=== PATIENT | male | born 1960 | race Caucasian/White ===

== ENCOUNTER → 2016-04-07 | Outpatient (CLI) | payer OTHER ==
[~2016-04-07] MED LIST: AMOX500C3 PO; GABA-113 PO; LISI-725 PO; METO25TA56 PO; MULT-506 PO; OXYC-57 PO; PRLSR20 PO; SUMA50TA15 PO; WARF2TAB PO
== END | disposition home or self-care (01) ==
LOC: C.RDSM 16:15
PROVIDERS: ATTEND Physical Medicine & Rehabilitation Sports Medicine
DX: Z96.651 Presence of right artificial knee joint (principal)

== ENCOUNTER → 2016-05-21 | Outpatient (CLI) | payer OTHER ==
[~2016-05-21] MED LIST changes: +GADAVIST IV PRN; -WARF2TAB PO
--- NOTE | 2016-05-21 12:31 | DIAGNOSTIC IMAGING REPORT ---
MRI OF THE BRAIN WITHOUT AND WITH IV CONTRAST CLINICAL HISTORY: Headaches. COMPARISON STUDY: MRI of the brain December 27, [address] February 09, 2013. TECHNIQUE: Utilizing a 1.5 Hannah magnet and dedicated coil, multiplanar, multiecho imaging of the brain was performed pre and postcontrast administration. IV administration of 10.5 mL of Gadavist contrast was uneventful. FINDINGS: There are no areas of restricted diffusion. No acute intracranial hemorrhage, midline shift or mass effect is present. Ventricular system is unremarkable. Basilar cisterns are patent. There are no extra-axial collections. Flow-voids for the major intracranial vessels are present. There are no intracranial masses or areas of pathologic enhancement. Calvarial signal is maintained. There is no fluid within the mastoid air cells. There is minimal mucosal thickening of the ethmoid sinuses. Orbits are unremarkable. No areas of signal abnormality are identified. IMPRESSION: Unremarkable MRI of the brain. Electronically signed by: Wilfred Serna M.D. 05/21/2016 12:30 PM Dictated Date/Time: 05/21/2016 12:23 PM
== END | disposition home or self-care (01) ==
LOC: C.MRIBC 09:21
PROVIDERS: ATTEND Anesthesiology
DX: R51 Headache (principal)

== ENCOUNTER → 2016-06-23 | Outpatient (CLI) | payer OTHER ==
--- NOTE | 2016-06-23 13:43 | DIAGNOSTIC IMAGING REPORT ---
MRI OF THE CERVICAL SPINE COMBO CLINICAL HISTORY: Cervicalgia. Postlaminectomy syndrome. COMPARISON STUDY: CT of the cervical spine dated 02/08/2013. MRI of the cervical spine dated 10/19/2014. TECHNIQUE: MRI of the cervical spine is performed utilizing various T1 and T2-weighted sequences in the axial and sagittal planes. Contrast-enhanced sequences are acquired following the IV administration of 10 cc of Gadavist. FINDINGS: Cervical spine: Vertebral body height is maintained throughout the cervical spine. There is straightening of the cervical lordosis with reversal centered at C5. There are postoperative changes from anterior fusion from C5 to C7. The spinous processes appear intact. The atlantodental articulation appears maintained noting productive degenerative change. No destructive bony lesion is identified. Intervertebral discs: There is evidence of discectomy at C5-C6 and C6-C7. Loss of height is noted at C4-C5. Spinal cord: There is high-grade stenosis seen at C3-C4. There is increased T2 signal within the cervical cord at this level, likely representing myelomalacia. The remainder of the cervical cord is normal in morphology and signal intensity. No abnormal enhancement is seen on the postcontrast images. C2-C3: A posterior disc osteophyte complex eccentric to the left abuts the ventral cord. Uncovertebral and facet arthropathy causes moderate left greater than right neural foraminal stenosis. C3-C4: A posterior disc osteophyte complex effaces the ventral cord. The minimum AP canal diameter at this level measures 5.5 mm. Uncovertebral and facet arthropathy cause severe right and moderate left neural foraminal stenosis at this level. C4-C5: A posterior disc osteophyte complex effaces the ventral cord. Uncovertebral and facet arthropathy cause moderate to severe left and moderate right neural foraminal stenosis. C5-C6: The central canal is grossly clear. There is mild left-sided neural foraminal stenosis secondary to uncovertebral arthropathy. C6-C7: The central canal appears clear. Uncovertebral and facet arthropathy cause moderate to severe bilateral neural foraminal stenosis. C7-T1: Unremarkable. Soft tissues: The prevertebral and paraspinous soft tissues are normal as visualized. Brain parenchyma: Partially imaged brain parenchyma at the skull base is within normal limits. IMPRESSION: 1. There is high-grade stenosis at C3-C4. There is mild myelomalacia of the cervical cord at this level, likely related to high-grade stenosis. 2. Multilevel cervical spondylosis at additional levels as detailed above. See discussion for detailed level by level analysis. 3. There are postoperative changes from C5 to C7 anterior spinal fusion. Dictated: 06/23/2016 12:12 PM Transcribed: 06/23/2016 1:42 PM [email or web address] Electronically signed by: Atilio Pace M.D. 06/23/2016 1:53 PM Dictated Date/Time: 06/23/2016 12:12 PM
== END ==
LOC: C.MRIBC 10:41
PROVIDERS: ATTEND Anesthesiology
DX: M54.2 Cervicalgia (principal); M96.1 Postlaminectomy syndrome, not elsewhere classified

== ENCOUNTER → 2016-09-02 | Outpatient (CLI) | payer OTHER ==
[~2016-09-02] MED LIST changes: -GADAVIST IV PRN; -OXYC-57 PO
--- NOTE | 2016-09-02 08:10 | DIAGNOSTIC IMAGING REPORT ---
CT OF THE CERVICAL SPINE CLINICAL HISTORY: Neck pain, frequent headaches. History of cervical spine fracture with surgery. COMPARISON STUDY: 02/08/2013 , MRI dated 06/23/2016 CT DOSE: 314.68 mGy.cm TECHNIQUE: CT scan of the cervical spine was performed from the skull base to the thoracic inlet. Images are reviewed in the axial, sagittal, and coronal planes. IV contrast was not administered for this examination. FINDINGS: The visualized portions of the lung apices reveal no evidence of pneumothorax. The prevertebral soft tissues are normal. No fractures or traumatic subluxations are visualized. There are postsurgical changes at the C5-6 and C6-7 levels. There is an anterior metallic plate spanning the C5-C7 level. There is C5-6 fusion. There is no evidence of bony fusion at the C6-7 level and there is endplate irregularity. There are progressive degenerative changes at the C4-5 level with bilateral foraminal narrowing. There is also right-sided foraminal narrowing at the C3-4 level. There is minor anterolisthesis of C3 on C4 which is felt to be degenerative . IMPRESSION: 1. Postsurgical changes the C5-6 and C6-7 levels 2. No acute fractures identified 3. Progressive degenerative changes at the C4-5 level. 4. Minor anterolisthesis of C3 on C4 which is felt to be degenerative 5. Bilateral foraminal narrowing the C4-5 level, and right-sided foraminal narrowing the C3-4 level. Electronically signed by: Jeremie Cohen M.D. 09/02/2016 8:09 AM Dictated Date/Time: 09/02/2016 8:01 AM
== END | disposition home or self-care (01) ==
LOC: C.CTS 07:46
PROVIDERS: ATTEND Orthopaedic Surgery
DX: M54.2 Cervicalgia (principal)

== ENCOUNTER → 2016-10-02 | Outpatient (CLI) | payer OTHER | END | disposition home or self-care (01) | LOC: C.LABSPEC 17:29 | PROVIDERS: ATTEND Podiatrist Foot & Ankle Surgery | DX: L60.0 Ingrowing nail (principal) ==

== ENCOUNTER → 2017-01-05 | Outpatient (CLI) | payer OTHER | END | disposition home or self-care (01) | LOC: C.RDSM 13:16 | PROVIDERS: ATTEND Physical Medicine & Rehabilitation Sports Medicine | DX: Z96.653 Presence of artificial knee joint, bilateral (principal) ==

== ENCOUNTER → 2017-04-13 | Outpatient (CLI) | payer OTHER | END | disposition home or self-care (01) | LOC: C.RDSM 13:58 | PROVIDERS: ATTEND Physical Medicine & Rehabilitation Sports Medicine | DX: M25.521 Pain in right elbow (principal) ==

== ENCOUNTER → 2017-06-30 | Day surgery (SDC) | payer OTHER ==
[2017-06-02 10:04] VITALS: Ht 182.9 cm; Wt 111.4 kg
[~2017-06-30] VITALS: Ht 182.9 cm; Wt 111.4 kg
[~2017-06-30] MED LIST changes: +ASPI81TA28 PO; +ATROPINE SULFATE 0.1 MG/ML 5ML SYR IV PRN; +CEFAZOLIN 2000MG IV PUSH 15 ML IV SCH; +CHOL1000 PO; +DEXAMETHASONE SOD INJ 4 MG/ML VIAL ONE; +EpHEDrine SULFATE INJ 50 MG/ML AMP IV PRN; +FENTANYL CITRATE INJ 50 MCG/1 ML 2 ML VIAL IV PRN; +FENTANYL CITRATE INJ 50 MCG/1 ML 2 ML VIAL ONE; +HYDROCODONE/ACETAMIN 5/325MG TAB ONE; +HYDROCODONE/ACETAMIN 5/325MG TAB PO PRN; +LACTATED RINGER'S 1000ML 1,000 ML IV SCH; +LIDOCAINE HCL 2% 2 ML VIAL (20MG/ML) ONE; -METO25TA56 PO; +MIDAZOLAM HCL 1 MG/ML 2ML VIAL ONE; +NAPR-1169 PO; +OMEP40CA41 PO; +ONDANSETRON INJ 2 MG/ML 2 ML VIAL IV PRN; +ONDANSETRON INJ 2 MG/ML 2 ML VIAL ONE; -PRLSR20 PO; +PROPOFOL IV EMULSION 10 MG/ML 20 ML VIAL IV ONE; +TPRSR25 PO
--- NOTE | 2017-06-30 06:59 | History & Physical Bridge Note ---
H&P Re-Evaluation Bridge Note: I have examined the patient, reviewed the History & Physical and in the interval since the performance of the History & Physical I have noted the following changes of clinical significance: consent obtained.No changes noted
--- NOTE | 2017-06-30 07:01 | Discharge Instructions ---
Discharge Instructions Date of Service Jun 30, 2017. Visit Reason for Visit: Right Eblow Cubital Tunnel Syndrome, Djd, Loose Axel Discharge Discharge Diagnosis / Problem: same Discharge Goals Goal(s): Decrease discomfort, Improve function Medications Stopped Medications Name(s): Naprosyn hasn't taken since Sat. Restart Stopped Medication(s): use all scripts as directed. Activity Recommendations Activity Limitations: as noted below Lifting Limitations: until after follow-up appointment Exercise/Sports Limitations: until after follow-up appointment May Resume Sexual Activity: after follow-up appointment Shower/Bathe: keep incision dry Driving or Machine Use: Anesthesia . Post Anesthesia Instructions: If you have had General Anesthesia or IV Sedation: * Do not drive today. * Resume driving when surgeon permits. * Do not make important decisions or sign legal documents today. * Call surgeon for: 1. Temperature elevations greater than 101 degrees F. 2. Uncontrollable pain. 3. Excessive bleeding. 4. Persistent nausea and vomiting. 5. Medication intolerance (nausea, vomiting or rash). * For nausea and vomiting use only clear liquids such as: tea, soda, bouillon until nausea subsides, then gradually increase diet as tolerated. * If you have any concerns or questions, call your surgeon's office. If physician is unavailable and it is an emergency, call 911 or go to the nearest emergency room. . Instructions / Follow-Up Instructions / Follow-Up DIET: * Resume previous diet. MEDICATIONS: * Please take your prescriptions as instructed at your pre-op appointment and/ or see medication discharge instructions listed above. * If concerns develop, call your physician's office at . SPECIAL CARE INSTRUCTIONS: * Ice/Elevate as instructed. * Keep dressing clean, dry, intact. * Your surgical extremity may be discolored due to prepping agents used on the skin. A bluish-green tint is a normal variant and should not cause alarm. Call your doctor at [phone] if: * Temperature above 101 degrees * Pain not relieved by pain medicine ordered * There is increased drainage or redness from any incision * You have any unanswered questions, problems or concerns. FOLLOW UP VISIT: * If not already scheduled, please call the office at to schedule a follow-up appointment. Diet Recommendations Recommended Home Diet: resume previous diet Procedures Procedures Performed: see op note Pending Studies Studies pending at discharge: no Medical Emergencies . Who to Call and When: Medical Emergencies: If at any time you feel your situation is an emergency, please call 911 immediately. . Non-Emergent Contact Non-Emergency issues call your: Specialist Call Non-Emergent contact if: wound has increased drainage, wound has increased redness, wound has increased pain . . "Provider Documentation" section prepared by Gunnar Bailey. .
--- NOTE | 2017-06-30 09:19 | [facility] Post Operative Brief Note ---
Immediate Operative Summary Operative Date Jun 30, 2017. Pre-Operative Diagnosis Right Elbow Cubital Tunnel Syndrome, DJD, Loose Bodies Post-Operative Diagnosis same as pre op Procedure(s) Performed Right Elbow Open Ulnar Nerve Transposition, Medial Arthrotomy With Loose Body Removal And Debridement Surgeon Dr [facility] R[facility] Surgeon(s) Romario Valadez MD and CRISTIAN Bolton Estimated Blood Loss 25ml Findings Consistent with Post-Op Diagnosis Fluids (cc crystalloids) 1000cc Specimens none Drains None Anesthesia Type General Complication(s) none Disposition Accompanied Pt To Recovery: no Disposition: Recovery Room / PACU
--- NOTE | 2017-06-30 09:41 | OPERATIVE REPORT ---
DATE OF OPERATION: 06/30/2017 SURGEON: Gunnar Bailey MD. DRAFTING INSTRUCTOR: Rory. SECOND DRAFTING INSTRUCTOR: Hadley Briggs PA-C. PREOPERATIVE DIAGNOSIS: Right elbow contracture with ulnar neuritis, degenerative disease and loose bodies. POSTOPERATIVE DIAGNOSIS: Same. OPERATION PERFORMED: 1. Open right ulnar nerve decompression and subcutaneous transposition. 2. Arthrotomy medial elbow with debridement, excision of loose bodies and resection of osteophytes and release of anterior and posterior capsule and posterior ulnar collateral ligament. PERIOPERATIVE SITUATION: Medically cleared male with intractable numbness, tingling of his hand, has significant stiffness of his elbow with range of motion of -15 to roughly 85 degrees, has significant degenerative disease on the x-ray and some loose bodies or significant ulnar nerve findings on physical exam and EMG. DESCRIPTION OF THE PROCEDURE: The patient was properly identified, site verified, consent verified, 2 grams of Ancef confirmed as being given. The right upper extremity was prepped and draped in usual routine fashion. The arm was exsanguinated with rubber Esmarch bandage and the tourniquet inflated to 250 mmHg for a total of approximately 45 minutes. A medial incision was then made. There was exuberant scar tissue about the ulnar nerve. Care was taken to protect the antebrachial cutaneous nerves. The nerve was then identified proximally and then released from proximal to distal. There was large vessels around the nerve. They were all tediously dissected and clean. The nerve has been easily transposable. The intermuscular septum was quite hypertrophic. It was released proximally and left attached distally as it was dissected to use for one of the fascial slings. A second fascial sling was then made. The nerve was then protected. The posterior oblique ligament of the ulnar collateral ligament was then released. The joint entered and loose bodies were found. They were attached to some soft tissues, pedunculated and they were excised and the large osteophyte removed from the medial olecranon. The elbow was then manipulated and extension improved to about 5 degrees from 0 and flexion improved from roughly 80-85 degrees to 115-120 degrees. There was full pronation and supination. The procedure was then terminated. The wound was then irrigated, tourniquet deflated. There was no major bleeding. The nerve was then transposed anteriorly and the fascial slings utilized and tied down with 2-0 plain. There was no undue tension on the nerve. The wound was then irrigated one final time and closed with a running 3-0 nylon suture and appropriately dressed with a bulky dressing. The patient transferred to the recovery room in satisfactory condition having tolerated the procedure well. The patient had normal ulnar nerve function upon awakening from anesthesia. I attest to the content of the Intraoperative Record and any orders documented therein. Any exception s are noted below.
[2017-06-30 10:08] VITALS: TEMP 36.5
--- NOTE | 2017-06-30 10:24 | Anesthesia Progress Nt - [facility] ---
Anesthesia Post Op Note Date & Time Jun 30, 2017 at 10:24 Vital Signs Pain Intensity: 2 Vital Signs Past 12 Hours Date Time Temp Pulse Resp B/P (MAP) Pulse Ox O2 Delivery O2 Flow Rate FiO2 06/30/17 10:08 36.5 61 16 139/77 (97) 94 Room Air 06/30/17 10:01 156/79 06/30/17 09:59 64 14 95 06/30/17 09:59 63 14 06/30/17 09:58 59 14 96 06/30/17 09:58 59 14 06/30/17 09:57 62 12 06/30/17 09:57 61 12 93 06/30/17 09:57 36.9 63 20 147/92 95 Room Air 06/30/17 09:56 135/100 06/30/17 09:52 60 15 06/30/17 09:52 60 15 95 06/30/17 09:51 147/92 06/30/17 09:49 60 14 97 06/30/17 09:49 58 14 06/30/17 09:48 58 13 06/30/17 09:48 59 13 97 06/30/17 09:47 56 12 06/30/17 09:47 57 12 97 06/30/17 09:46 124/85 06/30/17 09:42 60 16 97 06/30/17 09:42 59 16 06/30/17 09:41 138/99 06/30/17 09:37 61 14 06/30/17 09:37 61 14 97 06/30/17 09:36 59 11 06/30/17 09:36 59 11 145/95 97 06/30/17 09:35 139/89 06/30/17 09:32 131/104 06/30/17 09:31 60 11 06/30/17 09:31 58 11 97 06/30/17 09:27 147/91 06/30/17 09:26 62 12 06/30/17 09:26 37.0 65 16 147/91 95 Mask 8 06/30/17 09:26 62 12 96 06/30/17 06:38 36.6 62 18 153/96 (115) 95 Room Air Notes Mental Status: alert / awake / arousable, participated in evaluation Pt Amnestic to Procedure: Yes Nausea / Vomiting: adequately controlled Pain: adequately controlled Airway Patency, RR, SpO2: stable & adequate BP & HR: stable & adequate Hydration State: stable & adequate Anesthetic Complications: no major complications apparent
[2017-06-30 10:46] VITALS: BP 152/90; PULSE 60; O2SAT 94
--- NOTE | 2017-07-01 13:43 | [facility] Operative Report ---
Operative Report Operative Date Jun 30, 2017. Pre-Operative Diagnosis Right Elbow Cubital Tunnel Syndrome, DJD, Loose Bodies Post-Operative Diagnosis Right elbow same as pre op Procedure(s) Performed Right Elbow Open Ulnar Nerve Transposition, Medial Arthrotomy With Loose Body Removal And Debridement Surgeon Dr Bailey Electrical Line Splicer Surgeon(s) Romario Valadez MD and CRISTIAN Bolton Estimated Blood Loss 25ml Findings Right elbow ulnar nerve entrapment, osteophytes, and loose bodies Fluids 1000cc Specimens none Drains None Anesthesia Type General Complication(s) none Disposition no Recovery Room / PACU Indications This 57-year-old white male presented to the office complaints of numbness and tingling in his ring and little fingers as well as loss of motion in his right arm. He had tried home therapy without improvement. X-ray and EMG were obtained. He elected to proceed with surgical intervention in hopes of alleviating his symptoms. Description of Procedure Patient was taken to the operating room where he was given general anesthesia. He was prepped and draped in usual sterile fashion. Please see Dr. Bailey's operative report for specifics of the procedure. I was present for the entire case from initial patient positioning through final wound closure. Assistance was provided in tissue retraction, hemostasis, and final wound closure. Patient was taken to the recovery room in satisfactory condition. I attest to the content of the Intraoperative Record and any orders documented therein. Any exceptions are noted below.
== END | disposition home or self-care (01) ==
LOC: X.SURG 06:26
PROVIDERS: ATTEND Physical Medicine & Rehabilitation Sports Medicine
DX: G56.21 Lesion of ulnar nerve, right upper limb (principal); I10 Essential (primary) hypertension; K21.9 Gastro-esophageal reflux disease without esophagitis; I48.0 Paroxysmal atrial fibrillation; M19.90 Unspecified osteoarthritis, unspecified site; M10.9 Gout, unspecified; M50.30 Other cervical disc degeneration, unspecified cervical region; M51.36 Other intervertebral disc degeneration, lumbar region; F17.200 Nicotine dependence, unspecified, uncomplicated; Z86.010 Personal history of colon polyps; Z79.82 Long term (current) use of aspirin; Z80.3 Family history of malignant neoplasm of breast; Z82.49 Family history of ischemic heart disease and other diseases of the circulatory system; Z82.3 Family history of stroke; Z83.3 Family history of diabetes mellitus; Z80.0 Family history of malignant neoplasm of digestive organs

== ENCOUNTER → 2017-08-05 | Outpatient (CLI) | payer OTHER ==
[~2017-08-05] MED LIST changes: -ATROPINE SULFATE 0.1 MG/ML 5ML SYR IV PRN; -CEFAZOLIN 2000MG IV PUSH 15 ML IV SCH; -DEXAMETHASONE SOD INJ 4 MG/ML VIAL ONE; -EpHEDrine SULFATE INJ 50 MG/ML AMP IV PRN; -FENTANYL CITRATE INJ 50 MCG/1 ML 2 ML VIAL IV PRN; -FENTANYL CITRATE INJ 50 MCG/1 ML 2 ML VIAL ONE; -HYDROCODONE/ACETAMIN 5/325MG TAB ONE; -HYDROCODONE/ACETAMIN 5/325MG TAB PO PRN; -LACTATED RINGER'S 1000ML 1,000 ML IV SCH; -LIDOCAINE HCL 2% 2 ML VIAL (20MG/ML) ONE; -MIDAZOLAM HCL 1 MG/ML 2ML VIAL ONE; -ONDANSETRON INJ 2 MG/ML 2 ML VIAL IV PRN; -ONDANSETRON INJ 2 MG/ML 2 ML VIAL ONE; -PROPOFOL IV EMULSION 10 MG/ML 20 ML VIAL IV ONE
--- NOTE | 2017-08-07 09:54 | PROGRESS NOTE ---
DATE: 08/07/2017 At this point in time, the patient is comfortable. Pain is manageable. Only using oral meds. Vital signs are stable. He is afebrile. Neurovascular check right upper extremity is within normal limits. Drainage bulb is mild. Wound dressing clean, dry and intact. Cultures pending. Pre-outpatient culture reveals gram negative bacilli. Will likely adjust antibiotics today based on sensitivities of that. Also, obtain a PICC line consent today and have that inserted. Likely discharge on Thursday with outpatient antibiotics for 2 weeks.
== END | disposition home or self-care (01) ==
LOC: C.LABSPEC 14:36
PROVIDERS: ATTEND Physician Assistant
DX: S51.009A Unspecified open wound of unspecified elbow, initial encounter (principal); X58.XXXA Exposure to other specified factors, initial encounter

== ENCOUNTER → 2017-08-05 | Outpatient (CLI) | payer OTHER ==
[~2017-08-05] MED LIST changes: +OXYC-57 PO
--- NOTE | 2017-08-05 14:39 | DIAGNOSTIC IMAGING REPORT ---
R ELBOW 2 VIEWS HISTORY: 57 years-old Male RIGHT ELBOW POST OP ARTHROTOMY acute right elbow pain COMPARISON: ] [Radiographs 04/23/2017 TECHNIQUE: 3 views of the right elbow FINDINGS: Fine bony detail is obscured secondary to overlying casting material. Degenerative changes are noted within the radiocapitellar and trochlear olecranon articulations. Moderate to extensive marginal spurring is noted about the elbow with corticated loose bodies seen adjacent to the trochlea medially. Soft tissue prominence about the elbow may be postsurgical. Spurring about the olecranon process noted. No opaque foreign body. No definite acute fracture or dislocation. IMPRESSION: 1. Likely postprocedural soft tissue prominence about the elbow without acute fracture or dislocation. No retained foreign bodies. 2. Degenerative changes as above. The above report was generated using voice recognition software. It may contain grammatical, syntax or spelling errors. Electronically signed by: Harry Potts M.D. 08/05/2017 2:38 PM Dictated Date/Time: 08/05/2017 2:36 PM
== END | disposition home or self-care (01) ==
LOC: C.RDSM 14:00
PROVIDERS: ATTEND Physician Assistant
DX: Z48.89 Encounter for other specified surgical aftercare (principal)

== ENCOUNTER 2018-04-27 10:47 | Inpatient (IN) ==
--- NOTE | 2018-04-19 16:27 | PAT Medication Instructions ---
Medication Instructions Date of Service April 19, 2018 Home Medications Medication Instructions Recorded hydrocodone-acetaminophen [Donora] 1 - 2 tab PO Q6H PRN #14 tab 04/07/18 amoxicillin 500 mg PO UD PRN aspirin 325 mg PO QAM gabapentin 300 mg PO TID lisinopril 20 mg PO QAM metoprolol succinate 25 mg PO QPM naproxen 500 mg PO BID omeprazole 40 mg PO QAM albuterol sulfate [Ventolin HFA] 2 puff INHALATION DIRECTED PRN hydrocodone-acetaminophen [Donora] 1 - 2 tab PO Q6H PRN Continue as directed amoxicillin 500 mg PO UD PRN ASK your surgeon for instructions naproxen 500 mg PO BID ASK your prescriber and surgeon aspirin 325 mg PO QAM (Check with Dr. Zamora and Dr. Covington) DO NOT take the morning of surgery lisinopril 20 mg PO QAM Take morning of surgery With a small sip of water, OTHERWISE NOTHING TO EAT OR DRINK AFTER MIDNIGHT: gabapentin 300 mg PO TID omeprazole 40 mg PO QAM albuterol sulfate [Ventolin HFA] 2 puff INHALATION DIRECTED PRN (if needed, and bring with you to the hospital) hydrocodone-acetaminophen [Donora] 1 - 2 tab PO Q6H PRN (if needed, may be taken up to four hours before surgery) Take evening before surgery gabapentin 300 mg PO TID albuterol sulfate [Ventolin HFA] 2 puff INHALATION DIRECTED PRN (if needed) hydrocodone-acetaminophen [Donora] 1 - 2 tab PO Q6H PRN (if needed) metoprolol succinate 25 mg PO QPM Other Notes If you have any questions please call us at [phone] or [phone] or [phone] or [phone]
--- NOTE | 2018-04-20 08:37 | Anesthesiology Consultation ---
Date of Service April 20, 2018 Assessment & Plan (1) Encounter for pre-operative examination: Plan: *caution ETOH abuse* Chart Review Chart Review: Acceptable Risk for Surgery and Patient seen in Pre Admission Testing Teaching & Discussion Instructed NPO after midnight before surgery, except medications with 15 cc of water. Medication instructions provided according to the PAT guidelines. History Surgery Operation Date: 04/27/18 13:00 Proposed Procedures p Left Video Assisted Thoracoscopy with Decortication - Gary Covington MD, FACS Height/Weight Height: 6 ft Weight: 106.6 kg Allergies Allergy/AdvReac Type Severity Reaction Status Date / Time Iodinated Contrast- Oral and Allergy Intermediate hives Verified 04/15/18 14:09 IV Dye Medications Home Medications Medication Instructions Recorded Confirmed Last Taken amoxicillin 500 mg PO UD PRN 12/11/17 04/15/18 Unknown aspirin 325 mg PO QAM 12/11/17 04/15/18 04/07/18 gabapentin 300 mg PO TID 12/11/17 04/15/18 04/07/18 lisinopril 20 mg PO QAM 12/11/17 04/15/18 04/07/18 metoprolol succinate 25 mg PO QAM 12/11/17 04/15/18 04/07/18 naproxen 500 mg PO BID 12/11/17 04/15/18 04/07/18 omeprazole 40 mg PO QAM 12/11/17 04/15/18 04/07/18 albuterol sulfate [Ventolin HFA] 2 puff INHALATION DIRECTED PRN 04/07/1801/22 Unknown hydrocodone-acetaminophen [[place]] 1 - 2 tab PO Q6H PRN #14 tab 04/07/18 Unknown Past Medical History Medical History Ribs, multiple fractures (Resolved) Initially fx in 12/2017, 4 ribs L side. Noted on 04/2018 x-rays to be re- fractured. Hypertension (Chronic) Alcohol abuse Atrial fibrillation Paroxysmal, follows with Dr. Zamora with [facility], last seen 10/2017. On ASA 325mg daily Chronic back pain Degenerative disc disease GERD (gastroesophageal reflux disease) Osteoarthritis Past Family History Family History Brother Family history of diabetes mellitus Sister Breast cancer Mother Breast cancer Past Surgical History Surgical History History of back surgery (Resolved) History of appendectomy (Resolved) Fusion of spine CERVICAL FUSION -- C4-C5-C6. FULL ROM. H/O elbow surgery R side, nerve transposition, complicated subsequent infection History of cholecystectomy History of colonoscopy History of esophagogastroduodenoscopy (EGD) History of herniorrhaphy RIGHT INGUINAL History of tonsillectomy History of total knee replacement BILATERAL Past Anesthesia History No Hx of Anesthesia Complications and No Family Hx of Anesthesia Complications History of PONV No Motion Sickness Screening History of Motion Sickness: No Social History Smoking Status: Current every day smoker tobacco type: cigarettes Smoking cigarettes per day: 1/2 PPD X 24 YEARS Do You Dip or Chew Tobacco: No Hx Alcohol Use: Yes Alcohol type: beer and hard liquor alcohol intake frequency: 3 or more drinks per day Hx Substance Use: No substance use type: does not use Exercise / Class Metabolic Activity II 4-5 Yardwork/Stairs/Walk up hill (no CP or SOB with stairs) Review of Systems Pt denies any recent chest pain, shortness of breath, palpitations, fever or URI. +Cough recently Physical Exam Vital Signs BP: 139/97 (pt reports anxiety) P: 79bpm SPO2: 97% RA T: 97.8 R: 16 ENMT Mouth: no dental restorations, no chipped teeth and no loose teeth Thyromental Distance: < 3.5 Finger Breadths (3) Mallampati Class: I Neck + limited neck extension (mildly limited 2/2 fusion) and + facial hair (full medium length srinivasan and mustache) 4 inch scar down posterior midline of neck Respiratory normal respiratory effort Auscultation: lungs clear to auscultation bilaterally Cardiovascular Rate/Rhythm: regular rate; + abnormal rhythm Heart Sounds: no murmur Vessels: no carotid bruit Extremities: no edema Irregularly irregular. Testing Electrocardiogram Date: 04/07/18 Findings: + AFIB @ (90) iRBBB. Chest X-Ray Date: 04/07/18 Slight increase in volume of a left pleural effusion. No evidence pneumothorax. Laboratory Results Blood Type O Positive 04/20/18 08:52 Antibody Screen NEGATIVE 04/20/18 08:52 Laboratory Tests 04/07/18 04/07/18 11:00 11:00 WBC 8.86 Hgb 14.3 Hct 44.3 Plt Count 240 Sodium 138 Potassium 4.4 Chloride 108 H Carbon Dioxide 23 BUN 12 Creatinine 0.75 Glucose 96
[~2018-04-27 10:47] MED LIST changes: -AMOX500C3 PO; -ASPI81TA28 PO; -CHOL1000 PO; -GABA-113 PO; -LISI-725 PO; +LR 15ML/HR IV SCH; -MULT-506 PO; -NAPR-1169 PO; -OMEP40CA41 PO; -OXYC-57 PO; -SUMA50TA15 PO; -TPRSR25 PO
[2018-04-27] MEDS ORDERED: ONDANSETRON INJ 2 MG/ML 2 ML VIAL ONE (11:48)
[2018-04-27] MEDS ORDERED: MIDAZOLAM HCL 1 MG/ML 2ML VIAL ONE (11:48)
[2018-04-27] MEDS ORDERED: PROPOFOL IV EMULSION 10 MG/ML 20 ML VIAL IV ONE (11:48)
[2018-04-27] MEDS ORDERED: DEXAMETHASONE SOD INJ 4 MG/ML VIAL ONE (11:48)
[2018-04-27] MEDS ORDERED: LIDOCAINE HCL 2% 2 ML VIAL/AMP(20MG/ML) INFIL ONE (11:48)
[2018-04-27] MEDS ORDERED: fentaNYL citrate 100 MCG/2 ML VIAL ONE ×2 (11:48)
[2018-04-27] MEDS ORDERED: NEOSTIGMINE METHYLSULFATE 5 MG/5 ML SYR ONE (11:48)
[2018-04-27] MEDS ORDERED: GLYCOPYRROLATE 0.2 MG/ML VIAL ONE (11:48)
[2018-04-27] MEDS ORDERED: BUPIVACAINE 0.5 % 5 MG/1 ML MPF 30ML VIAL ONE (11:49)
[2018-04-27] MEDS ORDERED: BUPIVACAINE LIPOSOME 1.3% 266 MG/20 ML VIAL INFIL ONE (11:49)
[2018-04-27] MEDS ORDERED: SODIUM CHLORIDE 0.9% PF 50 ML VIAL ONE (11:50)
[2018-04-27] MEDS ORDERED: LABETALOL HCL IV 5 MG/ML 20ML IV PRN (12:08)
[2018-04-27] MEDS ORDERED: ATROPINE SULFATE 0.1 MG/ML 10ML SYR IV PRN (12:08)
[2018-04-27] MEDS ORDERED: HYDROmorphone INJ 1 MG/ML SYRINGE IV PRN (12:08)
[2018-04-27] MEDS ORDERED: ONDANSETRON INJ 2 MG/ML 2 ML VIAL IV PRN ×2 (12:08→18:00)
[2018-04-27] MEDS ORDERED: KETOROLAC 30 MG/ML VIAL IV PRN (12:08)
--- NOTE | 2018-04-27 12:14 | History & Physical Bridge Note ---
Date of Service April 27, 2018 History & Physical Bridge Note I have examined the patient, reviewed the History & Physical and in the interval since the performance of the History & Physical I have noted the following changes of clinical significance: no changes noted
[2018-04-27] MEDS ORDERED: CEFAZOLIN 250 MG/ML 1 GM VIAL ONE (13:28)
[2018-04-27] MEDS ORDERED: HYDROmorphone INJ 2 MG/ML SYR/VIAL ONE (13:32)
[2018-04-27] MEDS ORDERED: METOPROLOL TARTRATE 1 MG/ML VIAL IV ONE (13:53)
[2018-04-27] MEDS ORDERED: ESMOLOL HCL INJ 10 MG/ML 10ML VIAL IV ONE (13:53)
[2018-04-27] MEDS ORDERED: ROCURONIUM BROMIDE 10 MG/ML 5 ML VIAL ONE (13:53)
[2018-04-27] MEDS ORDERED: CEFAZOLIN 2000MG 2,000 MG/15 ML SYR IV SCH (14:51)
--- NOTE | 2018-04-27 14:59 | Post Operative Brief Note ---
Immediate Post Op Note v1 Date of Surgery April 27, 2018 Pre & Post Diagnosis Operation Date: 04/27/18 13:00 Pre-Op Diagnosis: Left Pleural Effusion Post-Op Diagnosis: Left Pleural Effusion Procedure Operation Date: 04/27/18 13:00 Actual Procedures p Left Video-Assisted Thoracoscopy with Decortication(Left) - Gary Covington MD, FACS Surgeon Gary Covington MD, FACS Blender Isabel FOSTER Estimated Blood Loss 10 Findings Consistent with Post-Op Diagnosis Drains Chest Tube and Palma Catheter
[2018-04-27] MEDS ORDERED: METOCLOPRAMIDE HCL INJ 5 MG/ML 2 ML VIAL IV ONE (15:20)
--- NOTE | 2018-04-27 15:32 | XRay Report ---
XR chest 1V portable CLINICAL HISTORY: decortication COMPARISON STUDY: 04/07/2018 FINDINGS: The heart is mildly enlarged. A left-sided chest tube is now evident. This 26 mm left apica l pneumothorax. There is left-sided subcutaneous emphysema. There are postsurgical changes in the cer vical spine. There is mild residual thickening. There is no lobar consolidation.[ IMPRESSION: 1. Decreased left pleural fluid and improved aeration of the left lung base 2. Interval placement of a left-sided chest tube. 26 mm left apical pneumothorax. Electronically signed by: Jeremie Cohen M.D. 04/27/2018 3:31 PM
--- NOTE | 2018-04-27 16:18 | Operative Report ---
DATE OF OPERATION: 04/27/2018 PREOPERATIVE DIAGNOSIS: Status post left blunt chest trauma with pleural effusion. POSTOPERATIVE DIAGNOSIS: Status post left blunt chest trauma with pleural effusion with trapped lung. PROCEDURE: Left thoracoscopy with limited decortication. SURGEON: Gary Covington MD FURNITURE RESTORER: CRISTIAN Oconnor ( Violet was present at the bedside through the entirety of the case, held the camera, and closed skin incisions at the conclusion). ANESTHESIA: General anesthesia, with endotracheal intubation with a double lumen tube. SPECIFICS OF PROCEDURE AND FINDINGS: A 57-year-old who suffered rib fractures a few months ago and has had some dull pain. He said eventually it resolved; however, it recurred about a month ago, and he has been having pain with inspiration, and an x-ray showed blunting of his left hemidiaphragmatic sulcus, and then, a CT scan showed fluid in his chest. It did appear to have some loculations. I felt that a thoracoscopy would better serve this man given the chronicity of this problem. On 04/27/2018, the patient was brought to the operating room and underwent an uncomplicated left thoracoscopy. He did have a trapped lung. We did extensive decortication of the left lower lobe and a more limited decortication of the upper lobe. We drained about 200 mL of fluid. He tolerated it quite well with negligible blood loss. DESCRIPTION OF PROCEDURE: Patient was brought to the operating room and laid in supine position. General anesthesia induced. Endotracheal intubation was performed with a double lumen tube. Patient was turned in the right lateral decubitus position. His left chest was prepped and draped in the usual sterile fashion. Prophylactic antibiotics were given. A timeout was called. A 5 mm incision was made anterior to the latissimus dorsi muscle at about the fifth interspace. Posterior to the scapula, another 5 mm incision was made. A 12 mm incision was made an interspace above the diaphragm at about the mid axillary line. There was fluid, and we drained this off and sent it for not only culture but also cytology. There were some adhesions between the upper lobe and the lower lobe, which were broken down. We carefully freed up some adhesions of the left lower lobe posteriorly to the aorta, and after freeing these up, we could see that the left lower lobe was trapped. We then grasped the pleura, and we were able to get an edge of it by peeling away from the fissure, and then we used Kitner cotton tipped applicators with forceps, and we were able to decorticate the entire left lower lobe. This worked very nicely, and he had very little bleeding. We then removed some of this pleura from the upper lobe, but really the upper lobe had been spared this process. It was also fully expanded on x-ray. We did not have a need for a pleurectomy. Exparel 266 mg was mixed with 30 mL of 0.25% Marcaine and 250 mL of normal saline. This had been injected into all 3 port sites. This was done before main incisions. We then used it to inject each of the rib spaces from the 2nd to the 11th rib for intercostal blocks. We did this under thoracoscopic guidance. After decorticating this, we inflated the lung, which really did not have an air leak. The lung inflated quite nicely. A 24-Polish chest tube was placed in the midaxillary 12 mm incision and held in place with heavy silk suture. A 4-0 Monocryl was used to close each of the incisions. He tolerated it well with negligible blood loss. Upon performing the surgery, it appears to me that he had several rib fractures that appeared to have callus around them, and they were able to be seen intrathoracically. He had no other ventilatory problems, and I think that we will discuss this in more detail after he recovers from the surgery. I attest to the content of the Intraoperative Record and any orders documented therein. Any exception s are noted below.
--- NOTE | 2018-04-27 16:41 | Anesthesiology Progress Note ---
Date of Service April 27, 2018 Anesthesia Post Procedure Vital Signs Vital Signs: Temp Pulse Pulse Resp BP BP Pulse Ox 04/27/18 16:35 68 16 111/75 94 04/27/18 16:33 68 11 L 97/74 L 98 04/27/18 16:30 129 H 13 89/77 L 96 04/27/18 16:26 113 H 13 103/77 95 04/27/18 16:25 112 H 9 L 95 04/27/18 16:21 114 H 15 97/78 L 94 04/27/18 16:20 100 H 11 L 95 04/27/18 16:15 78 11 L 105/85 96 04/27/18 16:10 120 H 11 L 104/92 95 04/27/18 16:06 120 H 6 L 123/81 93 04/27/18 16:05 123 H 6 L 95 04/27/18 16:00 121 H 4 L 116/94 96 04/27/18 15:55 118 H 10 L 123/85 96 04/27/18 15:50 117 H 10 L 131/88 95 04/27/18 15:46 116 H 15 128/101 H 95 04/27/18 15:45 116 H 8 L 94 04/27/18 15:43 119 H 9 L 124/103 H 96 04/27/18 15:42 116 H 8 L 94 04/27/18 15:40 116 H 9 L 128/105 H 94 04/27/18 15:39 116 H 7 L 123/108 H 94 04/27/18 15:36 117 H 6 L 129/99 96 04/27/18 15:35 115 H 9 L 94 04/27/18 15:31 114 H 8 L 123/108 H 94 04/27/18 15:30 114 H 9 L 95 04/27/18 15:25 113 H 8 L 147/124 H 95 04/27/18 15:21 112 H 11 L 114/97 97 04/27/18 15:20 110 H 14 97 04/27/18 15:16 109 H 17 144/109 H 96 04/27/18 15:14 96.8 F L 107 H 108 H 12 78/71 L 144/109 H 97 04/27/18 15:13 96 04/27/18 11:16 97.7 F 87 18 130/89 97 Pain Intensity Left Lower Anterior Chest: Pain Intensity: 0 Notes Mental Status: alert / awake / arousable and participated in evaluation Patient Amnestic to Procedure: Yes Nausea / Vomiting: adequately controlled Pain: adequately controlled Airway Patency, RR, SpO2: stable & adequate BP & HR: stable & adequate and see Notes below Hydration State: stable & adequate Anesthetic Complications: no major complications apparent and Pt Satisfied with anesthetic care Notes: In PACU, the patient was found to be in afib/aflutter with heart rate in the 120s. A dose of metoprolol 2mg IV was given with minimal response in HR. A 12 lead EKG was ordered showing aflutter with ? ST elevation. An additional 2.5mg of metoprolol IV was administered which lowered the pt's HR to 60s-70s. The pt's blood pressure was 100s-120s/70s-90s. The patient was asymptomatic, he denied CP or SOB. Dr. Covington was notified. Dr. Covington spoke with the pt's data conversion analyst, Dr. Zamora. The plan was to admit the patient to telemetry, and Dr. Zamora was consulted to evaluate the patient. The patient was otherwise stable for discharge to telemetry. I spoke to the patient and he was understanding.
[2018-04-27] MEDS ORDERED: METOPROLOL TARTRATE 1 MG/ML VIAL IV STA (16:45)
[2018-04-27] MEDS ORDERED: METOCLOPRAMIDE HCL INJ 5 MG/ML 2 ML VIAL IV STA (18:00)
[2018-04-27] MEDS ORDERED: OXYCODONE HCL IR 5 MG TAB (IMMEDIATE RELEASE) PO PRN (18:00)
[2018-04-27] MEDS ORDERED: KETOROLAC TROMETHAMINE 15 MG/ML VIAL IV PRN (18:00)
[2018-04-27] MEDS ORDERED: MoRPHine SULFATE 2 MG/ML CARP IV PRN (18:00)
[2018-04-27] MEDS ORDERED: ALBUTEROL HFA 8 GM INHALER INH PRN (18:00)
[2018-04-27] MEDS: D5W AND 1/2NSS 1,000 ML IV SCH (18:03)
[2018-04-27] MEDS: MAGNESIUM SULFATE / D5W 1 GM/100 ML BAG IV SCH ×2 (18:04→19:25)
[2018-04-27] MEDS: ACETAMINOPHEN 1,000 MG/100 ML VIAL IV SCH (19:24)
[2018-04-27] MEDS: GABAPENTIN 300 MG CAP PO SCH (19:27)
[2018-04-27] MEDS: METOCLOPRAMIDE HCL INJ 5 MG/ML 2 ML VIAL IV SCH (19:29)
[2018-04-27] MEDS: DOCUSATE SODIUM 100 MG CAP PO SCH (19:30)
[2018-04-28] MEDS: ACETAMINOPHEN 1,000 MG/100 ML VIAL IV SCH (03:20)
[2018-04-28] MEDS: D5W AND 1/2NSS 1,000 ML IV SCH (03:26)
[2018-04-28] MEDS: METOCLOPRAMIDE HCL INJ 5 MG/ML 2 ML VIAL IV SCH ×2 (03:26→10:27)
[2018-04-28 06:04] LABS: Basophils # (auto) 0.01 K/uL (0-0.2); Basophils % (auto) 0.1 %; Hematocrit (blood only) 39.3 % (42-52); Hemoglobin 12.6 g/dL (14.0-18.0); Immature Granulocytes # (auto) 0.03 K/uL (0.00-0.02); Immature Granulocytes % (auto) 0.2 %; Lymphocytes # (auto) 0.87 K/uL (1.2-3.4); Lymphocytes % (auto) 5.3 %; Mean Corpuscular Volume 81.5 fL (80-100); Mean Platelet Volume 9.8 fL (7.4-10.4); Monocytes # (auto) 1.04 K/uL (0.11-0.59); Monocytes % (auto) 6.3 %; Neutrophils # (auto) 14.54 K/uL (1.4-6.5); Neutrophils % (auto) 88.1 %; Platelet Count 220 K/uL (130-400); RDW Coefficient of Variation 17.5 % (11.5-14.5); RDW Standard Deviation 52.3 fL (36.4-46.3); Red Blood Count 4.82 M/uL (4.7-6.1); White Blood Count 16.49 K/uL (4.8-10.8)
[2018-04-28 06:07] LABS: Mean Corpuscular Hgb Conc 32.1 g/dL (32-36)
[2018-04-28 06:20] LABS: Calcium 8.3 mg/dl (8.5-10.1); Creatinine Clr Calc Pharmacy 133.5 ml/min; Est GFR (African American) 117.6; Est GFR (Non-African American) 101.4; Potassium 4.6 mmol/L (3.5-5.1)
--- NOTE | 2018-04-28 07:01 | XRay Report ---
XR chest 1V portable HISTORY: 57 years-old Male decortication follow-up study in a patient with postsurgical changes of the left lung. COMPARISON: Chest radiographs 04/27/2018 TECHNIQUE: Portable AP view of the chest FINDINGS: Postoperative changes of the left lung redemonstrated. Stable positioning of the left-sided chest tub e. Slightly decreased subcutaneous emphysema about the lateral left chest wall and left supraclavicul ar distribution. Decreased size of the left apical pneumothorax, previously with pleural separation m easuring 2.6 cm, now measuring approximately 1.9 cm. Mild right hemidiaphragmatic elevation is unchan ged. Cardiac silhouette appears unchanged. Mild subsegmental bibasilar opacities suggest atelectasis. Trace bilateral pleural effusions. Suggested fracture of the lateral left ninth rib. Fusion hardware of the cervical spine noted. IMPRESSION: 1. Postoperative changes of the left lung with stable positioning of the left chest tube. 2. Decreased size of the left hydropneumothorax with decreased subcutaneous emphysema about the left chest wall and left supraclavicular distribution. The above report was generated using voice recognition software. It may contain grammatical, syntax o r spelling errors. Electronically signed by: Harry Potts M.D. 04/28/2018 7:00 AM
[2018-04-28] MEDS: DOCUSATE SODIUM 100 MG CAP PO SCH (08:32)
[2018-04-28] MEDS: GABAPENTIN 300 MG CAP PO SCH (08:33)
[2018-04-28] MEDS ORDERED: LISINOPRIL 20 MG TAB PO SCH (09:00)
[2018-04-28] MEDS ORDERED: PANTOprazole 40 MG TAB PO SCH (09:00)
[2018-04-28] MEDS ORDERED: METOPROLOL SUCC 25MG EXT REL TAB PO SCH (09:00)
[2018-04-28] MEDS ORDERED: ENOXAPARIN INJ 40 MG/0.4 ML SYR SQ SCH (09:00)
[2018-04-28] MEDS ORDERED: ASPIRIN 325 MG ECTAB PO SCH (09:00)
[2018-04-28] MEDS ORDERED: METOPROLOL SUCC 25MG EXT REL TAB PO ONE (10:00)
[2018-04-28] MEDS ORDERED: ACETAMINOPHEN 325 MG TAB PO SCH (10:00)
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
--- NOTE | 2018-04-28 10:36 | XRay Report ---
XR chest 1V portable CLINICAL HISTORY: Decortication procedure. Left-sided chest tube removal. COMPARISON STUDY: 04/28/2018 FINDINGS: The left-sided chest tube has been removed. There is an 8 mm left apical pneumothorax. Card iac images so contours remain stable. There is left-sided subcutaneous emphysema. Minimal left basila r opacities remain stable and are likely atelectatic.[ IMPRESSION: Interval removal of the left-sided chest tube. 8mm left apical pneumothorax. Electronically signed by: Jeremie Cohen M.D. 04/28/2018 10:35 AM
--- NOTE | 2018-04-28 17:16 | Discharge Summary ---
DISCHARGE DIAGNOSIS: Status post left blunt chest trauma with loculated pleural effusion. HOSPITAL COURSE: This is a 57-year-old male who fell and broke some ribs on his left side a few months ago. The pain resolved but then it came back. He has had multiple orthopedic issues and has pain management issues. He has had some trouble with shortness of breath on exertion and had more pain in his left side. He had a loculated effusion. I thought this may well have been a clotted hemothorax, and I did not think the thoracentesis is going to be helpful. After discussion, we agreed to proceed with a thoracoscopy, drainage of this effusion, and possible decortication. On 04/27/2018, patient underwent an uncomplicated left thoracoscopy. He did indeed have loculated fluid, which we drained off. He also had a trapped left lower lobe. I freed this up and removed pleural peel from the entire left lower lobe and part of the upper lobe. Lung came up very nicely. He tolerated this very well except that he went into atrial fibrillation. He has a history of atrial fibrillation. He is followed by Dr. Carloz Zamora from the cardiology standpoint for his intermittent atrial fibrillation. He has been on Lopressor. He developed atrial fibrillation, his rate was controlled. Watching him overnight in telemetry. I was quite pleased with his x-ray, and he felt well. We removed his chest tube, he felt pretty good. We sent him home with 3 days of Percocet although he gets these from a pain center. He states currently he has none. Incisions are clean. His chest x-ray looks good, and the cytology was negative of the fluid. We will see him back in a week or so with a chest x-ray. Discharge instructions were given. Quite pleased with how well he did.
[2018-04-28] MEDS ORDERED: METOPROLOL SUCC 50MG EXT REL TAB PO SCH (21:00)
== END 2018-04-28 13:20 | disposition home or self-care (01) | DRG 164 ==
LOC: ASU 10:47 → 2S 15:08

== ENCOUNTER 2022-03-08 21:02 | Observation (INO) ==
[2022-03-08] MEDS ORDERED: methylPREDNISolone 40 MG in SYRINGE 0 ML IV ONE (22:01)
[2022-03-08] MEDS ORDERED: diphenhydrAMINE 50 MG/ML VIAL IV ONE (22:01)
[2022-03-08] MEDS ORDERED: SODIUM CHLORIDE 0.9% 1000ML 500 ML IV ONE (22:01)
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
[2022-03-08 22:05] LABS: Basophils # (auto) 0.07 K/uL (0-0.2); Basophils % (auto) 0.7 %; Eosinophils # (auto) 0.22 K/uL (0-0.50); Eosinophils % (auto) 2.4 %; Hematocrit (blood only) 46.5 % (40.1-51.0); Hemoglobin 15.8 g/dl (14.0-18.0); Immature Granulocytes # (auto) 0.09 K/uL (0.00-0.02); Lymphocytes # (auto) 1.39 K/uL (1.2-3.4); Lymphocytes % (auto) 14.9 %; Mean Corpuscular Hemoglobin 30.6 pg (25.0-34.0); Mean Corpuscular Volume 90.1 fL (80.0-100.0); Mean Platelet Volume 10.1 fL (9.4-12.4); Monocytes # (auto) 0.85 K/uL (0.24-0.82); Monocytes % (auto) 9.1 %; Neutrophils # (auto) 6.73 K/uL (1.4-6.5); Neutrophils % (auto) 71.9 %; Platelet Count 239 K/uL (130-400); RDW Standard Deviation 52.9 fL (36.4-46.3); Red Blood Count 5.16 M/uL (4.63-6.08); White Blood Count 9.35 K/ul (4.8-10.8)
[2022-03-08] MEDS ORDERED: THIAMINE HCL 100 MG in SYRINGE 9 ML IV STA (22:07)
[2022-03-08 22:19] LABS: D Dimer 230 ug/L FEU (0-500); Partial Thromboplastin Ratio 1.2; Partial Thromboplastin Time 33.6 Seconds (21.0-31.0)
[2022-03-08 22:32] LABS: Troponin I High Sensitivity 7.3 pg/ml (0-20)
[2022-03-08 22:37] LABS: Albumin Globulin Ratio 1.5 (0.9-2); Albumin Level 3.7 gm/dl (3.4-5.0); BUN Creatinine Ratio 9.2 (10-20); Bilirubin,Total 0.6 mg/dl (0.2-1.0); Calcium 9.1 mg/dl (8.5-10.1); Creatinine Clr Calc Pharmacy 105.8 ml/min; Est GFR (African American) 96.7 ml/min; Est GFR (Non-African American) 83.5 ml/min; Globulin 2.5 gm/dl (2.5-4.0); Total Protein 6.2 gm/dl (6.0-8.3)
[2022-03-08 22:49] LABS: Base Excess VBG 3.7 mEq/L; HCO3 VBG 30 mmol/L; Oxygen Saturation VBG < 60.0 %; PCO2 VBG 49 mmHg (38-50); PO2 VBG 26 mmHg; pH VBG 7.39 (7.36-7.41)
--- NOTE | 2022-03-08 23:36 | XRay Report ---
SINGLE VIEW CHEST CLINICAL HISTORY: Atypical chest pain. FINDINGS: An AP, portable, upright chest radiograph is compared to chest x-ray and chest CT dated . The heart is enlarged. The pulmonary vasculature is noncongested. Chronic interstitial thick ening is similar to previous. There is mild elevation of the right hemidiaphragm with bibasilar scarr ing/atelectasis. No airspace consolidation or large pleural effusion is identified. No pneumothorax i s seen. The skeletal structures are osteopenic. There are healed left-sided rib fractures. Fusion nando dware is noted in the lower cervical spine. IMPRESSION: Cardiomegaly with no acute cardiopulmonary abnormality identified. ACT 112: Negative or not required by law. Electronically signed by: Atilio Pace M.D. 03/08/2022 11:34 PM
[2022-03-09] MEDS ORDERED: OPTIRAY 320 500ml IV ONE (00:33)
[2022-03-09] MEDS ORDERED: diphenhydrAMINE 50 MG/ML VIAL IV STA (01:00)
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
[2022-03-09] MEDS ORDERED: ACETAMINOPHEN 1,000 MG/100 ML VIAL IV STA (02:23)
[2022-03-09] MEDS ORDERED: ONDANSETRON INJ 2 MG/ML 2 ML VIAL IV PRN (03:11)
[2022-03-09] MEDS ORDERED: LORazepam 1 MG TAB PO PRN (03:11)
[2022-03-09] MEDS ORDERED: ALBUT/IPRATROP 3MG/0.5MG NEB 3 ML VIAL NEB PRN (03:39)
[2022-03-09] MEDS ORDERED: ALBUTEROL HFA 8 GM INHALER INH PRN (04:39)
[2022-03-09] MEDS: ALBUT/IPRATROP 3MG/0.5MG NEB 3 ML VIAL NEB SCH ×4 (07:41→19:29)
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
--- NOTE | 2022-03-09 08:00 | CT Scan Report ---
CHEST CTA for PULMONARY ARTERIES CT DOSE: 1808.60 mGycm HISTORY: Atypical chest pain. TECHNIQUE: Multiaxial CT images of the chest were performed following the intravenous administration of contrast to evaluate the pulmonary arteries. Maximal intensity projection images were also obtaine d. A dose lowering technique was utilized adhering to the principles of ALARA. COMPARISON STUDY: Chest CT 02/22/2022. FINDINGS: The heart remains mildly enlarged. No pleural or pericardial effusions. Prior cholecystecto my. No mediastinal or left hilar lymphadenopathy. There are are a few mildly enlarged right hilar lym ph nodes measuring up to 11 mm in short axis diameter. This remains unchanged. Normal esophagus. No e vidence for an aortic dissection or pulmonary embolus. Old, healed left-sided rib fractures are again noted. No pneumothorax. Mild bronchial wall thickening persists. A few tiny pulmonary nodules remain stable. No focal lung consolidations to suggest a pneumonia. IMPRESSION: 1. No evidence for a pulmonary embolus. 2. Mild right hilar lymphadenopathy, unchanged. An additional six-month to one year chest CT follow-u p can be performed to ensure stability. ACT 112: Positive. There are findings on this exam that require communication between the performing entity and the patient following Patient Test Result Information Act ([place] Act 112) guidelines. Electronically signed by: Ayden Gates M.D. 03/09/2022 7:59 AM
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
[2022-03-09] MEDS: ACETAMINOPHEN 500 MG TAB PO SCH ×2 (08:41→13:50)
[2022-03-09] MEDS: APIXABAN 5 MG TABLET PO SCH ×2 (08:41→21:05)
[2022-03-09] MEDS: PANTOprazole 40 MG TAB PO SCH (08:42)
[2022-03-09] MEDS: TAMSULOSIN HCL 0.4 MG CAP PO SCH (08:42)
[2022-03-09] MEDS: LOSARTAN POTASSIUM 25 MG TAB PO SCH (08:42)
[2022-03-09] MEDS: METOPROLOL SUCC 50MG EXT REL TAB PO SCH ×2 (08:42→21:07)
[2022-03-09] MEDS: CYCLOBENZAPRINE HCL 5 MG TAB PO PRN ×2 (08:42→21:08)
[2022-03-09] MEDS: GABAPENTIN 300 MG CAP PO SCH ×3 (08:42→21:05)
[2022-03-09] MEDS: THIAMINE HCL 100 MG TAB PO SCH (08:43)
[2022-03-09] MEDS: UMECLIDINIUM/VILANTEROL 62.5/25MCG 7 PUFFS/INHALER INH SCH (08:44)
[2022-03-09] MEDS: FOLIC ACID 1 MG TAB PO SCH (08:44)
[2022-03-09] MEDS: LIDOCAINE 5% 1 PATCH TD SCH (08:45)
[2022-03-09] MEDS ORDERED: NON-FORMULARY MEDICATION (Tiotropium-Olodaterol [Stiolto Respimat] 2.5-2.5 mcg/actuation m INH SCH (09:00)
--- NOTE | 2022-03-09 11:19 | Electrocardiogram Report ---
Test Reason : Blood Pressure : / mmHG Vent. Rate : 077 BPM Atrial Rate : 340 BPM P-R Int : 000 ms QRS Dur : 104 ms QT Int : 440 ms P-R-T Axes : 000 -10 -02 degrees QTc Int : 497 ms Poor data quality, interpretation may be adversely affected Atrial fibrillation Incomplete right bundle branch block Poor R wave progression, consider anterior PA vs. lead placement vs. LVH Abnormal ECG When compared with ECG of 22-FEB-2022 17:36, QT has lengthened Confirmed by Héctor Love ([id number]) on 03/09/2022 11:19:27 AM Referred By: REFERRED SELF Confirmed By:Héctor Love
--- NOTE | 2022-03-09 11:22 | Electrocardiogram Report ---
Test Reason : Blood Pressure : / mmHG Vent. Rate : 092 BPM Atrial Rate : 078 BPM P-R Int : 000 ms QRS Dur : 104 ms QT Int : 396 ms P-R-T Axes : 000 -09 -13 degrees QTc Int : 489 ms Poor data quality, interpretation may be adversely affected Atrial fibrillation Incomplete right bundle branch block Nonspecific ST and T wave abnormality Abnormal ECG When compared with ECG of 08-MAR-2022 21:10, (unconfirmed) No significant change was found Confirmed by Héctor Love ([id number]) on 03/09/2022 11:21:36 AM Referred By: REFERRED SELF Confirmed By:Héctor Love
--- NOTE | 2022-03-09 11:40 | XCELERA ---
[id number]
[2022-03-09 16:24] LABS: Hematocrit (blood only) 45.1 % (40.1-51.0); Hemoglobin 15.3 g/dl (14.0-18.0); Mean Corpuscular Hemoglobin 30.3 pg (25.0-34.0); Mean Corpuscular Hgb Conc 33.9 g/dL (32.0-36.0); Mean Corpuscular Volume 89.3 fL (80.0-100.0); Mean Platelet Volume 10.1 fL (9.4-12.4); Platelet Count 262 K/uL (130-400); RDW Standard Deviation 52.4 fL (36.4-46.3); Red Blood Count 5.05 M/uL (4.63-6.08); White Blood Count 15.05 K/ul (4.8-10.8)
[2022-03-09 16:41] LABS: BUN Creatinine Ratio 12.8 (10-20); Calcium 9.3 mg/dl (8.5-10.1); Creatinine Clr Calc Pharmacy 134.4 ml/min; Est GFR (African American) 113.7 ml/min; Est GFR (Non-African American) 98.1 ml/min; Potassium 4.2 mmol/L (3.5-5.1)
[2022-03-09 20:14] LABS: Amphetamines+Metham, Urine Neg (Neg); Barbiturates, Urine Neg (Neg); Benzodiazepine, Urine Neg (Neg); Cocaine, Urine Neg (Neg); MDMA (Ecstacy), Urine Neg (Neg); Methadone, Urine Neg (Neg); Opiate, Urine Neg (Neg); Phencyclidine, Urine Neg (Neg)
[2022-03-09] MEDS: ACETAMINOPHEN 325 MG TAB PO SCH (21:04)
[2022-03-09] MEDS ORDERED: oxyCODONE HCL IR 5 MG TAB (IMMEDIATE RELEASE) PO STA (23:10)
[2022-03-10] MEDS: ACETAMINOPHEN 325 MG TAB PO SCH ×3 (02:40→13:52)
[2022-03-10] MEDS: ALBUT/IPRATROP 3MG/0.5MG NEB 3 ML VIAL NEB SCH ×2 (07:11→11:02)
[2022-03-10 07:41] LABS: Hematocrit (blood only) 43.3 % (40.1-51.0); Hemoglobin 14.6 g/dl (14.0-18.0); Mean Corpuscular Hemoglobin 30.7 pg (25.0-34.0); Mean Corpuscular Hgb Conc 33.7 g/dL (32.0-36.0); Mean Platelet Volume 10.2 fL (9.4-12.4); Platelet Count 228 K/uL (130-400); RDW Coefficient of Variation 16.5 % (11.5-14.5); RDW Standard Deviation 55.6 fL (36.4-46.3); Red Blood Count 4.76 M/uL (4.63-6.08); White Blood Count 13.72 K/ul (4.8-10.8)
[2022-03-10 08:10] LABS: BUN Creatinine Ratio 13.5 (10-20); C Reactive Protein 1.04 mg/dl (0-0.5); Calcium 8.8 mg/dl (8.5-10.1); Creatinine Clr Calc Pharmacy 141.7 ml/min; Est GFR (African American) 116.2 ml/min; Est GFR (Non-African American) 100.3 ml/min; Potassium 3.8 mmol/L (3.5-5.1)
[2022-03-10] MEDS: METOPROLOL SUCC 50MG EXT REL TAB PO SCH (09:42)
[2022-03-10] MEDS: FOLIC ACID 1 MG TAB PO SCH (09:42)
[2022-03-10] MEDS: LOSARTAN POTASSIUM 25 MG TAB PO SCH (09:42)
[2022-03-10] MEDS: TAMSULOSIN HCL 0.4 MG CAP PO SCH (09:42)
[2022-03-10] MEDS: GABAPENTIN 300 MG CAP PO SCH ×2 (09:42→13:52)
[2022-03-10] MEDS: THIAMINE HCL 100 MG TAB PO SCH (09:42)
[2022-03-10] MEDS: PANTOprazole 40 MG TAB PO SCH (09:43)
[2022-03-10] MEDS: LIDOCAINE 5% 1 PATCH TD SCH (09:43)
[2022-03-10] MEDS: APIXABAN 5 MG TABLET PO SCH (09:43)
[2022-03-10] MEDS: UMECLIDINIUM/VILANTEROL 62.5/25MCG 7 PUFFS/INHALER INH SCH (09:44)
--- NOTE | 2022-03-10 11:05 | Magnetic Resonance Report ---
MR brain wo con CLINICAL HISTORY: convulsive syncope TECHNIQUE: Multiplanar and multisequence MR images of the brain were obtained without intravenous con trast. Comparison: Comparison is made to MRI brain 09/06/[address] head 03/09/2022 FINDINGS: No abnormal restricted diffusion is identified. Increased signal in the upper cervical cord on series 4 image 3 is favored to be artifactual. Foci of T2 and FLAIR hyperintensity are noted in the paraven tricular areas consistent with chronic small vessel ischemic disease. Ex vacuo ventriculomegaly and s ulcal enlargement is noted compatible with diffuse encephalomalacia. No mass is seen. There is no mas s effect or midline shift. There is no evidence of acute intraparenchymal hemorrhage. No extra axial fluid collections are seen. The corpus callosum, pituitary gland, and cerebellar tonsils appear gross ly unremarkable. Flow voids of the major intracranial arterial vessels are identified. The imaged portions of the para nasal sinuses, mastoid air cells, and orbits are unremarkable. IMPRESSION: No acute abnormalities. ACT 112: Negative or not required by law. Electronically signed by: Aj Rodriguez M.D. 03/10/2022 11:04 AM
--- NOTE | 2022-03-10 16:57 | Electrocardiogram Report ---
Test Reason : Blood Pressure : / mmHG Vent. Rate : 084 BPM Atrial Rate : 111 BPM P-R Int : 000 ms QRS Dur : 104 ms QT Int : 378 ms P-R-T Axes : 000 -07 021 degrees QTc Int : 446 ms Atrial fibrillation Incomplete right bundle branch block Nonspecific ST and T wave abnormality Abnormal ECG When compared with ECG of 09-MAR-2022 01:07, No significant change was found Confirmed by Héctor Love ([id number]) on 03/10/2022 4:56:48 PM Referred By: REFERRED SELF Confirmed By:Héctor Love
--- NOTE | 2022-03-10 17:08 | Electrocardiogram Report ---
Test Reason : Blood Pressure : / mmHG Vent. Rate : 090 BPM Atrial Rate : 375 BPM P-R Int : 000 ms QRS Dur : 112 ms QT Int : 366 ms P-R-T Axes : 000 -06 -45 degrees QTc Int : 447 ms Atrial fibrillation Incomplete right bundle branch block Nonspecific ST and T wave abnormality Abnormal ECG When compared with ECG of 09-MAR-2022 22:53, (unconfirmed) No significant change was found Confirmed by Héctor Love ([id number]) on 03/10/2022 5:08:04 PM Referred By: REFERRED SELF Confirmed By:Héctor Love
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
== END 2022-03-10 17:46 | disposition home or self-care (01) ==
LOC: ED 21:02 → 4W 21:02 → SUATTDRO 03-09 02:04 → 4W 03-09 03:02

== ENCOUNTER 2023-11-23 05:58 | Inpatient (IN) ==
--- OUTSIDE RECORDS SUMMARY | 2023-11-23 06:02 | External Medical Summary | Continuity of Care Document ---
Author Name Unknown Organization [address] Address [address] [place] [id number] Care Team Providers Care Sfdc Developer Name Role Phone Rosita Hidalgo Primary Care Physician [phone] [facility]counter [facility] [id number] Date(s): 08/05/23 - 08/05/[address] [address] [phone] Encounter Diagnosis DVT of deep femoral vein(Discharge Diagnosis) - 08/05/23 HYPERTENSION(Discharge Diagnosis) - 08/05/23 Afib(Discharge Diagnosis) - 08/05/23 COPD mixed type(Discharge Diagnosis) - 08/05/23 Moderate alcohol use disorder(Discharge Diagnosis) - 08/05/23 Tobacco user(Discharge Diagnosis) - 08/05/23 Prediabetes(Discharge Diagnosis) - 08/05/23 GERD (gastroesophageal reflux disease)(Discharge Diagnosis) - 08/05/23 Anticoagulated(Discharge Diagnosis) - 08/05/23 HLD (hyperlipidemia)(Discharge Diagnosis) - 08/05/23 Discharge Disposition: Home or Self Care Attending Physician: ELEAZAR Hidalgo Tara Allergies, Adverse Reactions, Alerts Substance Reaction Severity Status IVP dye welts, itching hives Active Assessment and Plan Extracted from: Title:follow up Author:ELEAZAR Hidalgo Tara Date:08/05/23 1.DVT of deep femoral vein 2.Anticoagulated Acute/Chronic: chronic Goal:Resolution/ control Status:stable/controlled Data: records/pt report Plan:On anticoag intermediate due to genetic predisposition. No abnl bleeding. Will check a cbc 3.Afib Acute/Chronic: chronic Goal:Resolution/ control Status:stable/controlled Data: records/pt report Plan: Contd on present regimen. He needs to follow up with cards. 4.COPD mixed type Acute/Chronic: chronic Goal:Resolution/ control Status:stable/controlled Data: records/pt report Plan: Doing well. Breathing is stable. 5.Moderate alcohol use disorder Acute/Chronic: chronic Goal:Resolution/ control Status:stable/controlled Data: records/pt report Plan:Contd to drinks. 6.Prediabetes Acute/Chronic: chronic Goal:Resolution/ control Status:stable/controlled Data: records/pt report Plan:Will check hgba1c. 7.Tobacco user Acute/Chronic: chronic Goal:Resolution/ control Status:stable/controlled Data: records/pt report Plan: Contd to smoke. He does want to quit. 8.GERD (gastroesophageal reflux disease) Will: chronic Goal:Resolution/ control Status:stable/controlled Data: records/pt report Plan: Well controlled. Contd on present regimen. 9.HYPERTENSION Acute/Chronic: chronic Goal:Resolution/ control Status:stable/controlled Data: records/pt report Plan: BP well controlled. 10.HLD (hyperlipidemia) Acute/Chronic: chronic Goal:Resolution/ control Status:stable/controlled Data: records/pt report Plan:Will check lipid panel. Follow up in 3 mo. He was asking if he was due for egd or colo. After reviewing chart and notes he does not need follow up EGD. His colo is due on 2029. time spent reviewing chart, face to face visit, ordersand documentation: 44 min Immunizations Given and Recorded Vaccine Date Status Refusal Reason influenza virus vaccine, inactivated 01/08/22 Give n influenza virus vaccine, inactivated 01/02/21 Give n influenza virus vaccine, inactivated 04/06/19 Jose rded influenza virus vaccine, inactivated 12/07/17 Jose rded influenza virus vaccine, inactivated 1 11/23/17 Re corded influenza virus vaccine, inactivated 2 01/19/17 Re corded influenza virus vaccine, inactivated 01/14/16 Jose rded influenza virus vaccine, inactivated 3 01/09/16 Re corded influenza virus vaccine, inactivated 4 01/23/15 Re corded influenza virus vaccine, inactivated 5 11/09/13 Re corded influenza virus vaccine, inactivated 03/22/12 Give n SARS-CoV-2 (COVID-19) mRNA BNT-162b2 vax 6 11/20/20 Recorded SARS-CoV-2 (COVID-19) mRNA BNT-162b2 vax 7 10/30/20 Recorded zoster vaccine, inactivated 8 01/07/20 Recorded zoster vaccine, inactivated 9 10/03/19 Recorded zoster vaccine, inactivated 04/06/19 Recorded tetanus/diphtheria/pertuss, acel (Tdap) 12/07/17 R ecorded tetanus/diphtheria/pertuss, acel (Tdap) 10 11/23/17 Recorded tetanus/diphtheria/pertuss, acel (Tdap) 01/27/08 R ecorded pneumococcal 23-valent vaccine 11 11/23/17 Recorde d 1Result Comment: 2018-04-29: Historical information-source unspecified 2Result Comment: 2018-04-29: Historical information-source unspecified 3Result Comment: 2018-04-29: Historical information-source unspecified 4Result Comment: 2018-04-29: Historical information-source unspecified 5Result Comment: 2018-04-29: Historical information-source unspecified 6Result Comment: 2021-01-02: Historical information-source unspecified 7Result Comment: 2021-01-02: Historical information-source unspecified 8Result Comment: 2020-08-22: Historical information-source unspecified 9Result Comment: 2020-08-22: Historical information-source unspecified 10Result Comment: 2018-04-29: Historical information-source unspecified 11Result Comment: 2020-08-22: Historical information-source unspecified Medications acetaminophen 500 mg oral tablet Start: 02/13/23 13:49:00 EST, 2 tab, PO, q8h Start Date: 02/13/23 Status: Ordered albuterol CFC free 90 mcg/inh MDI Start: 01/14/23 10:37:00 EDT, 2 puff, inhaled, qid, PRN: as needed for wheezing Start Date: 01/14/23 Status: Ordered calcium with vitamin D 500 mg Start: 10/09/16 13:28:00, 1 tab, PO, bid Start Date: 10/09/16 Status: Ordered digoxin 125 mcg (0.125 mg) oral tablet Start: 02/02/23 9:20:00 EDT, 1 tab, PO, Daily Start Date: 02/02/23 Status: Ordered Eliquis 5 mg oral tablet Start: 10/13/22 8:32:00 EDT, See Instructions, Disp# 60 tab, Refills: 10, take 1 tablet by mouth twice a day for 30 DAYS, Pharmacy: [facility] #[id number] Start Date: 10/13/22 Status: Ordered Flomax 0.4 mg oral capsule Start: 08/06/23 17:58:00 EDT, 1 cap, PO, Daily, Disp# 30 cap, Refills: 11, Pharmacy: [facility] #[id number] Start Date: 08/06/23 Status: Ordered fluticasone CFC free 44 mcg/inh MDI Start: 08/06/23 17:58:00 EDT, 2 puff, inhaled, bid, Disp# 1 each, Refills: 3, rinse mouth and throat after use, Pharmacy: [facility] #[id number] Start Date: 08/06/23 Status: Ordered furosemide 20 mg oral tablet Start: 08/06/23 17:58:00 EDT, 1 tab, PO, Daily, Disp# 30 tab, Refills: 11, Pharmacy: [facility] #[id number] Start Date: 08/06/23 Status: Ordered gabapentin 300 mg oral capsule Start: 07/20/23 8:00:00 EDT, 1 cap, PO, tid, Disp# 90 cap, Refills: 0, Pharmacy: [facility] #[id number] Start Date: 07/20/23 Status: Ordered losartan 25 mg oral tablet Start: 01/07/23 16:03:00 EDT, 1 tab, PO, Daily, Disp# 90 tab, Refills: 2, Pharmacy: [facility] #[id number] Start Date: 01/07/23 Status: Ordered magnesium oxide 400 mg (241.3 mg elemental magnesium) oral tablet Start: 09/10/22 11:50:00 EDT, 1 tab, PO, Daily, Disp# 30 tab, Refills: 6, [facility]acy: [facility] #[id number] Start Date: 09/10/22 Stop Date: 04/08/23 Status: Ordered meclizine 12.5 mg oral tablet Start: 08/22/22 11:21:00 EDT, 1 tab, PO, tid, Disp# 30 tab, PRN: as needed for dizziness, Pharmacy:[facility] #[id number] Start Date: 08/22/22 Status: Ordered Metoprolol Succinate ER 50 mg oral tablet, extended release Start: 11/13/23 9:25:00 EST, 1 tab, PO, Daily, Disp# 90 tab, X 90 day, Refills: 3, Stop: 02/11/24 9:25:00 EST, Pharmacy: [facility] #[id number] Start Date: 02/16/23 Stop Date: 02/11/24 Status: Ordered multivitamin Start: 04/22/10 13:31:31, See Instructions, Refills: 0, One Daily No Dosage Noted, current medication from another provider Start Date: 04/22/10 Status: Ordered omeprazole 40 mg oral delayed release capsule Start: 08/06/23 17:58:00 EDT, See Instructions, Disp# 60 cap, Refills: 11, take 1 capsule by mouth twice a day, Pharmacy: [facility] #[id number] Start Date: 08/06/23 Status: Ordered riboflavin 400 mg oral capsule Start: 09/10/22 11:49:00 EDT, 1 cap, PO, Daily, Disp# 30 cap, Refills: 6, [facility]acy: [facility] #[id number] Start Date: 09/10/22 Stop Date: 04/08/23 Status: Ordered SUMAtriptan 100 mg oral tablet Start: 12/15/22 16:42:00 EDT, See Instructions, Disp# 9 tab, Refills: 5, take 1 tablet by mouth AT ONSET OF HEADACHE may repeat in 2 hours IF headache PERSISTS maximum daily dose of 2 tablets ( 200 milligrams ) every 24 hours, Pharmacy: [facility] #[id number] Start Date: 12/15/22 Status: Ordered traZODone 50 mg oral tablet Start: 11/25/22 18:50:00 EDT, See Instructions, Disp# 60 tab, Refills: 5, take 1 to 2 tablets by mouth at bedtime, Pharmacy: [facility] #[id number] Start Date: 11/25/22 Status: Ordered Vitamin B12 Start: 04/15/22 10:45:00 EST, 1 tab, PO, Daily Start Date: 04/15/22 Status: Ordered Mental Status 08/05/23 Barriers to Learning one year None evide nt Mandatory Health Literacy Documentation Yes Health Literacy Communication Barriers N ever Primary Language [place] Problem List Condition Confirmation Course Effective Dates Status H ealth Status Informant Moderate alcohol use disorder Confirmed Active Afib Confirmed Active Bicuspid aortic valve Confirmed Active Cervical spondylosis Confirmed Active COPD mixed type Confirmed Active Chronic pain Confirmed Active Collagenous colitis Confirmed Active DDD (degenerative disc disease), cervical 1 Confirmed Active DVT of deep femoral vein Confirmed Active DDD (degenerative disc disease), lumbar Confirmed Active Depression Confirmed Active DJD, MULTIPLE JOINTS 2 Confirmed 04/22/10 Active GERD (gastroesophageal reflux disease) Confirmed Active HYPERTENSION Confirmed 06/17/10 Active IMPOTENCE OF ORGANIC ORIGIN Confirmed 04/22/10 Active Bilateral low back pain Confirmed Active Lumbosacral radiculopathy Confirmed Active Migraine Confirmed Active Nicotine dependence Confirmed Active Obesity Confirmed Active Osteoarthritis of left foot Confirmed Active Prediabetes Confirmed Active Severe sleep apnea. Confirmed Active Tobacco user Confirmed Active 1with spinal stenosis 2back, neck, ankle pain Diagnosis Diagnosis Type Effective Dates Health Status Clinical Service Informant HYPERTENSION Discharge Diagnosis 08/05/23 DVT of deep femoral vein Discharge Diagnosis 08/05/23 Afib Discharge Diagnosis 08/05/23 COPD mixed type Discharge Diagnosis 08/05/23 Moderate alcohol use disorder Discharge Diagnosis 08/05/23 Tobacco user Discharge Diagnosis 08/05/23 Prediabetes Discharge Diagnosis 08/05/23 GERD (gastroesophageal reflux disease) Discharge Diagnosis 08/05/23 Anticoagulated Discharge Diagnosis 08/05/23 HLD (hyperlipidemia) Discharge Diagnosis 08/05/23 Non-Specified Procedures Procedure Date Related Diagnosis Body Site Status Chest X-ray 1 09/19/22 Completed US abdominal scan RUQ 2 09/03/[address] angiography of chest with contrast 3 03/09/22 Completed Chest X-ray 4 03/08/22 Completed Computed tomography (CT) of abdomen and pelvis with contrast 5 03/08/[address] of cervical spine 6 03/08/[address] of head 7 03/08/22 Completed Chest X-ray 8 02/22/[address] of abdomen and pelvis 9 02/22/[address] of cervical spine 10 02/22/[address] of chest 11 02/22/[address] of head 12 02/22/22 Completed Chest X-ray 13 01/14/22 Completed Full sleep study 14 12/05/[address] of cervical spine 15 09/02/[address] of chest 16 09/02/21 Completed Venous doppler ultrasonograp hy bilateral lower extremities 17 06/06/21 C ompleted Cystoscopy 04/30/[address] bladder 18 04/09/[address] 19 02/14/[address] of chest with contrast 20 02/14/21 Completed MRI of brain 21 09/06/[address] of lungs screening low dose 22 03/12/20 Completed Colonoscopy 23, 24 12/07/19 Comple crystal Injection of facet joint 25 10/25/19 Completed X-ray of cervical spine 26 04/01/19 Completed Lung procedure 27 04/27/18 Complet ed Thoracoscopy 28 04/27/18 Completed type and screen 29 04/20/18 Comple crystal Chest X-ray 30 04/07/18 Completed X-ray of right ankle 31 10/26/17 C ompleted Chest angiography for PE 32 09/01/17 Completed Chest x-ray 33 09/01/17 Completed Shoulder X-ray 34 08/06/17 Complet ed Surgery rotator cuff (right shoulder) 35 08/06/17 Completed Fistula 36 08/05/17 Completed Neck surgery 11/27/16 Completed MRI of cervical spine 37 06/23/16 Completed Greater and lesser occiptal nerve blocks, 38 05/30/16 Completed MRI of brain and brain stem 39 05/21/16 Completed X-ray of left knee 40 02/06/16 Com pleted X-ray of left foot 41 01/09/16 Com pleted Knee X-ray bilateral 42 11/30/15 C ompleted Cervical spine X-ray 43 11/17/15 C ompleted Colonoscopy 44, 45, 46 06/04/15 Co mpleted Upper GI endoscopy 47, 48 06/04/[address] of abdomen and pelvis wit h contrast 49, 50 06/03/15 Completed CXR - Chest X-ray 51 06/02/15 Comp leted ECG 52 06/02/15 Completed Total knee replacement - right 53, 54 05/02/15 Completed CXR - Chest X-ray 55 04/09/15 Comp leted Bilateral Knee replacement ( 2014 & 2015) 2016 Completed Right knee XRAY 56 01/29/15 Comple crystal MRI of cervical spine 57 10/19/14 Completed Cervical Spine XRAY 58 04/18/14 Co mpleted Knee X-ray 59 04/18/14 Completed Right Knee Surgery, multiple 2014 Completed wound vac L knee 2015 Complete d Colonoscopy 60 11/04/13 Completed Upper GI endoscopy 61 11/04/13 Com pleted L knee surgery - 09/28/2012 09/28/12 Completed back surgery 07/24/11 Completed EGD 62, 63, 64 11/29/08 Completed Colonoscopy 02/2007 Completed anterior cervical disc fusion 04/06/04 Completed Colonoscopy 65, 66 09/11/03 Comple crystal Left Hernia Repair 2003 Comple crystal cholecystectomy 1999 Completed right elbow surgery 1999 Compl eted HTO - High tibial osteotomy, Left 67 1996 Completed Appendectomy 1975 Completed L sacrioliac joint injection Completed Repair of elbow, right side surgery Completed X-ray of bone of ankle 68 Completed 1No acute cardiopulmonary findings. 21. Hepatic steatosis 2. Prior cholecystectomy 3. A 2 cm right renal cyst [address] [place] [address] Impression: 1. No evidence for a pulmonary embolus 2. Mild right hilar lymphadenopathy, unchanged. An additional 6 month to one year chest CT follow-up can be performed to ensure stability 4cardiomegaly with no acute cardiopulmonary abnormality identified 5no significant abnormality identified within the abdomen or pelvis 6no fractures within the cervical spine 7no acute intracranial abnormality 8No pneumothorax Apparent right infrahilar opacity. This probably reflects atelectasis but can be assessed on chest CT 9No acute traumatic findings within the abdomen or pelvis Exam mildly compromised by motion artifact 10No acute cervical spine fracture or subluxation Stable postoperative findings within the spine status post C3-C7 discectomy and posterior fusion. 11No acute traumatic findings within the chest 12No acute intracranial findings No acute calvarial fracture 13Impression: No significant change compared to the prior study. No acute process. 14severe sleep apnea. recommended bipap 15no evidence of acute bony injury 16atelectasis is seen without airspace opacity or other acute abnormality 17there is a deep venous thrombus in the mid right femoral vein extending to the popliteal, posteriortibial, and peroneal veins. the remainder of the right lower extremity as well as the left lower extremity is normal. 18Impression: 1. No renal or ureteral stones. No hydronephrosis. 2. No suspicious filling defects seen within the opacified bilateral renal collecting systems, ureters, or bladder. 3. Mild bladder wall thickening with trabeculation. This is likely chronic. 4. A 1.5 cm hypodense lesion within the upper pole the right kidney. This does not clearly demonstrate enhancement and therefore favors a cyst. However, there is punctate focus of increased density/enhancement within this lesion anteriorly as described above. Therefore, follow-up six-month to one year dedicated renal CT or MRI is recommended to ensure stability and to exclude the less likely possibility of a cystic renal mass. 5. Additional findings as described above. 19Thyroid: Imaged portions of the thyroid gland are normal in size and attenuation. Thoracic aorta: There is mild atherosclerotic calcification of the thoracic aorta, with is normal in caliber and demonstrates standard 3-vessel arch anatomy. No dissection is seen. Pulmonary vasculature: The pulmonary trunk is normal in caliber. There are no filling defects identified in the central pulmonary vessels to indicate pulmonary embolus. Note that this examination wasnot protocoled for evaluation of the pulmonary arteries. Heart: The heart is normal in size and without pericardial effusion. There are coronary artery calcifications. Lungs and pleural spaces: Mild emphysematous change is suggested at the apices. There is no airspace consolidation typical for pneumonia or pleural effusion. Mild subpleural reticulation is seen throughout both lungs. The trachea and central airways are clear. There is mild diffuse peribronchial thickening. A 2 mm pleural-based nodule is seen in the right upper lobe on image #79 and a 3 mm pleural-based nodule is seen in the right upper lobe on image #162. These are unchanged from 2018 and of doubtful significance. Mediastinum: There is no mediastinal lymphadenopathy. Christiane: Clear. Axillae: There is no axillary lymphadenopathy. Upper abdomen: Cholecystectomy clips are noted. Partially visualized upper abdominal viscera is otherwise grossly unremarkable. Skeletal structures: No lytic or blastic bony lesions are seen. Postoperative change is noted in the lower cervical spine. There are chronic nonunited left- sided rib fractures. IMPRESSION: 1. Mild emphysema. 2. No airspace consolidation or pleural effusion is identified. 3. Mild diffuse peribronchial thickening suggests bronchitis/reactive airway disease. Clinical correlation will be required. 4. Coronary artery calcifications. 5. Additional findings as above. 201. mild emphysema 2. no airspace consolidation or pleural effusion is identified 3. mild diffuse peribronchial thickening suggests bronchitis/reactive airway disease. clinical correlation will be required 4. coronary artery calcifications 5. additional findings as above (within the report) 21no intracranial abnormality is identified 22Impression: A few scattered subcentimeter pulmonary nodules as described above with the largest in the right upper lobe measuring 4 mm. These remain stable compared to the prior studies. No new or suspicious pulmonary nodules identified. Old left sided rib fractures are again noted. Overall lung RADS category: 2 benign appearance or behavior-Nodules with a very low likelihood ob becoming a clinically active cancer due to size or lack of growth. Continue annual screening. 23the examined portion of the ileum was normal. The entrie eamined colon is normal. Biopsied. Non-bleeding internal hemorrhoids. 24Collagenous colitis...Repeat in 10 years. 25bilateral C2-C3 26IMPRESSION: 1. Multilevel degenerative change. 2. Post surgical changes of multilevel cervical discectomies and fusion with posterior hardware. 27Pleural fluid, Left: Scattered benign mesothelial cells and small lymphocytes Negative for malignancy 28Left thoracoscopy with limited decortication. 29O+ 30Impression: 1 There is a small left pleural effusion with left basilar opacities. This is new from previous 2. the right lung appears clear 311. No acute fractures 2. Soft tissue swelling 3. Corticated ossicles adjacent to the medial and lateral malleolus. These are felt to be old. 4. No destructive lesions are visualized. 32Impression: No evidence for pulmonary embolus. Lungs are clear. several small mediastinal and/or hilar nodes stable to slightly increased in prominence from the prior study Mild degenerative disc change throughout the entire thoracic region. 33Stable cardiomegaly and mild central pulmonary vascular congestion without overt edema 34Anatomic alignment post right shoulder arthroplasty. 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 There is a high-grade stenosis at C3-C4. There is mild myelomalacia of the cervical cord at thislevel, likely related to high grade stenosis. 2. Multilevel cervical spondylosis at additional levels as detailed above. See discussion for detailed level by level analysis. 3 There are postoperative changes from C5 to C7 anterior spinal fusion. 38Greater and lesser occiptal nerve blocks, auriculotemporal, supraorbital and supratrochlear nerve blocks procedure note. 39Unremarkable MRI of the brain. 40Expected findings following total left knee arthroplasty. 41No acute fracture or dislocation of left foot. No evidence for a stress fracture Mild arthritis of the left first metatarsophalangeal joint 42Impression: No acute bony abnormality is seen in the right knee. An arthroplasty is in near-anatomic alignment and additional postoperative changes are detailed above. Prepatellar soft tissue edema and joint effusion are noted in the right knee. Arthritic and postoperative changes are noted in the left knee on the frontal view. 43No acute fractures, postsurgical changes. Progressive degnerative changes at the C4-5 level. 44The examined portion of the ileum was normal Diverticulosis in the sigmoid colon Two 3 to 4mm polyps in the rectum. Resected and retrieved Bleeding internal hemorrhoids The examination was otherwise normal on direct and retroflexion views 45Repeat in 5 years. 46path polyp hyperplastic 47Esophagogastric landmarks identified Z-line irregular. Biopsied Normal antrum. Biopsied Normal 2nd part of the duodenum. Biopsied The exam was otherwise normal 48path duod neg, antrum mild chronic gastritis, GE jxn inflammation. 49full report reviewed. Also mild fatty liver noted. 501) No evidence of bowel obstruction. No evidence of free air 2) Stable subcentimeter left adrenal gland nodule 3) Surgically absent gall bladder 4) No evidence of acute appendicitis 5) Diverticulosis. No evidence of acute perideverticular inflammatory change 6) Mild rectal sigmoid wall thickening versus a nondistended segment 7) No evidence of abscess 51No active disease in the chest. 52Rate 86 Rhythm: atrial fibrillation Findings: RBBB (incomplete), other (non specific ST T wave changes, controlled ventricular rate) Comparison ECG date:04/09/2015 Change: the rate is slower and the ST T wave changes are not present when compared to 04/09/2015. 53Biopsy Right knee bone and tissue: degenerative joint disease(Osteoarthritis). Synovium/soft tissue: Mild nonspecific chronic synovitis. Touch preparation for crystal analysis:birefringent crystals present consistent with calcium pyrophosphate crystals(pseudogout). 54Cemented right total knee replacement with removal of hardware. 55Negative chest 56Postsurgical changes of a proximal tibial osteotomy and anterior cruciate ligament repair Severe osteoarthritic changes Joint effusion 571) there are postoperative changes from C5-C7 spinal fusion. No acute bony abnormality is seen 2) Posterior disc osteophyte compleses at C3-C4 and C4-C5 contribute to acquired compromise of the central canal. This is greatest at C3-C4. 58Moderate degnerative change throughout the entire cervical region with mild osteophytic narrowing of the neural foramina bilaterally. Findings consistent with a stable anterior fusion from C5-C7 59Left knee--Considerable degenerative change of the left knee primarily involoving the medial joint compartment as well as patellofemoral joint. Interval hardware removal of the proximal left tibia. 60non bleeding internal hemerrhoids, few diverticula in sigmoid colon 61areas of ectopic mucosa at the cricopharyngeus, otherwise without abnormality 91Dzniii-Rjwehgbno-Vplsmixafxx chronic inflammation. Immunohistochemical stain for H Pylori positive. 63Possible short segment Koroma's Gastritis-erosions Normal Duodenum 64Biopsy- Stomach- Chronic active Gastritis, moderate. No intestinal metaplasia seen. 13Vrvtv0.7cm removed Internal hemorrhoid Diverticulosis 66Biopsy-Hyperplastic Polyp. 67left 68RIGHT ANKLE Impression: 1. No acute fractures. 2. Soft tissue swelling 3. Corticated ossicles adjacent to the medial and lateral malleolus. These are felt to be old. 4. No destructive lesions are visualized. Vital Signs Most recent to oldest [Reference Range]: 1 Height 182 cm (08/05/23 3:46 PM) Patient Weight 122 kg (08/05/23 3:46 PM) Body Mass Index 36.83 kg/m2 (08/05/23 3:46 PM) Heart Rate 90 bpm (08/05/23 3:46 PM) Respiratory Rate 20 br/min (08/05/23 3:46 PM) Blood Pressure 120/76mmHg (08/05/23 3:46 PM) Cuff Pulse Pressure 44 mmHg (08/05/23 3:46 PM) Social History Social History Type Response Tobacco Current every day sm oker, Cigarettes, .5 per day. 1, 2 Smoking Status Current some day hea vy smoker Sex Male 1Plans to quit 02/05/16 21 pack every 2 days since age 25 Implantable Device List Procedure Provider Procedure Date Device Type Site Unknown Unknown 02/12/23 Unknown Unknown Device Identifier Serial Number Lot or Batch Number Manufacturing Date Expiration Date Distinct Identification Code MRI Safety Implantable Status Assigning Authority Unknown Unknown [id number] Unknown 10/03/25 Unknown Unknown Active Unknown Unknown Unknown n/a Unknown 05/29/25 Unknown Unknown Active Unkn own Unknown Unknown n/a Unknown 05/31/25 Unknown Unknown Active Unkn own Unknown Unknown n/a Unknown Unknown Unknown Unknown Active Unkn own Unknown Unknown n/a Unknown Unknown Unknown Unknown Active Unkn own Unknown Unknown n/a Unknown Unknown Unknown Unknown Active Unkn own Unknown Unknown n/a Unknown 02/12/23 Unknown Unknown Active Unkn own FCM Outpt Note * ELEAZAR Hidalgo Tara: PERFORM Event Display: FCM Outpt Note Authored Date: [id number] Chief Complaint HMV. Headaches and neck pain around 3pm. Soreness of legs and buttocks since back surgery History of Present Illness New puppy ita pennr Akil. Having neck pain in the afternoon at times. He is going to contact Dr. Wood's office. He contd to have some pain in buttocks from lumbar surgery. No numbness/tingling, bowel or bladder dysfunctionor saddle anesthesia. He reports his breathing is good. No CP. The warmer weather does cause some SOB. No worsening. Smoking approx 10 day. Sometimes less. Review of Systems Constitutional: No fever, chills, sweats Pulmonary: No shortness of breath, dyspnea with exertion, cough, hemoptysis, wheezing, chest pain. Cardiovascular: No chest pain, palpitations, syncope, edema, cyanosis, claudication, orthopnea. GI: No nausea, vomiting, diarrhea, melena, hematochezia, change in appetite, abdominal pain, changein bowel habits or stools Musculoskeletal:as per HPI Neurologic: No headache, lightheadedness, dizziness, Psychiatric: No depression, Dermatologic: No rash, new/growing/changing skin lesions Endocrine: No weight change, heat or cold intolerance, tremor, insomnia, polyuria, polydipsia, polyphagia, abnormal hair growth, change in nails Physical Exam Vitals & Measurements HR:90(Monitored) RR:20 BP:120/76 SpO2:97% HT:182cm WT:122.000kg(Dosing) WT:122kg BMI:36.83 PHQ2 Data(Data Documented on:08/05/2023 15:46) Emotional health assessment NEGATIVE head- normocephalic eyes- PERRLA , conjunctiva clear, sclera white, anicteric, neck-no lymphadenopathy, masses, or thyromegaly, +carotid pulses, no bruits, trachea midline Pulmonary- chest expansion symmetric, CTA (clear to auscultation), eupnea, no adventitious sounds (rales, crackles, wheezes) CV (cardiovascular)- RRR no m/r/g (systolic ejection murmur, rubs, gallops), good peripheral perfusion extremitiesNo edema or erythema. skin-good turgor w/o lesions, redness, cyanosis, edema nails- no clubbing or deformities w good cap refill Neuro:Alert, Oriented Psy:no homicidal or suicidal ideations. 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 No abnl bleeding. Will check a cbc 3.Afib Acute/Chronic: chronic Goal:Resolution/ control Status:stable/controlled Data: records/pt report Plan:Contd on present regimen. He needs to follow up with cards. 4.COPD mixed type Acute/Chronic: chronic Goal:Resolution/ control Status:stable/controlled Data: records/pt report Plan:Doing well. Breathing is stable. 5.Moderate alcohol use disorder Acute/Chronic: chronic Goal:Resolution/ control Status:stable/controlled Data: records/pt report Plan:Contd to drinks. 6.Prediabetes Acute/Chronic: chronic Goal:Resolution/ control Status:stable/controlled Data: records/pt report Plan:Will check hgba1c. 7.Tobacco user Acute/Chronic: chronic Goal:Resolution/ control Status:stable/controlled Data: records/pt report Plan:Contd to smoke. He does want to quit. 8.GERD (gastroesophageal reflux disease) Will: chronic Goal:Resolution/ control Status:stable/controlled Data: records/pt report Plan:Well controlled. Contd on present regimen. 9.HYPERTENSION Acute/Chronic: chronic Goal:Resolution/ control Status:stable/controlled Data: records/pt report Plan:BP well controlled. 10.HLD (hyperlipidemia) Acute/Chronic: chronic Goal:Resolution/ control Status:stable/controlled Data: records/pt report Plan:Will check lipid panel. Follow up in 3 mo. He was asking if he was due for egd or colo. After reviewing chart and notes he does not need follow up EGD. His colo is due on 2029. time spent reviewing chart, face to face visit, ordersand documentation: 44 min Problem List/Past Medical History Ongoing Afib Bicuspid aortic valve Bilateral low back pain Cervical spondylosis Chronic pain Collagenous colitis COPD mixed type DDD (degenerative disc disease), cervical DDD (degenerative disc disease), lumbar Depression DJD, MULTIPLE JOINTS DVT of deep femoral vein GERD (gastroesophageal reflux disease) HYPERTENSION IMPOTENCE OF ORGANIC ORIGIN Lumbosacral radiculopathy Migraine Moderate alcohol use disorder Nicotine dependence Obesity Osteoarthritis of left foot Prediabetes Severe sleep apnea. 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 pylori test Preop examination Right hip pain S/P total knee arthroplasty Sacroiliac joint inflamed TOBACCO USE DISORDER Tobacco user Tobacco user Traumatic wound dehiscence Procedure/Surgical History Chest X-ray| Service Date: 09/19/2022US abdominal scan RUQ| Service Date: 09/03/2022T angiography of chest with contrast| Service Date: 03/09/2022T of head| Service Date: 03/08/2022T of cervical spine| Service Date: 03/08/2022omputed tomography (CT) of abdomen and pelvis with c ontrast| Service Date: 03/08/2022hest X-ray| Service Date: 03/08/2022T of abdomen and pelvis| Service Date: 02/22/2022T of chest| Service Date: 02/22/2022T of head| Service Date: 02/22/2022T of cervical spine| Service Date: 02/22/2022hest X-ray| Service Date: 02/22/2022t X-ray| Service Date: 01/14/2022Full sleep study| Service Date: 12/05/2021T of cervical spine| Service Date: 09/02/2021T of chest| Service Date: 09/02/2021Venous doppler ultrasonography bilateral lower extremities| Service Date: 06/06/2021ystoscopy| Service Date: 04/30/2021Tbladder| Service Date: 04/09/2021T of chest with contrast| Service Date: 02/14/2021hest CT|Service Date: 02/14/2021MRI of brain| Service Date: 09/06/2020T of lungs screening low dose|Service Date: 03/12/2020Colonoscopy| Service Date: 12/07/2019Injection of facet joint| Service Date: 10/25/2019X-ray of cervical spine| Service Date: 04/01/2019Thoracoscopy| Service Date: 04/27/2018Lung procedure| Service Date: 04/27/2018type and screen| Service Date: 04/20/2018Chest X-ray| Service Date: 04/07/2018X-ray of right ankle| Service Date: 10/26/2017Chest angiography for PE| Service Date: 09/01/2017Chest x-ray| Service Date: 09/01/2017Surgery rotator cuff (right shoulder)| Service Date: 08/06/2017Shoulder X-ray| Service Date: 08/06/2017Fistula|Service Date: 08/05/2017Neck surgery| Service Date: 11/27/2016MRI of cervical spine| Service Date: 06/23/2016Greater and lesser occiptal nerve blocks,| Service Date: 05/30/2016MRI of brain and brain stem| Service Date: 05/21/2016X-ray of left knee| Service Date: 02/06/2016X-ray ofleft foot| Service Date: 01/09/2016Knee X-ray bilateral| Service Date: 11/30/2015Cervical spine X-ray| Service Date: 11/17/2015Upper GI endoscopy| Service Date: 2015Colonoscopy| Service Date: 2015CT of abdomen and pelvis with contrast| Service Date: 06/03/2015CXR - Chest X-ray| Service Date: 06/02/2015ECG| Service Date: 06/02/2015Total knee replacement - right|Service Date: 05/02/2015CXR - Chest X-ray| Service Date: 04/09/2015Bilateral Knee replacement(2014 & 2016)| Service Date: 2015 Right knee XRAY| Service Date: 01/29/2015 MRI of cervicalspine| Service Date: 10/19/2014Cervical Spine XRAY| Service Date: 04/18/2014Knee X-ray| Service Date: 04/18/2014Right Knee Surgery, multiple| Service Date: 2014wound vac L knee| Service Date: 2014Colonoscopy| Service Date: 11/04/2013Upper GI endoscopy| Service Date: 11/04/2013Lknee surgery - 09/28/2012| Service Date: 09/28/2012ack surgery| Service Date: 07/24/2011EGD|Service Date: 11/29/2008Colonoscopy| Service Date: nterior cervical disc fusion| Service Date: 04/06/2004Colonoscopy| Service Date: 09/11/2003Left Hernia Repair| Service Date: 2003right elbow surgery| Service Date: 1999cholecystectomy| Service Date: 1999HTO - High tibial osteotomy, Left| Service Date: 1996Appendectomy| Service Date: sacrioliac joint injectionX-ray of bone of ankleRepair of elbow, right side surgery Medications acetaminophen(acetaminophen 500 mg oral tablet), 1000 mg= 2 tab, PO, q8h albuterol(albuterol CFC free 90 mcg/inh MDI), 2 puff, inhaled, qid, PRN apixaban(Eliquis 5 mg oral tablet), See Instructions calcium-vitamin D(calcium with vitamin D 500 mg), 1 tab, PO, bid cyanocobalamin(Vitamin B12), 1 tab, PO, Daily digoxin(digoxin 125 mcg (0.125 mg) oral tablet), 125 mcg= 1 tab, PO, Daily fluticasone(fluticasone CFC free 44 mcg/inh MDI), 2 puff, inhaled, bid, 3 refills furosemide(furosemide 20 mg oral tablet), 20 mg= 1 tab, PO, Daily, 11 refills gabapentin(gabapentin 300 mg oral capsule), 1 cap, PO, tid losartan(losartan 25 mg oral tablet), 1 tab, PO, Daily magnesium oxide(magnesium oxide 400 mg (241.3 mg elemental magnesium) oral tablet), 400 mg= 1 tab, PO, Daily, 6 refills meclizine(meclizine 12.5 mg oral tablet), 12.5 mg= 1 tab, PO, tid, PRN metoprolol(Metoprolol Succinate ER 50 mg oral tablet, extended release), 50 mg= 1 tab, PO, Daily, 3refills multivitamin, See Instructions omeprazole(omeprazole 40 mg oral delayed release capsule), See Instructions riboflavin(riboflavin 400 mg oral capsule), 400 mg= 1 cap, PO, Daily, 6 refills SUMAtriptan(SUMAtriptan 100 mg oral tablet), See Instructions tamSULOsin(Flomax 0.4 mg oral capsule), 0.4 mg= 1 cap, PO, Daily, 11 refills traZODone(traZODone 50 mg oral tablet), See Instructions Allergies IVP dyewelts, itching, hives Social History Smoking Status Current some day heavy smoker Alcohol - High Risk - Comments: 3-5 beers, 1-2 sips whiskey 6 pack and 2 shots daily Exercise - Regular exercise Exercise type:Walking Tobacco - Medium Risk Use:Current every day smoker Type:Cigarettes Tobacco use per day:.5 - Comments: Plans to quit 02/05/16 1 pack every 2 days since age 25 Family History Breast cancer: Mother. Breast cancer: Sister. Diabetes: Sister and Brother. Heart attack: Mother, Father and Brother. High Blood Pressure: Mother and Brother. Liver cancer..: Brother. Stroke: Mother. Type II diabetes mellitus: Negative: Sister. Health Status Family Member(s) Immunizations Vaccine Date Status influenza virus vaccine, inactivated 01/08/2022 Given influenza virus vaccine, inactivated 01/02/2021 Given SARS-CoV-2 (COVID-19) mRNA BNT-162b2 vax 11/20/2020 Recorded Comments : 2021-01-02: Historical information-source unspecified SARS-CoV-2 (COVID-19) mRNA BNT-162b2 vax 10/30/2020 Recorded Comments : 2021-01-02: Historical information-source unspecified zoster vaccine, inactivated 01/07/2020 Recorded Comments : 2020-08-22: Historical information-source unspecified zoster vaccine, inactivated 10/03/2019 Recorded Comments : 2020-08-22: Historical information-source unspecified zoster vaccine, inactivated 2019 Recorded influenza virus vaccine, inactivated 2019 Recorded tetanus/diphtheria/pertuss, acel (Tdap) 12/07/2017 Recorded influenza virus vaccine, inactivated 12/07/2017 Recorded pneumococcal 23-valent vaccine 11/23/2017 Recorded Comments : 2020-08-22: Historical information-source unspecified tetanus/diphtheria/pertuss, acel (Tdap) 11/23/2017 Recorded Comments : 2018-04-29: Historical information-source unspecified influenza virus vaccine, inactivated 11/23/2017 Recorded Comments : 2018-04-29: Historical information-source unspecified influenza virus vaccine, inactivated 01/19/2017 Recorded Comments : 2018-04-29: Historical information-source unspecified influenza virus vaccine, inactivated 01/14/2016 Recorded influenza virus vaccine, inactivated 01/09/2016 Recorded Comments : 2018-04-29: Historical information-source unspecified influenza virus vaccine, inactivated 01/23/2015 Recorded Comments : 2018-04-29: Historical information-source unspecified influenza virus vaccine, inactivated 11/09/2013 Recorded Comments : 2018-04-29: Historical information-source unspecified influenza virus vaccine, inactivated 03/22/2012 Given tetanus/diphtheria/pertuss, acel (Tdap) 01/27/2008 Recorded Recommendations Health Maintenance Pending(in the next year) OverDue Adult Influenza Vaccine due10/03/22and every 1year Due Adult COVID-19 Vaccination due08/05/23Unknown Frequency Adult Social Determinants of Health Screening due08/05/23Unknown Frequency Pneumococcal Vaccine Adults and Adolescents with Chronic Illness due08/05/23One-time only Shingles Vaccine due08/05/23One-time only Satisfied(in the past 1 year) Satisfied Body Mass Index on08/05/23.Satisfied by FLORES Borrego Bobbi Lipid Screening on08/20/22.Satisfied by Contributor_system, Evrent Electronic Signature on File Electronically Reviewed/Signed by: ELEAZAR Colbert Author Signature Dt/Tm:08/05/2023 06:49 PM Department of Family Medicine TB Patient Care team information Care Team Personnel Name: ELEAZAR Hidalgo Tara Position: Nurse Pract - Family Med Member Role: Primary Care Provider Address: Address: [address] [place] [id number] [place] Name: BRIGIDO Olsen Leslie L Position: MOA Schedule II Member Role: HIS Lifetime Name: Drew Santiago Erika Joy Position: Pharmacist Schedule II Member Role: Pharmacy - Lifetime Name: MD Bailey Wayne J Position: Physician - Sports Medicine [place] Member Role: Lifetime Relationship Address: Address: [address] [address] [place] Care Team Related Persons Name: HARDYASHWIN Address: [place] Address: home [address] [place] [address] CRISTIAN HERNDON [phone]"
--- OUTSIDE RECORDS SUMMARY | 2023-11-23 06:02 | External Medical Summary | Continuity of Care Document ---
Author Name Unknown Organization [facility] [address] [place] [address] [place] [id number] Care Team Providers Care President [employer] Name Role Phone Rosita Hidalgo Primary Care Physician [phone] [id number] Date(s): 11/11/23 - 11/11/23 [facility] [address] [facility] [place] [address] [place] [address] [phone] Encounter Diagnosis Bilateral hip pain(Discharge Diagnosis) - 11/11/23 Discharge Disposition: Home or Self Care Attending Physician: ELEAZAR Priest Kelly A Allergies, Adverse Reactions, Alerts Substance Criticality Severity Reaction Reaction Severity Status IVP dye welts, itching hives Active Immunizations Given and Recorded Vaccine Date Status [...] inactivated 8 01/07/20 Recorded zoster vaccine, inactivated 10/03/19 Recorded zoster vaccine, inactivated 04/06/19 Recorded [...] acetaminophen 500 mg oral tablet Start: 02/13/23 1:49:00 PM EST, 2 tab, PO, q8h Start Date: 02/13/23 Status: Ordered albuterol CFC free 90 mcg/inh MDI Start: 11/02/23 1:29:00 PM EDT, 2 puff, inhaled, qid, Disp# 18 g, Refills: 3, PRN: as needed for wheezing, Pharmacy: [facility]/pharmacy #[id number] Start Date: 11/02/23 Status: Ordered calcium with vitamin D 500 mg Start: 10/09/16 1:28:00 PM EDT, 1 tab, PO, bid Start Date: 10/09/16 Status: Ordered digoxin 125 mcg (0.125 mg) oral tablet Start: 02/02/23 9:20:00 AM EDT, 1 tab, PO, Daily Start Date: 02/02/23 Status: Ordered Eliquis 5 mg oral tablet Start: 10/13/22 8:32:00 AM EDT, See Instructions, Disp# 60 tab, Refills: 10, take 1 tablet by mouth twice a day for 30 DAYS, Pharmacy: [facility] #[id number] Start Date: 10/13/22 Status: Ordered Flomax 0.4 mg oral capsule Start: 08/06/23 5:58:00 PM EDT, 1 cap, PO, Daily, Disp# 30 cap, Refills: 11, Pharmacy: [facility] #[id number] Start Date: 08/06/23 Status: Ordered furosemide 20 mg oral tablet Start: 08/06/23 5:58:00 PM EDT, 1 tab, PO, Daily, Disp# 30 tab, Refills: 11, Pharmacy: [facility] #[id number] Start Date: 08/06/23 Status: Ordered gabapentin 300 mg oral capsule Start: 07/20/23 8:00:00 AM EDT, 1 cap, PO, tid, Disp# 90 cap, Refills: 0, Pharmacy: [facility] #[id number] Start Date: 07/20/23 Status: Ordered losartan 25 mg oral tablet Start: 01/07/23 4:03:00 PM EDT, 1 tab, PO, Daily, Disp# 90 tab, Refills: 2, Pharmacy: [facility] #[id number] Start Date: 01/07/23 Status: Ordered magnesium oxide 400 mg (241.3 mg elemental magnesium) oral tablet Start: 09/10/22 11:50:00 AM EDT, 1 tab, PO, Daily, Disp# 30 tab, Refills: 6, Pharmacy: [facility] #[id number] Start Date: 09/10/22 Stop Date: 04/08/23 Status: Ordered meclizine 12.5 mg oral tablet Start: 08/22/22 11:21:00 AM EDT, 1 tab, PO, tid, Disp# 30 tab, PRN: as needed for dizziness, Pharmacy: [facility] #[id number] Start Date: 08/22/22 Status: Ordered Metoprolol Succinate ER 50 mg oral tablet, extended release Start: 02/16/23 9:25:00 AM EST, 1 tab, PO, Daily, Disp# 90 tab, X 90 day, Refills: 3, Stop: :25:00 AM EST, Pharmacy: [facility] #[id number] Start Date: 02/16/23 Stop Date: 02/11/24 Status: Ordered multivitamin Start: 04/22/10 1:31:31 PM EST, See Instructions, Refills: 0, One Daily No Dosage Noted, current medication from another provider Start Date: 04/22/10 Status: Ordered omeprazole 40 mg oral delayed release capsule Start: 08/06/23 5:58:00 PM EDT, See Instructions, Disp# 60 cap, Refills: 11, take 1 capsule by mouth twice a day, Pharmacy: [facility] #[id number] Start Date: 08/06/23 Status: Ordered Qvar MDI 40 mcg/inh Start: 11/03/23 6:19:00 PM EDT, 2 puff, inhaled, bid, Disp# 10.6 g, Refills: 11, Pharmacy: [facility]/pharmacy #[id number] Start Date: 11/03/23 Status: Ordered riboflavin 400 mg oral capsule Start: 09/10/22 11:49:00 AM EDT, 1 cap, PO, Daily, Disp# 30 cap, Refills: 6, Pharmacy: [facility] #[id number] Start Date: 09/10/22 Stop Date: 04/08/23 Status: Ordered SUMAtriptan 100 mg oral tablet Start: 12/15/22 4:42:00 PM EDT, See Instructions, Disp# 9 tab, Refills: 5, take 1 tablet by mouth ATONSET OF HEADACHE may repeat in 2 hours IF headache PERSISTS maximum daily dose of 2 tablets ( 200 milligrams ) every 24 hours, Pharmacy: [facility] #[id number] Start Date: 12/15/22 Status: Ordered traZODone 50 mg oral tablet Start: 11/25/22 6:50:00 PM EDT, See Instructions, Disp# 60 tab, Refills: 5, take 1 to 2 tablets by mouth at bedtime, Pharmacy: [facility] #[id number] Start Date: 11/25/22 Status: Ordered Vitamin B12 Start: 04/15/22 10:45:00 AM EST, 1 tab, PO, Daily Start Date: 04/15/22 Status: Ordered Mental Status 11/11/23 Barriers to Learning one year None evide nt Mandatory Health Literacy Documentation Yes Health Literacy Communication Barriers N ever Primary Language [place] Island[place] Problem List Condition Confirmation Course Effective Dates [...] Diagnosis Diagnosis Type Effective Dates Health Status Cl inical Service Informant Bilateral hip pain Discharge Diagnosis 11/11/23 History of lumbar fusion. 11/11/23 Non-Specified Procedures Procedure Date Related Diagnosis Body [...] eted HTO - High tibial osteotomy, Left 1996 Completed Appendectomy 1975 Completed L sacrioliac joint injection Completed Repair of elbow, right side surgery Completed X-ray of bone of ankle 68 Completed 1No acute cardiopulmonary findings. 21. Hepatic steatosis 2. Prior cholecystectomy 3. A 2 cm right renal cyst [address] [place] [address] Impression: 1. No evidence for a pulmonary [...] mucosa at the cricopharyngeus, otherwise without abnormality 35Armsrr-Nbpksjoom-Hhnbujifrqa chronic inflammation. Immunohistochemical stain for H Pylori positive. 63Possible short segment Koroma's Gastritis-erosions Normal Duodenum 64Biopsy- Stomach- Chronic active Gastritis, moderate. No intestinal metaplasia seen. 71Ucxep1.7cm removed Internal hemorrhoid Diverticulosis 66Biopsy-Hyperplastic Polyp. 67left 68RIGHT ANKLE Impression: 1. No acute fractures. 2. Soft tissue swelling 3. Corticated ossicles adjacent to the medial and lateral malleolus. These are felt to be old. 4. No destructive lesions are visualized. Results Radiology Reports * Exam Date Time Procedure Performing Provider Status 11/11/23 8:31 AM XR Spine Lumbosacral 2 or 3 Views Nanci Packer; Final Notes: (XR Spine Lumbosacral 2 or 3 Views) Reason For Exam: Lumbar spine fusion XR Spine Lumbosacral 2 or 3 Views EXAMINATION: XR Spine Lumbosacral 2 or 3 Views CLINICAL HISTORY: Z98.1: Arthrodesis status; Lumbar spine fusion COMPARISON: Lumbosacral spine radiographs to 624 FINDINGS: Upright AP and lateral views. L3-L4 posterior spinal fusion, interbody cage, and decompression. No hardware complication. Mild to moderate degenerative changes, most significant at L4-L5, unchanged. Mild degenerative changes of SI joints. Right upper quadrant surgical clips. Aortic atherosclerosis. IMPRESSION: L3-L4 posterior spinal fusion and decompression without hardware complication. Dr. Steve Forbes is the dictating resident. Finalized reports status indicates that the attending has reviewed the images and report, and agrees with the interpretation. Preliminary report status should be regarded as NOT interpreted by the attending radiologist. Workstation ID: [id number] Final Dictated by:DO Forbes Aivy Dictated DT/TM:11/11/2023 4:38 Resident:DO Forbes Aivy Signed by:MD Abraham Pamela L Signed (Electronic Signature):11/11/2023 4:36 p Social History Social History Type Response Tobacco Current every day sm oker, Cigarettes, .5 per day. 1, 2 Smoking Status Current every day li ght smoker Sex Male Sex Representation Male (finding) 1Plans to quit 02/05/16 21 pack every 2 days since age 25 Implantable Device List Procedure Provider Procedure Date Device Type Site Unknown Unknown 02/12/23 Unknown Unknown Device Identifier Serial Number Lot or Batch Number Manufacturing Date Expiration Date Distinct Identification Code MRI Safety Implantable Status Assigning Authority Unknown Unknown [id number] Unknown 10/03/25 Unknown Unknown Active Unknown [...] Unknown 02/12/23 Unknown Unknown Active Unkn own Ortho Outpt Note * ELEAZAR Priest Kelly A: PERFORM Event Display: Ortho Outpt Note Authored Date: [id number] Name:ALECIA ABURTO Patient Number:[id number] :1960 Date of Service:11/11/2023 NAME OF PROCEDURE: Revision L2, L3, L4, L5, S1 laminectomy, medial facetectomy, and foraminotomies L3/4 posterior segmental instrumentation L3/4 posterior arthrodesis Left L3/4 transforaminal interbody fusion Titanium interbody cage placement Morselized local autograftMorselized allograft DATE OF PROCEDURE: 02/12/23 PROCEDURE PERFORMED BY:Dr. Wood INTERIM HISTORY:Patient returns to clinic today for reevaluationof ongoing low backpain. Henotes thathe is having trouble walking as he feels like her legs are giving out. He has troublewalking even short distances due to his legs feeling heavy and tired. This has been going on for several months. He denies any bowel or bladder incontinence. Patient is asking if he had can have any pain medication as he has been taking bquw-afa-wkpgmnb medications without relief. PHYSICAL EXAM:Patient is alert and cooperative. He is well scarred lumbar incision. He has5 out of 5 strength in his lower extremities throughout. Mild peripheral edema is noted in his bilateral feet. STUDIES:Lumbar x-rays obtained today reviewed today forshow a stable fusion construct from L3-L4, Mild posterior lateral bony bridging. ASSESSMENT:9 months status post the above lumbar laminectomy and L3-L4 fusion. Patient haslegpain. Subjective weakness. I am concerned about thepossibility of junctional stenosis and therefore I ordered an MRI of the thoracic and lumbar spine to look for junctional stenosis as a causethe patient'ssubjective leg weakness. PLAN:Return to back to the office after the MRI is completed. Patient wants is closer to his home. ATTESTATION: This note was created usingEchodio dictation software. Inadvertent errorsmay be present despite bestefforts to edit. Electronic Signature on File Electronically Reviewed/Signed by: ELEAZAR Gonzalez Author Signature Dt/Tm:11/12/2023 12:32 PM Division of Orthopaedics [place] Patient Care team information Care Team Personnel Name: ELEAZAR Hidalgo Tara Position: Nurse Pract - Family Med Member Role: Primary Care Provider Address: [address] [place] [address] [place] Name: BRIGIDO Olsen Leslie L Position: MOA Schedule II Member Role: HIS Lifetime Name: Drew Santiago Erika Joy Position: Pharmacist Member Role: Pharmacy - Lifetime Name: MD Lynn, Gunnar Metz Position: Physician - Sports Medicine [place] Member Role: Lifetime Relationship Address: [address] [place] [address] [place] Care Team Related Persons Name: ASHWIN HARDY
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
[2023-11-23] MEDS: ALBUT/IPRATROP 3MG/0.5MG NEB 3 ML VIAL NEB STA (06:46)
[2023-11-23 07:24] LABS: Adenovirus PCR Not Detected (NotDetected); Bordetella parapertussis PCR Not Detected (NotDetected); Bordetella pertussis PCR Not Detected (NotDetected); Chlamydia pneumoniae PCR Not Detected (NotDetected); Coronavirus 229E PCR Not Detected (NotDetected); Coronavirus CoV-2 (COVID19)PCR Not Detected (NotDetected); Coronavirus HKU1 PCR Not Detected (NotDetected); Coronavirus NL63 PCR Not Detected (NotDetected); Coronavirus OC43PCR Not Detected (NotDetected); Human Metapneumovirus PCR Not Detected (NotDetected); Influenza A PCR Not Detected (NotDetected); Influenza B PCR Not Detected (NotDetected); Mycoplasma pneumoniae PCR Not Detected (NotDetected); Parainfluenza Virus 1 PCR Not Detected (NotDetected); Parainfluenza Virus 2 PCR Not Detected (NotDetected); Parainfluenza Virus 3 PCR Not Detected (NotDetected); Parainfluenza Virus 4 PCR Not Detected (NotDetected); Respiratory Syncytial VirusPCR Not Detected (NotDetected); Rhinovirus/Enterovirus PCR Not Detected (NotDetected)
[2023-11-23 07:44] LABS: Basophils # (auto) 0.05 K/uL (0.00-0.20); Basophils % (auto) 0.4 %; Eosinophils # (auto) 0.27 K/uL (0.00-0.50); Eosinophils % (auto) 2.4 %; Hematocrit (blood only) 46.5 % (42.0-52.0); Hemoglobin 14.4 g/dl (14.0-18.0); Immature Granulocytes # (auto) 0.06 K/uL (0.01-0.20); Immature Granulocytes % (auto) 0.5 %; Lymphocytes # (auto) 1.54 K/uL (1.20-3.40); Lymphocytes % (auto) 13.6 %; Mean Corpuscular Hemoglobin 25.6 pg (25.0-34.0); Mean Corpuscular Volume 82.7 fL (80.0-100.0); Mean Platelet Volume 9.2 fL (9.4-12.4); Monocytes # (auto) 1.21 K/uL (0.11-0.59); Monocytes % (auto) 10.7 %; Neutrophils # (auto) 8.16 K/uL (1.40-6.50); Neutrophils % (auto) 72.4 %; Platelet Count 213 K/uL (130-400); RDW Coefficient of Variation 18.2 % (11.5-14.5); RDW Standard Deviation 51.5 fL (36.4-46.3); Red Blood Count 5.62 M/uL (4.70-6.10); White Blood Count 11.29 K/ul (4.8-10.8)
--- NOTE | 2023-11-23 07:46 | XRay Report ---
XR chest 1V portable CLINICAL HISTORY: Chest pain, nonspecific TECHNIQUE: Single frontal radiograph of the chest was obtained. Comparison: Comparison is made to chest radiograph 09/19/2022 FINDINGS: No lines and tubes are seen. The cardiomediastinal silhouette is normal. The lungs are clear. No evid ence of pleural effusion or pneumothorax. IMPRESSION: No acute chest disease. ACT 112: Negative or not required by law. Electronically signed by: Aj Rodriguez M.D. 11/23/2023 7:45 AM
[2023-11-23] MEDS: ALBUT/IPRATROP 3MG/0.5MG NEB 3 ML VIAL NEB ONE (07:51)
[2023-11-23] MEDS: methylPREDNISolone 125 MG/2 ML VIAL IV STA (07:51)
[2023-11-23] MEDS: ACETAMINOPHEN 325 MG TAB PO STA (07:51)
[2023-11-23 07:54] LABS: Albumin Globulin Ratio 1.3 (0.9-2); Albumin Level 3.9 gm/dl (3.4-5.0); BUN Creatinine Ratio 12.7 (10-20); Bilirubin,Total 0.7 mg/dl (0.2-1.0); Calcium 8.9 mg/dl (8.6-10.3); Creatinine Clr Calc Pharmacy 131.6 ml/min; Est GFR (African American) 111.5 ml/min; Est GFR (Non-African American) 96.2 ml/min; Globulin 2.9 gm/dl (2.5-4.0); Potassium 4.2 mmol/L (3.5-5.1); Total Protein 6.8 gm/dl (6.0-8.3)
[2023-11-23 08:31] LABS: Partial Thromboplastin Ratio 1.2; Partial Thromboplastin Time 31 Seconds (21-31)
[2023-11-23 08:40] LABS: Magnesium 1.6 mg/dl (1.7-2.4)
[2023-11-23] MEDS: MAGNESIUM SULFATE / D5W 1 GM/100 ML BAG IV SCH (09:15)
[2023-11-23] MEDS: MAGNESIUM SULFATE / D5W 1 GM/100 ML BAG IV STA (09:15)
[2023-11-23] MEDS: LORazepam 1 MG/1 ML SYR ED Inj Use IV STA (09:19)
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
[2023-11-23] MEDS: DOXYCYCLINE HYCLATE 100 MG in DEXTROSE 5% MINI-B 100 ML IV STA (10:22)
[2023-11-23] MEDS: METOPROLOL TARTRATE 25 MG TAB PO STA (10:22)
[2023-11-23] MEDS: DIGOXIN 0.125 MG TAB PO ONE (10:23)
[2023-11-23] MEDS ORDERED: GABAPENTIN 800MG ALCOHOL WITHDRAWAL LOAD PO STA (11:03)
[2023-11-23] MEDS ORDERED: ONDANSETRON INJ 2 MG/ML 2 ML VIAL IV PRN (11:03)
[2023-11-23] MEDS: PANTOprazole 40 MG TAB PO SCH (11:48)
[2023-11-23] MEDS: GABAPENTIN 400 MG CAP PO ONE (11:48)
[2023-11-23] MEDS: guaiFENesin 600 MG TABCR PO SCH (11:48)
[2023-11-23] MEDS: APIXABAN 5 MG TABLET PO SCH (11:48)
[2023-11-23] MEDS: THIAMINE HCL 200 MG in SODIUM CHLORIDE 0.9% 50 ML IV SCH (11:49)
[2023-11-23] MEDS: UMECLIDINIUM/VILANTEROL 62.5/25MCG 7 PUFFS/INHALER INH SCH (11:49)
[2023-11-23] MEDS: ALBUT/IPRATROP 3MG/0.5MG NEB 3 ML VIAL ONE (12:11)
[2023-11-23] MEDS: ALBUT/IPRATROP 3MG/0.5MG NEB 3 ML VIAL NEB SCH (12:11)
[2023-11-23] MEDS: cefTRIAXone SODIUM 2,000 MG/50 ML BAG IV STA (12:36)
[2023-11-23] MEDS: NICOTINE 21 MG/24 HR TDSY TD SCH (13:24)
[2023-11-23] MEDS: GABAPENTIN 400 MG CAP PO SCH (16:49)
[2023-11-23] MEDS: METOPROLOL TARTRATE 25 MG TAB PO SCH (20:43)
[2023-11-23] MEDS: dexAMETHasone 4 MG in SYRINGE 0 ML IV SCH (20:45)
[2023-11-23] MEDS: DOXYCYCLINE HYCLATE 100 MG in DEXTROSE 5% MINI-B 100 ML IV SCH (21:13)
[2023-11-24] MEDS: GABAPENTIN 400 MG CAP PO SCH (05:33)
[2023-11-24 07:44] LABS: Basophils % (auto) 0.1 %; Hematocrit (blood only) 44.3 % (42.0-52.0); Hemoglobin 13.8 g/dl (14.0-18.0); Immature Granulocytes % (auto) 0.7 %; Lymphocytes # (auto) 0.92 K/uL (1.20-3.40); Lymphocytes % (auto) 4.4 %; Mean Corpuscular Hemoglobin 25.9 pg (25.0-34.0); Mean Corpuscular Hgb Conc 31.2 g/dL (32.0-36.0); Mean Corpuscular Volume 83.3 fL (80.0-100.0); Mean Platelet Volume 9.7 fL (9.4-12.4); Monocytes % (auto) 6.7 %; Neutrophils # (auto) 18.45 K/uL (1.40-6.50); Neutrophils % (auto) 88.1 %; Platelet Count 258 K/uL (130-400); RDW Coefficient of Variation 18.3 % (11.5-14.5); RDW Standard Deviation 53.3 fL (36.4-46.3); Red Blood Count 5.32 M/uL (4.70-6.10); White Blood Count 20.95 K/ul (4.8-10.8)
[2023-11-24 07:45] LABS: Basophils # (auto) 0.03 K/uL (0.00-0.20); Immature Granulocytes # (auto) 0.15 K/uL (0.01-0.20); Nucleated RBC # (auto) 0.02 K/uL (0.00-0.12); Nucleated RBC % (auto) 0.1 %
[2023-11-24 07:53] LABS: Calcium 8.9 mg/dl (8.6-10.3); Creatinine Clr Calc Pharmacy 146.6 ml/min; Est GFR (African American) 117.2 ml/min; Est GFR (Non-African American) 101.1 ml/min; Potassium 4.9 mmol/L (3.5-5.1)
[2023-11-24 08:07] LABS: Thyroid Stimulating Hormone 0.483 uIu/ml (0.300-4.500)
--- NOTE | 2023-11-24 08:28 | Electrocardiogram Report ---
Test Reason : Blood Pressure : */* mmHG Vent. Rate : 101 BPM Atrial Rate : * BPM P-R Int : * ms QRS Dur : 96 ms QT Int : 342 ms P-R-T Axes : * -32 92 degrees QTcB Int : 443 ms Atrial fibrillation with rapid ventricular response Left axis deviation Incomplete right bundle branch block Abnormal ECG When compared with ECG of 19-Sep-2022 17:45, No significant change was found Confirmed by Oz Wilson ([id number]) on 11/24/2023 8:28:02 AM Referred By: REFERRED SELF Confirmed By: Oz Wilson
[2023-11-24] MEDS: FOLIC ACID 1 MG TAB PO SCH (08:36)
[2023-11-24] MEDS: TAMSULOSIN HCL 0.4 MG CAP PO SCH (08:36)
[2023-11-24] MEDS: cefTRIAXone SODIUM 2,000 MG/50 ML BAG IV SCH (11:43)
--- NOTE | 2023-11-24 16:04 | Ultrasound Report ---
ULTRASOUND BILATERAL LOWER EXTREMITY VENOUS CLINICAL HISTORY: Dyspnea. Lower extremity edema. COMPARISON STUDY: Bilateral lower extremity venous ultrasound dated 06/06/2021. TECHNIQUE: Real-time, grayscale, and color Doppler sonography of the deep veins of the right and left lower extremity was performed from the inguinal crease to the calf. Compression and augmentation wer e utilized. FINDINGS: There is no sonographic evidence of deep venous thrombosis identified in the right or left lower extremity. The common femoral, superficial femoral, and popliteal veins are patent and normally compressible bilaterally. The greater saphenous vein and the profunda femoris vein at the junction w ith the common femoral vein are clear in both legs. The visualized calf veins are patent bilaterally. IMPRESSION: There is no sonographic evidence of deep venous thrombosis identified in the right or lef t lower extremity. ACT 112: Negative or not required by law. Electronically signed by: Atilio Pace M.D. 11/24/2023 4:03 PM
--- NOTE | 2023-11-24 16:25 | XCELERA ---
[id number]
[2023-11-24] MEDS: DIGOXIN 0.125 MG TAB PO SCH (16:30)
--- NOTE | 2023-11-24 16:49 | Hospitalist Progress Note ---
Date of Service November 24, 2023 Assessment & Plan (1) Acute hypoxic respiratory failure: Plan: 63-year-old man with history of smoking, COPD, obstructive sleep apnea, obesity admitted with acute hypoxic respiratory failure likely due to COPD exacerbation. He does have some symptoms typical of a viral URI including some sinusitis symptoms, however, respiratory bio fire was negative on admission. Considered pneumonia however seems unlikely given negative procalcitonin is clear chest x- ray no fever, minimal leukocytosis. given his progressive dyspnea on exertion including orthopnea and leg edema consider heart failure, also consider pulmonary embolism continue treating COPD exacerbation with bronchodilators, change steroids to prednisone 40 mg daily continue antibiotics for possible pulmonary infection or acute bacterial sinusitis for now, narrow to oral doxycycline if procalcitonin's remain negative. sputum culture is pending - start Afrin x 3 days for sinusitis, defer Flonase since on oral steroids - repeat COVID swab tomorrow although loss of smell can also be from other viruses and from sinusitis - BNP is low making heart failure less likely however he is obese so can be false negative, obtained TTE which shows normal EF and has new finding of moderate pulmonary hypertension which likely relates to his COPD and obstructive sleep apnea - trial diuresis with Lasix 40 mg IV x 1, a.m. BMP - consider pulmonary embolism, seems unlikely since no chest pain and hypoxia is very mild also barely requiring oxygen at this time, leg edema is asymmetric probably because of old TKR on the left however I did obtain lower extremity duplex which is negative for DVT (2) COPD exacerbation: Plan: see above (3) Sinusitis: Plan: Patient has been ill for 2-3 weeks with URI symptoms. see above (4) Person under investigation for COVID-19: Plan: repeat COVID test tomorrow (5) Atrial fibrillation with rapid ventricular response: Plan: 2nd to stress of illness, albuterol TSH within normal limits continue digoxin and metoprolol Continue Eliquis 5mg BID (6) Alcohol dependence: Plan: 6 shots of whiskey/day along with beer at times. No prior h/o alcohol withdrawal but at high risk of such. continue alcohol withdrawal gabapentin protocol, no clear evidence of alcohol withdrawal at this time Thiamine 200mg BID. Folic acid 1mg daily. (7) Tobacco abuse: Plan: Nicoderm patch 21mg/day. Smoking cessation counseled 11/23, he did buy a box of patches and plans to continue these at home (8) Hypertension: Plan: Continue metoprolol. Continue flomax. Hold ARB. Adjust as needed. (9) GERD (gastroesophageal reflux disease): Plan: PPI twice daily. (10) FELICIA (obstructive sleep apnea): Plan: Outpatient BIPAP settings 18/01 per records. (11) Hypomagnesemia: Plan: replaced IV and normalized Plan DVT prophylaxisapixaban Admission and Anticipated Discharge Date Admission Date: November 23, 2023 Subjective still feels quite short of breath and not really improved since yesterday, remains tight and wheezy he does have a history of atrial fibrillation he thinks Dr. Zamora mention once at least a year ago that he needed heart stents, he says he has a bicuspid aortic valve, no history of heart failure he has had dyspnea on exertion he feels ever since after his back surgery last fall however reviewing old cardiology and primary care notes it is more longstanding than that this has been progressive and now he feels like he really cannot do anything including just walking around the house and going to the bathroom makes him very short of breath. He has leg edema this also started last fall. he intends to try to quit smoking this time Physical Exam 2 Physical Exam: PHYSICAL EXAMINATION Last 24h vital signs reviewed, see documentation in flowsheet General: sitting up in bed appears short of breath HEENT: Normocephalic, atraumatic, pupils round and equal, sclerae anicteric, no conjunctival injection, moist mucus membranes Lungs: increased respiratory effort. coarse breath sounds and expiratory wheezes throughout Heart: Regular rate and rhythm, no murmurs. large neck and srinivasan cannot see neck veins Abdomen: obese/protuberant, no fluid wave, Soft, nontender, nondistended. Bowel sounds present. Extremities: Warm, dry, well-perfused. 2+ left greater than right pitting lower extremity edema. Neuro: Alert and oriented x 4, face symmetric, moves 4 extremities well Psych: Normal affect and behavior Results & Data Results & Data Vital Signs (Past 12 Hours) Vital Signs Temp Pulse Pulse Resp BP Pulse Ox O2 Del Method 11/24/23 16:30 101 H 11/24/23 15:15 36.6 C 101 H 20 118/82 94 Nasal Cannula 11/24/23 14:12 106 H 17 94 Nasal Cannula 11/24/23 11:20 36.4 C L 87 20 134/84 95 Nasal Cannula 11/24/23 08:05 102 H 17 93 Nasal Cannula 11/24/23 07:49 92 H 11/24/23 07:49 Nasal Cannula 11/24/23 07:42 36.5 C 96 H 20 134/89 93 Nasal Cannula O2 Flow Rate 11/24/23 16:30 11/24/23 15:15 2 11/24/23 14:12 2 11/24/23 11:20 2 11/24/23 08:05 2 11/24/23 07:49 11/24/23 07:49 2 11/24/23 07:42 2 Laboratory Results 11/24/23 07:04 11/24/23 07:04 BNP was less than 100 procalcitonin was negative this morning PG Care Time/CCT Total # of Minutes Spent Total Time Spent with Patient: Total time spent is greater than 50% in coordination of care (as documented) at patient's floor/unit and/or counseling patient: Coding Level of Care Code 70158 SUB INP/OBS CARE 3/50MIN Diagnoses Acute hypoxic respiratory failure J96.01 COPD exacerbation J44.1 Sinusitis J32.9 Person under investigation for COVID-19 Z20.822 Atrial fibrillation with rapid ventricular response I48.91 Alcohol dependence F10.20 Tobacco abuse Z72.0 Hypertension I10 GERD (gastroesophageal reflux disease) K21.9 FELICIA (obstructive sleep apnea) G47.33 Hypomagnesemia E83.42
[2023-11-24] MEDS: FUROSEMIDE 40 MG/4 ML VIAL IV ONE (16:58)
[2023-11-24] MEDS: OXYMETAZOLINE 0.05% 30 ML BTL SCH (21:33)
[2023-11-25] MEDS: predniSONE 20 MG TAB PO SCH (09:43)
[2023-11-25] MEDS: GABAPENTIN 400 MG CAP PO SCH (09:43)
[2023-11-25 10:20] LABS: BUN Creatinine Ratio 25.6 (10-20); Creatinine Clr Calc Pharmacy 132.4 ml/min; Est GFR (African American) 112.1 ml/min; Est GFR (Non-African American) 96.7 ml/min; Potassium 4.8 mmol/L (3.5-5.1)
[2023-11-25] MEDS: FUROSEMIDE 40 MG/4 ML VIAL IV SCH (12:04)
[2023-11-25] MEDS: CYCLOBENZAPRINE HCL 5 MG TAB PO PRN (14:16)
[2023-11-25] MEDS: ACETAMINOPHEN 325 MG TAB PO PRN (14:16)
--- NOTE | 2023-11-25 16:18 | Hospitalist Progress Note ---
Date of Service November 25, 2023 Assessment & Plan (1) Acute hypoxic respiratory failure: Plan: 63-year-old man with history of smoking, COPD, obstructive sleep apnea, obesity admitted with acute hypoxic respiratory failure likely due to COPD exacerbation. He does have some symptoms typical of a viral URI including some sinusitis symptoms, however, respiratory bio fire was negative on admission. Considered pneumonia however seems unlikely given negative procalcitonin is clear chest x- ray no fever, minimal leukocytosis. given his progressive dyspnea on exertion including orthopnea and leg edema consider heart failure, also consider pulmonary embolism continue treating COPD exacerbation with bronchodilators, continue prednisone 40 mg daily. doxycycline 100 mg twice daily x 5 days for COPD exacerbation. Mucinex doubt bacterial pneumonia. Changed cefepime to ceftriaxone 2 oral cefuroxime to cover acute sinusitis. procalcitonin is negative sputum with light normal rima - start Afrin x 3 days for sinusitis, defer Flonase since on oral steroids - repeat COVID test pending today - BNP is low making heart failure less likely however he is obese so can be false negative, obtained TTE which shows normal EF and has new finding of moderate pulmonary hypertension which likely relates to his COPD and obstructive sleep apnea - continue diuresis with Lasix 40 mg IV daily, a.m. BMP. Reviewed labs today BUN/creatinine stable and potassium is normal - leg edema at least is improved, unclear if improving his wheezing and dyspnea - considered pulmonary embolism, seems unlikely since no chest pain and hypoxia is very mild also barely requiring oxygen at this time, leg edema is asymmetric probably because of old TKR on the left however I did obtain lower extremity duplex which is negative for DVT (2) COPD exacerbation: Plan: see above Sees pulm Dr. Eduardo. PFT 11/03/22 reviewed (3) Sinusitis: Plan: Patient has been ill for 2-3 weeks with URI symptoms. see above (4) Person under investigation for COVID-19: Plan: repeat COVID test pending (5) Atrial fibrillation with rapid ventricular response: Plan: RVR early in admission 2nd to stress of illness, albuterol - seems to have resolved TSH within normal limits continue digoxin and metoprolol Continue Eliquis 5mg BID (6) Alcohol dependence: Plan: 6 shots of whiskey/day along with beer at times. No prior h/o alcohol withdrawal but at high risk of such. continue alcohol withdrawal gabapentin protocol, no clear evidence of alcohol withdrawal at this time Thiamine 200mg BID. Folic acid 1mg daily. (7) Tobacco abuse: Plan: Nicoderm patch 21mg/day. Smoking cessation counseled 11/23, he did buy a box of patches and plans to continue these at home (8) Hypertension: Plan: Continue metoprolol. Continue flomax. Hold ARB. Adjust as needed. (9) GERD (gastroesophageal reflux disease): Plan: PPI twice daily. (10) FELICIA (obstructive sleep apnea): Plan: Outpatient BIPAP settings 18/01 per records. now with moderate pulmonary hypertension on his TTE I strongly counseled that he work on getting his home machine replaced, he has not been using it for a year or a year and a half because it is broken. He thinks the mask here at the hospital is much more effective (11) Hypomagnesemia: Plan: replaced IV and normalized Plan DVT prophylaxisapixaban Admission and Anticipated Discharge Date Admission Date: November 23, 2023 Subjective seems like his breathing may be a little bit better today, continues to have leg swelling urinated a lot and edema is a little bit improved sinuses seem to be draining a bit better now, continues with hoarse voice Physical Exam 2 Physical Exam: PHYSICAL EXAMINATION Last 24h vital signs reviewed, see documentation in flowsheet General: awake alert and sitting in bed looks more comfortable today HEENT: Normocephalic, atraumatic, pupils round and equal, sclerae anicteric, no conjunctival injection, moist mucus membranes Lungs: slightly increased respiratory effort. lungs are clear now with musical expiratory wheezes throughout anteriorly and posteriorly bilaterally, air movement improved Heart: Regular rate and rhythm, no murmurs. large neck and srinivasan cannot see neck veins Abdomen: soft nontender nondistended bowel sounds present Extremities: Warm, dry, well-perfused. 2+ left greater than right pitting lower extremity edema - slightly improved no longer shiny, now some skin wrinkling Neuro: Alert and oriented x 4, face symmetric, moves 4 extremities well Psych: Normal affect and behavior Skin: chronic rash both arms and shins, some are excoriations Results & Data Results & Data Vital Signs (Past 12 Hours) Vital Signs Temp Pulse Resp BP Pulse Ox Pulse Ox O2 Del Method 11/25/23 14:17 36.7 C 92 H 18 123/78 94 Nasal Cannula 11/25/23 13:15 88 18 95 Nasal Cannula 11/25/23 11:00 100 11/25/23 10:43 36.4 C L 81 16 125/81 96 Nasal Cannula 11/25/23 07:30 89 18 96 Nasal Cannula 11/25/23 07:06 36.5 C 78 18 116/80 93 Room Air O2 Del Method O2 Flow Rate O2 Flow Rate 11/25/23 14:17 2 11/25/23 13:15 2 11/25/23 11:00 Nasal Cannula 2 11/25/23 10:43 2 11/25/23 07:30 2 11/25/23 07:06 Laboratory Results 11/24/23 07:04 11/25/23 09:40 PG Care Time/CCT Total # of Minutes Spent Total Time Spent with Patient: Total time spent is greater than 50% in coordination of care (as documented) at patient's floor/unit and/or counseling patient: Coding Level of Care Code 89758 SUB INP/OBS CARE 2/35MIN Diagnoses Acute hypoxic respiratory failure J96.01 COPD exacerbation J44.1 Sinusitis J32.9 Person under investigation for COVID-19 Z20.822 Atrial fibrillation with rapid ventricular response I48.91 Alcohol dependence F10.20 Tobacco abuse Z72.0 Hypertension I10 GERD (gastroesophageal reflux disease) K21.9 FELICIA (obstructive sleep apnea) G47.33 Hypomagnesemia E83.42
[2023-11-25] MEDS: cefUROXime axetil 500 MG TAB PO SCH (21:53)
[2023-11-25] MEDS: DOXYCYCLINE HYCLATE 100 MG CAP PO SCH (21:54)
[2023-11-26] MEDS: LORazepam 1 MG TAB PO PRN ×2 (07:15→09:23)
[2023-11-26] MEDS ORDERED: LORazepam 1 MG TAB PO PRN ×2 (08:05)
[2023-11-26] MEDS ORDERED: Ativan PO Alcohol Withdrawal--Active Protocol PO PRN (08:05)
[2023-11-26 08:30] LABS: Est GFR (African American) 121.6 ml/min; Est GFR (Non-African American) 104.9 ml/min; Potassium 3.8 mmol/L (3.5-5.1)
[2023-11-26 08:31] LABS: BUN Creatinine Ratio 29.7 (10-20); Calcium 8.8 mg/dl (8.6-10.3); Creatinine Clr Calc Pharmacy 161.1 ml/min
[2023-11-26] MEDS: THIAMINE HCL 100 MG TAB PO SCH (09:29)
[2023-11-26] MEDS: ALBUTEROL 0.083% NEBU SOLN 3 ML VIAL NEB PRN (09:30)
[2023-11-26] MEDS ORDERED: MECLIZINE HCL 25 MG TAB PO PRN (09:48)
--- NOTE | 2023-11-26 10:00 | Hospitalist Progress Note ---
Date of Service November 26, 2023 Assessment & Plan (1) Acute hypoxic respiratory failure: Plan: 63-year-old man with history of smoking, COPD, obstructive sleep apnea, obesity admitted with acute hypoxic respiratory failure likely due to COPD exacerbation. He does have some symptoms typical of a viral URI including some sinusitis symptoms, however, respiratory bio fire was negative on admission. Considered pneumonia however seems unlikely given negative procalcitonin is clear chest x- ray no fever, minimal leukocytosis. given his progressive dyspnea on exertion including orthopnea and leg edema consider heart failure, also consider pulmonary embolism continue treating COPD exacerbation with bronchodilators, continue prednisone 40 mg daily. doxycycline 100 mg twice daily x 5 days for COPD exacerbation. Mucinex -worse wheezing/tightness and dyspnea 11/25 - added solumedrol 40 IV x 1, added PRN albuterol to q6h scheduled duoneb, discussed with RN and RT -address pain and anxiety - toradol 30 mg IV x1 for MSK pain flare, treat alcohol wd doubt bacterial pneumonia. Changed cefepime to ceftriaxone to oral cefuroxime to cover acute sinusitis. procalcitonin is negative sputum with light normal irma - Afrin x 3 days for sinusitis, defer Flonase since on oral steroids - repeat COVID test was negative, DC isolation - BNP is low making heart failure less likely however he is obese so can be false negative, obtained TTE which shows normal EF and has new finding of moderate pulmonary hypertension which likely relates to his COPD and obstructive sleep apnea - BMP today with normal potassium and BUN/Cr - continue diuresis IV lasix daily, am BMP - leg edema at least is improved, unclear if improving his wheezing and dyspnea - considered pulmonary embolism, seems unlikely since no chest pain and hypoxia is very mild also barely requiring oxygen at this time, leg edema is asymmetric probably because of old TKR on the left however I did obtain lower extremity duplex which is negative for DVT (2) Alcohol withdrawal: Plan: 6 shots of whiskey/day along with beer at times, now in active withdrawal fairly mild. Early hospitalization treated with gabapentin protocol - last dose of protocol today, 400 mg Added PRN lorazepam for AWSS>6 Added seroquel 25 mg PRN anxiety/agitation and AWSS not justifying further ativan Meclizine PRN vertigo Thiamine 200mg BID. Folic acid 1mg daily. (3) COPD exacerbation: Plan: see above Sees pulm Dr. Eduardo. PFT 11/03/22 reviewed (4) Sinusitis: Plan: Patient has been ill for 2-3 weeks with URI symptoms. see above (5) Person under investigation for COVID-19: Plan: repeat COVID test pending (6) Atrial fibrillation with rapid ventricular response: Plan: RVR early in admission 2nd to stress of illness, albuterol - seems to have resolved TSH within normal limits continue digoxin and metoprolol Continue Eliquis 5mg BID (7) Tobacco abuse: Plan: Nicoderm patch 21mg/day. Smoking cessation counseled 11/23, he did buy a box of patches and plans to continue these at home (8) Hypertension: Plan: Continue metoprolol. Continue flomax. Hold ARB. Adjust as needed. (9) GERD (gastroesophageal reflux disease): Plan: PPI twice daily. (10) FELICIA (obstructive sleep apnea): Plan: Outpatient BIPAP settings 18/01 per records. now with moderate pulmonary hypertension on his TTE I strongly counseled that he work on getting his home machine replaced, he has not been using it for a year or a year and a half because it is broken. He thinks the mask here at the hospital is much more effective (11) Hypomagnesemia: Plan: replaced IV and normalized Plan DVT prophylaxisapixaban Admission and Anticipated Discharge Date Admission Date: November 23, 2023 Subjective today Jm is having more trouble with dyspnea at rest and wheezing, tripod despite neb this AM also increased alcohol withdrawal sx of anxiety, tremor, feels lightheaded possibly vertigo which is chronic for him low back and hip pain - chronic pain currently aggravated Physical Exam 2 Physical Exam: PHYSICAL EXAMINATION Last 24h vital signs reviewed, see documentation in flowsheet General: sitting up EOB looks uncomfortable HEENT: Normocephalic, atraumatic, pupils round and equal, sclerae anicteric, no conjunctival injection, moist mucus membranes Lungs: increased WOB, tripod position, breath sounds notable for exp wheezing all beavers and sounds tighter today, no rales. Heart: Regular rate and rhythm, no murmurs. large neck and srinivasan cannot see neck veins Abdomen: soft nontender nondistended bowel sounds present Extremities: Warm, dry, well-perfused. 1+ bilateral LE edema - improved Neuro: Alert and oriented x 4, face symmetric, moves 4 extremities well. skin dry and minimally tremulous right now Psych: anxious affect and normal behavior Skin: chronic rash both arms and shins, some are excoriations Results & Data Results & Data Vital Signs (Past 12 Hours) Vital Signs Temp Pulse Pulse Resp BP Pulse Ox Pulse Ox 11/26/23 09:36 100 H 18 95 11/26/23 08:27 83 18 95 11/26/23 07:48 37.0 C 97 H 21 116/74 95 11/26/23 07:36 90 20 93 11/26/23 07:00 95 11/26/23 02:49 36.5 C 84 18 137/93 94 11/26/23 00:54 91 H 21 95 11/26/23 00:54 91 H 21 95 11/25/23 22:34 36.6 C 92 H 18 143/91 H 93 11/25/23 22:25 104 H 24 94 O2 Del Method O2 Del Method O2 Flow Rate O2 Flow Rate 11/26/23 09:36 Nasal Cannula 2 11/26/23 08:27 2 11/26/23 07:48 Nasal Cannula 2 11/26/23 07:36 Nasal Cannula 2 11/26/23 07:00 Nasal Cannula 2 11/26/23 02:49 CPAP 11/26/23 00:54 BiPAP 1 11/26/23 00:54 1 11/25/23 22:34 CPAP 1 11/25/23 22:25 1 Laboratory Results 11/24/23 07:04 11/26/23 06:57 PG Care Time/CCT Total # of Minutes Spent Total Time Spent with Patient: I personally spent: 50 minutes today on clinical care activities including: reviewing chart notes and vital signs reviewing labs discussion with bedside RN, respiratory therapist discussion with urgent care examining and counseling the patient writing orders documentation Coding Level of Care Code 87435 SUB INP/OBS CARE 3/50MIN Diagnoses Acute hypoxic respiratory failure J96.01 Alcohol withdrawal F10.930 Complication of substance-induced condition: uncomplicated COPD exacerbation J44.1 Sinusitis J32.9 Person under investigation for COVID-19 Z20.822 Atrial fibrillation with rapid ventricular response I48.91 Tobacco abuse Z72.0 Hypertension I10 GERD (gastroesophageal reflux disease) K21.9 FELICIA (obstructive sleep apnea) G47.33 Hypomagnesemia E83.42 (2) Alcohol withdrawal Complication of substance-induced condition: uncomplicated Qualified Code(s): F10.930 - Alcohol use, unspecified with withdrawal, uncomplicated
[2023-11-26] MEDS: KETOROLAC 30 MG/ML VIAL IV ONE (10:38)
[2023-11-26] MEDS: methylPREDNISolone 40 MG in SYRINGE 0 ML IV ONE (11:39)
[2023-11-26 14:57] LABS: Base Excess VBG 6.4 mEq/L; HCO3 VBG 35 mmol/L; Oxygen Saturation VBG < 60.0 %; PCO2 VBG 64 mmHg (38-50); PO2 VBG 24 mmHg; pH VBG 7.34 (7.36-7.41)
--- NOTE | 2023-11-26 15:42 | Communication Note ---
Date of Service: November 26, 2023 Acute hypercarbic respiratory failure caused by acute exacerbation of COPD There is question of underlying HFpEF but I have diuresed him now euvolemic to dry Acute alcohol withdrawal with/without component of acute encephalopathy related to hypercarbia, delirium (meds: had gabapentin, lorazepam for withdrawal, steroids) Considered PE but has been on apixaban chronically and hypoxia is not main issue Bilateral low back/buttock pain seems to be flare of chronic issue - had toradol earlier today Looks worse this afternoon - has been restless, confused, remains very tight/wheezy VBG 7. Plan: Increased steroids/bronchodilators O2 sat goal 88-90% (has consistently been removing his O2) Gabapentin was stopped, lorazepam po PRN withdrawal symptoms Repeat vbg 7pm Repeat CXR ordered Discuss with pulm/critical care, high risk for further deterioration
[2023-11-26] MEDS: ALBUT/IPRATROP 3MG/0.5MG NEB 3 ML VIAL NEB SCH (15:44)
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
--- NOTE | 2023-11-26 16:10 | XRay Report ---
SINGLE VIEW CHEST CLINICAL HISTORY: Dyspnea. COPD exacerbation. FINDINGS: 2 AP, portable, upright chest radiographs are compared to study dated 11/23/2023. Correlatio n is made with chest CT dated 03/27/2023. The heart is enlarged. The pulmonary vasculature is noncong ested. Mild emphysema, chronic interstitial thickening, and elevation of the right hemidiaphragm is s imilar to previous. Scarring/atelectasis is noted at the lung bases. No airspace consolidation or lar ge pleural effusion is identified. No pneumothorax is seen. The skeletal structures are osteopenic. T here are chronic/healed left-sided rib fractures. Fusion hardware is seen in the lower cervical spine . IMPRESSION: Cardiomegaly and emphysema with no active disease in the chest. ACT 112: Negative or not required by law. Electronically signed by: Atilio Pace M.D. 11/26/2023 4:09 PM
[2023-11-26] MEDS: methylPREDNISolone 60 MG in SYRINGE 0 ML IV SCH (16:48)
[2023-11-26 19:23] LABS: Base Excess VBG 6.9 mEq/L; HCO3 VBG 34 mmol/L; Oxygen Saturation VBG < 60.0 %; PCO2 VBG 59 mmHg (38-50); PO2 VBG 25 mmHg; pH VBG 7.37 (7.36-7.41)
[2023-11-26] MEDS: FORMOTEROL 20 MCG/2 ML VIAL INH SCH (19:41)
[2023-11-26] MEDS: BUDESONIDE 0.5 MG/2 ML VIAL (PULMICORT) NEB SCH (19:41)
[2023-11-26] MEDS ORDERED: GABAPENTIN 400 MG CAP PO SCH (21:45)
[2023-11-26] MEDS: QUEtiapine FUMARATE 25 MG TABLET PO PRN (21:50)
[2023-11-27 08:08] LABS: Hemoglobin 13.8 g/dl (14.0-18.0); Mean Corpuscular Hemoglobin 25.7 pg (25.0-34.0); Mean Corpuscular Hgb Conc 30.7 g/dL (32.0-36.0); Mean Platelet Volume 9.6 fL (9.4-12.4); Nucleated RBC # (auto) 0.02 K/uL (0.00-0.12); Nucleated RBC % (auto) 0.1 %; Platelet Count 303 K/uL (130-400); RDW Coefficient of Variation 17.6 % (11.5-14.5); RDW Standard Deviation 52.8 fL (36.4-46.3); Red Blood Count 5.36 M/uL (4.70-6.10); White Blood Count 18.57 K/ul (4.8-10.8)
[2023-11-27 08:33] LABS: Calcium 9.3 mg/dl (8.6-10.3); Potassium 4.7 mmol/L (3.5-5.1)
[2023-11-27 08:38] LABS: Basophils # (auto) 0.02 K/uL (0.00-0.20); Basophils % (auto) 0.1 %; Immature Granulocytes # (auto) 0.37 K/uL (0.01-0.20); Lymphocytes # (auto) 0.84 K/uL (1.20-3.40); Lymphocytes % (auto) 4.5 %; Monocytes # (auto) 0.57 K/uL (0.11-0.59); Monocytes % (auto) 3.1 %; Neutrophils # (auto) 16.77 K/uL (1.40-6.50); Neutrophils % (auto) 90.3 %
[2023-11-27 08:41] LABS: Creatinine Clr Calc Pharmacy 171.2 ml/min; Est GFR (African American) 124.9 ml/min; Est GFR (Non-African American) 107.8 ml/min
--- NOTE | 2023-11-27 08:45 | Pulmonology Progress Note ---
Date of Service November 27, 2023 Assessment & Plan (1) Acute respiratory failure with hypoxia and hypercapnia: (2) SOB (shortness of breath): (3) COPD (chronic obstructive pulmonary disease): COPD type: unspecified COPD Qualified Code(s): J44.9 - Chronic obstructive pulmonary disease, unspecified (4) FELICIA (obstructive sleep apnea): (5) Tobacco abuse: (6) COPD exacerbation: (7) Multiple pulmonary nodules: Plan --Acute hypoxic hypercapnic respiratory failure Hypoxia is likely from COPD exacerbation Hypercapnia is from noncompliance with BiPAP Procalcitonin 0.05, respiratory bio fire negative for everything on 11/23/2023, r epeat COVID-19 PCR was negative on 11/25/2023 BNP 60 -- COPD with emphysema Seems to be CPFE Gold class E On Stiolto at home along with as needed albuterol. On discharge would recommend BrezTri or Trelegy For chronic bronchitis Mucinex-DM to be used on an as-needed basis 2D echo 03/09/2022: EF 65-70%, moderate concentric LVH, right ventricle not well visualized -- FELICIA Polysomnography 12/10/2021: AHI 36, titration with 15/10 -- Pulmonary nodules Largest being 3 mm in the right upper lobe, unchanged since [address] of the chest 03/2023 Patient had a CTA chest on 03/09/2022 which did not show any significant change in the nodularities. -- Elevated right hemidiaphragm Likely secondary to the cervical surgery that the patient had done Incentive spirometry will be helpful --Active smoker [id number] smoking history Currently smoking half a pack a day -- Occasional marijuana use Advised to quit -- Morbid obesity Advised to lose weight diet and exercise -- A. fib On apixaban Plan: In/out: -5.2 L since coming to the hospital Continue with performist and budesonide Continue with steroids. Recommend decreasing Solu-Medrol to 40 mg 3 times daily as of tomorrow Patient is tolerating BiPAP reasonably well. Continue with the same setting is getting good tidal volume with it. Unfortunately his BiPAP machine at home is not working. Recommend getting case management involved to see if they can resolve the issue before he goes home Case was discussed with RN as well as primary team Please note the above document was generated using voice recognition software. It may contain grammatical, syntax or spelling errors.Any formal questions or concerns about the content, text or information contained within the body of this dictation should be directly addressed to the provider for clarification. Admission and Anticipated Discharge Date Admission Date: November 23, 2023 Subjective Patient seen and examined at bedside. No acute distress, no adverse events overnight Saturating 97% on 2 L, I went down to 1 L He said he is feeling better Did use the BiPAP but not all night Coughing up clear phlegm. Denies any hemoptysis Review of Systems 2 Review of Systems: All systems reviewed & are unremarkable except as noted in Subjective Physical Exam 2 Physical Exam: Constitutional: No acute distress HEENT: EOMI, PERRLA Respiratory system: Decreased air entry bilaterally, no rhonchi, positive crackles bilateral lower lobes, minimal expiratory wheeze bilaterally, better than yesterday CVS: S1-S2 positive, no murmurs or gallops, tachycardia Abdomen: Soft, nontender, nondistended, positive bowel sounds x4, obese Extremities: +2 pulses bilaterally radialis/ dorsalis pedis, no cyanosis, +1 pitting edema bilateral lower extremity Neuro: Awake alert oriented x3 Psych: Normal mood and affect G/U: no [place] Skin: no rashes, warm and dry Lymphatic: no cervical or axillary lymphadenopathy Results & Data Results & Data Vital Signs (Past 12 Hours) Vital Signs Temp Pulse Pulse Resp BP Pulse Ox Pulse Ox 11/27/23 07:11 36.6 C 89 20 111/78 98 11/27/23 07:06 85 16 94 11/27/23 07:00 94 11/27/23 03:52 81 18 94 11/27/23 01:58 36.5 C 99 H 18 169/108 H 97 11/26/23 22:45 36.6 C 107 H 18 152/86 H 100 11/26/23 22:15 104 H 19 91 11/26/23 22:08 117 H O2 Del Method O2 Del Method O2 Flow Rate O2 Flow Rate 11/27/23 07:11 Nasal Cannula 2 11/27/23 07:06 Nasal Cannula 2 11/27/23 07:00 Nasal Cannula 2 11/27/23 03:52 Nasal Cannula 2 11/27/23 01:58 BiPAP 11/26/23 22:45 BiPAP 11/26/23 22:15 2 11/26/23 22:08 Laboratory Results 11/27/23 07:47 11/27/23 07:47 PG Care Time/CCT Total # of Minutes Spent Total Time Spent with Patient: Total time spent is greater than 50% in coordination of care (as documented) at patient's floor/unit and/or counseling patient: Coding Level of Care Code 72634 SUB INP/OBS CARE 3/50MIN Diagnoses Acute respiratory failure with hypoxia and hypercapnia J96.01; J96.02 SOB (shortness of breath) R06.02 COPD (chronic obstructive pulmonary disease) J44.9 COPD type: unspecified COPD FELICIA (obstructive sleep apnea) G47.33 Tobacco abuse Z72.0 COPD exacerbation J44.1 Multiple pulmonary nodules R91.8
--- NOTE | 2023-11-27 14:04 | Hospitalist Progress Note ---
Date of Service November 27, 2023 Assessment & Plan (1) Acute hypoxic respiratory failure: Plan: 63-year-old man with history of smoking, COPD, obstructive sleep apnea, obesity admitted with acute hypoxic respiratory failure likely due to COPD exacerbation. He does have some symptoms typical of a viral URI including some sinusitis symptoms, however, respiratory bio fire was negative on admission. Considered pneumonia however seems unlikely given negative procalcitonin, clear chest x-ray no fever, minimal leukocytosis. given his progressive dyspnea on exertion including orthopnea and leg edema consider component of heart failure improved significantly since yesterday but remains acutely ill warranting ongoing hospitalization - continue IV solumedrol 40 mg IV q6h, reduce tomorrow if stable - continue nebulized bronchodilators as well as Perforomist and budesonide. Dr. Eduardo recommended changing inhaler to BrezTri Trelegy for discharge - continue oral doxycycline and Mucinex - discussed with Dr. Eduardo, bedside RN doubt bacterial pneumonia. Changed cefepime to ceftriaxone to oral cefuroxime to cover acute sinusitis. procalcitonin is negative sputum with light normal rima - Afrin x 3 days for sinusitis, defer Flonase since on oral steroids - resp biofire neg and COVID test was negative x 2. - BNP is low making heart failure less likely however he is obese so can be false negative, obtained TTE which shows normal EF and has new finding of moderate pulmonary hypertension which likely relates to his COPD and obstructive sleep apnea - diuresed with IV lasix early in hospital course - did not clearly improve his pulmonary status - start lasix 40 mg po qAM - considered pulmonary embolism, seems unlikely since no chest pain and hypoxia is very mild also barely requiring oxygen at this time, leg edema is asymmetric probably because of old TKR on the left however I did obtain lower extremity duplex which is negative for DVT (2) Alcohol withdrawal: Plan: 6 shots of whiskey/day along with beer at times, possibly had mild alcohol withdrawal Early hospitalization treated with gabapentin protocol, oral lorazepam 11/25 -seems to have resolved -cont thiamine/folate (3) COPD exacerbation: Plan: see above Sees pulm Dr. Eduardo. PFT 11/03/22 reviewed (4) Sinusitis: Plan: Patient has been ill for 2-3 weeks with URI symptoms. see above (5) Atrial fibrillation with rapid ventricular response: Plan: RVR early in admission 2nd to stress of illness, albuterol - seems to have resolved TSH within normal limits continue digoxin and metoprolol Continue Eliquis 5mg BID (6) Tobacco abuse: Plan: Nicoderm patch 21mg/day. Smoking cessation counseled 11/23, he did buy a box of patches and plans to continue these at home (7) Hypertension: Plan: Continue metoprolol Resume ARB (8) GERD (gastroesophageal reflux disease): Plan: PPI twice daily. (9) FELICIA (obstructive sleep apnea): Plan: Outpatient BIPAP settings 18/01 per records. 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 -discussed with career transition specialist today - his resp supply company was identified and we requested they call him to set appointment for evaluation of his home machine which he reports is not working >1 year (10) Hypomagnesemia: Plan: replaced IV and normalized Plan BPH - flomax DVT prophylaxisapixaban Admission and Anticipated Discharge Date Admission Date: November 23, 2023 Subjective Significantly improved today less dyspneic much less restless more oriented was taking off his BiPAP frequently during the night Physical Exam 2 Physical Exam: PHYSICAL EXAMINATION Last 24h vital signs reviewed, see documentation in flowsheet General: sitting up in bed alert and calm looks much improved HEENT: Normocephalic, atraumatic, pupils round and equal, sclerae anicteric, no conjunctival injection, moist mucus membranes Lungs: mildly increased WOB, inspiratory and expiratory wheezes bilaterally all beavers however air movement significantly improved compared to yesterday Heart: Regular rate and rhythm, no murmurs. large neck and srinivasan cannot see neck veins Abdomen: soft nontender nondistended bowel sounds present Extremities: Warm, dry, well-perfused. 1+ bilateral LE edema - improved Neuro: Alert and oriented x 4, face symmetric, moves 4 extremities well. skin dry and no tremor Psych: normal affect and normal behavior Skin: chronic rash both arms and shins, some are excoriations Results & Data Results & Data Vital Signs (Past 12 Hours) Vital Signs Temp Pulse Resp BP Pulse Ox Pulse Ox O2 Del Method 11/27/23 11:08 36.4 C L 98 H 20 121/74 95 Nasal Cannula 11/27/23 10:50 79 18 92 Nasal Cannula 11/27/23 07:11 36.6 C 89 20 111/78 98 Nasal Cannula 11/27/23 07:06 85 16 94 Nasal Cannula 11/27/23 07:00 94 11/27/23 03:52 81 18 94 Nasal Cannula 11/27/23 01:58 36.5 C 99 H 18 169/108 H 97 BiPAP O2 Del Method O2 Flow Rate O2 Flow Rate 11/27/23 11:08 2 11/27/23 10:50 2 11/27/23 07:11 2 11/27/23 07:06 2 11/27/23 07:00 Nasal Cannula 2 11/27/23 03:52 2 11/27/23 01:58 Laboratory Results 11/27/23 07:47 11/27/23 07:47 PG Care Time/CCT Total # of Minutes Spent Total Time Spent with Patient: Total time spent is greater than 50% in coordination of care (as documented) at patient's floor/unit and/or counseling patient: Coding Level of Care Code 49937 SUB INP/OBS CARE 3/50MIN Diagnoses Acute hypoxic respiratory failure J96.01 Alcohol withdrawal F10.930 Complication of substance-induced condition: uncomplicated COPD exacerbation J44.1 Sinusitis J32.9 Atrial fibrillation with rapid ventricular response I48.91 Tobacco abuse Z72.0 Hypertension I10 GERD (gastroesophageal reflux disease) K21.9 FELICIA (obstructive sleep apnea) G47.33 Hypomagnesemia E83.42 (2) Alcohol withdrawal Complication of substance-induced condition: uncomplicated Qualified Code(s): F10.930 - Alcohol use, unspecified with withdrawal, uncomplicated
[2023-11-27] MEDS: GABAPENTIN 300 MG CAP PO SCH (21:34)
[2023-11-28 07:14] LABS: BUN Creatinine Ratio 36.2 (10-20); Est GFR (African American) 117.9 ml/min; Est GFR (Non-African American) 101.7 ml/min; Potassium 4.5 mmol/L (3.5-5.1)
[2023-11-28] MEDS ORDERED: DEXTROSE 50% 50 ML SYRINGE IV PRN (07:55)
[2023-11-28] MEDS ORDERED: GLUCAGON FOR INJ 1 MG VIAL SQ PRN (07:55)
[2023-11-28] MEDS ORDERED: CARBOHYDRATES FOR HYPOGLYCEMIA PO PRN (07:55)
[2023-11-28] MEDS ORDERED: GLUCOSE 40% GEL 15 GM TUBE PO PRN (07:55)
[2023-11-28] MEDS ORDERED: GLUCOSE 10 TAB/TUBE PO PRN (07:55)
[2023-11-28] MEDS: FUROSEMIDE 40 MG TAB PO SCH (08:52)
[2023-11-28] MEDS: LOSARTAN POTASSIUM 25 MG TAB PO SCH (08:53)
[2023-11-28] MEDS: INSULIN HUMAN NPH SC SCH (09:05)
[2023-11-28] MEDS: INSULIN ASPART PER UNIT CHARGE SC SCH (11:42)
[2023-11-28] MEDS: methylPREDNISolone 60 MG in SYRINGE 0 ML IV SCH (11:43)
--- NOTE | 2023-11-28 13:11 | Hospitalist Progress Note ---
Date of Service November 28, 2023 Assessment & Plan (1) Acute hypoxic respiratory failure: Plan: 63-year-old man with history of smoking, COPD, obstructive sleep apnea, obesity admitted with acute hypoxic respiratory failure likely due to COPD exacerbation. He does have some symptoms typical of a viral URI including some sinusitis symptoms, however, respiratory bio fire was negative on admission. Considered pneumonia however seems unlikely given negative procalcitonin, clear chest x-ray no fever, minimal leukocytosis. given his progressive dyspnea on exertion including orthopnea and leg edema consider component of heart failure Initially was improving but on 11/25 was extremely tight and had to be placed back on IV steroids, pulmonary consulted improved again since yesterday but remains acutely ill warranting ongoing hospitalization - continue IV solumedrol 60 mg IV reduced to q8h today, prednisone 40 mg tomorrow if still improving - continue nebulized bronchodilators as well as Perforomist and budesonide. Dr. Eduardo recommended changing inhaler to BrezTri Trelegy for discharge - continue oral doxycycline and Mucinex doubt bacterial pneumonia. Changed cefepime to ceftriaxone to oral cefuroxime to cover acute sinusitis. procalcitonin is negative sputum with light normal rima - Afrinx 3 days for sinusitis, defer Flonase since on oral steroids - resp biofire neg and COVID test was negative x 2. - BNP is low making heart failure less likely however he is obese so can be false negative, obtained TTE which shows normal EF and has new finding of moderate pulmonary hypertension which likely relates to his COPD and obstructive sleep apnea - diuresed with IV lasix early in hospital course - did not clearly improve his pulmonary status - continue lasix 40 mg po qAM, significant improvement in his leg edema which does bother him - considered pulmonary embolism, seems unlikely since no chest pain and hypoxia is very mild also barely requiring oxygen at this time, leg edema is asymmetric probably because of old TKR on the left however I did obtain lower extremity duplex which is negative for DVT (2) Hyperglycemia, drug-induced: Plan: BG >360 on chemistry panel this AM, caused by IV steroids -start AC HS glucose checks, carb controlled diet -NPH insulin 20 units daily, premeal aspart correctional dose -check A1c (3) Alcohol withdrawal: Plan: 6 shots of whiskey/day along with beer at times, possibly had mild alcohol withdrawal early this admission, treated with gabapentin protocol and few oral doses of lorazepam, resolved -cont thiamine/folate (4) COPD exacerbation: Plan: see above Sees pulm Dr. Eduardo. PFT 11/03/22 reviewed (5) Sinusitis: Plan: Patient has been ill for 2-3 weeks with URI symptoms. see above (6) Atrial fibrillation with rapid ventricular response: Plan: RVR early in admission 2nd to stress of illness, albuterol - seems to have resolved TSH within normal limits continue digoxin and metoprolol Continue Eliquis 5mg BID (7) Tobacco abuse: Plan: Nicoderm patch 21mg/day. Smoking cessation counseled 11/23, he did buy a box of patches and plans to continue these at home (8) Hypertension: Plan: Continue metoprolol, losartan (9) FELICIA (obstructive sleep apnea): Plan: Outpatient BIPAP settings 18/01 per records. now with moderate pulmonary hypertension on his TTE -continue Bipap in hospital, counseled benefits of [facility] bipap -discussed with director of career services - his resp supply company was identified and we requested they call him to set appointment for evaluation of his home machine which he reports is not working >1 year (10) Hypomagnesemia: Plan: replaced IV and normalized Plan BPH - flomax GERD - PPI DVT prophylaxisapixaban Admission and Anticipated Discharge Date Admission Date: November 23, 2023 Subjective definitely better today. less dyspneic, slept solid about 4 hours leg swelling much improved no more confusion episodes Physical Exam 2 Physical Exam: PHYSICAL EXAMINATION Last 24h vital signs reviewed, see documentation in flowsheet General: lying in bed, calm HEENT: Normocephalic, atraumatic, pupils round and equal, sclerae anicteric, no conjunctival injection, moist mucus membranes Lungs: mildly increased WOB persists, air movement reasonably good, much less wheezing, faint exp wheezes bilaterally posteriorly Heart: Regular rate and rhythm, no murmurs. large neck and srinivasan cannot see neck veins Abdomen: soft nontender nondistended bowel sounds present Extremities: Warm, dry, well-perfused. mild bilateral LE edema - continues improved Neuro: Alert and oriented x 4, face symmetric, moves 4 extremities well. skin dry and no tremor Psych: normal affect and normal behavior Skin: chronic rash both arms and shins, some are excoriations Results & Data Results & Data Vital Signs (Past 12 Hours) Vital Signs Temp Pulse Pulse Resp BP Pulse Ox Pulse Ox 11/28/23 11:56 73 16 95 11/28/23 11:16 36.6 C 94 H 22 157/95 H 94 11/28/23 07:22 36.4 C L 89 18 159/99 H 91 11/28/23 07:06 80 16 93 11/28/23 07:00 94 11/28/23 04:10 153/80 H 11/28/23 03:17 87 18 97 11/28/23 03:04 36.6 C 90 16 169/97 H 97 11/28/23 01:23 101 H O2 Del Method O2 Del Method O2 Flow Rate 11/28/23 11:56 Nasal Cannula 1.5 11/28/23 11:16 Nasal Cannula 2 11/28/23 07:22 Nasal Cannula 2 11/28/23 07:06 Nasal Cannula 2 11/28/23 07:00 Room Air 11/28/23 04:10 11/28/23 03:17 Nasal Cannula 1 11/28/23 03:04 Nasal Cannula 2.0 11/28/23 01:23 Laboratory Results 11/27/23 07:47 11/28/23 06:02 PG Care Time/CCT Total # of Minutes Spent Total Time Spent with Patient: Total time spent is greater than 50% in coordination of care (as documented) at patient's floor/unit and/or counseling patient: Coding Level of Care Code 81891 SUB INP/OBS CARE 2/35MIN Diagnoses Acute hypoxic respiratory failure J96.01 Hyperglycemia, drug-induced R73.9; T50.905A Alcohol withdrawal F10.930 Complication of substance-induced condition: uncomplicated COPD exacerbation J44.1 Sinusitis J32.9 Atrial fibrillation with rapid ventricular response I48.91 Tobacco abuse Z72.0 Hypertension I10 FELICIA (obstructive sleep apnea) G47.33 Hypomagnesemia E83.42 (3) Alcohol withdrawal Complication of substance-induced condition: uncomplicated Qualified Code(s): F10.930 - Alcohol use, unspecified with withdrawal, uncomplicated
[2023-11-28] MEDS: INSULIN HUMAN NPH SC ONE (13:30)
[2023-11-28 23:10] LABS: Hematocrit (blood only) 43.9 % (42.0-52.0); Hemoglobin 13.8 g/dl (14.0-18.0); Mean Corpuscular Hgb Conc 31.4 g/dL (32.0-36.0); Mean Corpuscular Volume 82.8 fL (80.0-100.0); Mean Platelet Volume 9.5 fL (9.4-12.4); Nucleated RBC # (auto) 0.03 K/uL (0.00-0.12); Nucleated RBC % (auto) 0.1 %; Platelet Count 359 K/uL (130-400); RDW Coefficient of Variation 17.2 % (11.5-14.5); RDW Standard Deviation 50.8 fL (36.4-46.3)
--- NOTE | 2023-11-28 23:12 | Communication Note ---
Date of Service: November 28, 2023 Alerted by nursing that patient having 10/10 cramping chest pain on the right side. Ordered EKG, CXR, trop, BNP, PT/PTT/INR, Mg, CMP, CBC. Resident to bed side. EKG without obvious ischemic changes. BP 130/82. Ordered 500 mL bolus and nitro SL x1. Significant improvement with nitro though BP decreased to 88/55. ASA 324 chew given. CP returned - ordered 2 mg morphine. Unfortunately IV site went bad and he likely did not receive any of the morphine. New access obtained and morphine given. Ordered additional neb and SoluMedrol dose. Patient also given IV famotidine and pantoprazole. CT Chest ordered as patient with adventitious breath sounds. Has a contrast allergy so unable to order CTA PE protocol. Had BLE dopplers earlier this admission which were negative for VTE. Patient more comfortable appearing when heading to CT. Patient is on Eliquis for a fib and had his 21:00 dose. Anti Xa - 0.77. Trop negative. Most likely severe bronchospasm as cause of CP, but will repeat trop in a few hours. If rising may want to start heparin, but not with current Anti Xa elevation. Likely would need to wait for morning when he's been 12 hours without DOAC. Ordered AM lipids in addition to ordered HbA1c for risk stratification. Patient here for acute hypoxic respiratory failure likely in the setting of COPD exacerbation +/- URI, pneumonia. On scheduled nebs, Q8H SoluMedrol 60 mg (was Q6H until today), cefuroxime. Was on doxycycline which has since been discontinued. Plan was to switch to PO pred 40 mg tomorrow. Will hold that dose and continue IV as patient significantly tight on exam. Case discussed with Dr. Cabrera who was also present at bedside. Resident Activity Tracking Resident Involvement: Resident Care Provided Care Provided: Adult Hospital Medicine
[2023-11-28] MEDS: MoRPHine SULFATE 2 MG/ML CARP IV STA ×2 (23:15→23:30)
[2023-11-28] MEDS: SODIUM CHLORIDE 0.9% 500 ML IV ONE (23:15)
[2023-11-28 23:23] LABS: Partial Thromboplastin Time 27 Seconds (21-31); Prothrombin Time 10.9 Seconds (9.0-12.0)
[2023-11-28 23:27] LABS: Basophils # (auto) 0.04 K/uL (0.00-0.20); Basophils % (auto) 0.2 %; Eosinophils # (auto) 1.66 K/uL (0.00-0.50); Eosinophils % (auto) 6.7 %; Immature Granulocytes # (auto) 0.48 K/uL (0.01-0.20); Immature Granulocytes % (auto) 1.9 %; Lymphocytes # (auto) 1.13 K/uL (1.20-3.40); Lymphocytes % (auto) 4.5 %; Monocytes # (auto) 1.26 K/uL (0.11-0.59); Monocytes % (auto) 5.1 %; Neutrophils # (auto) 20.33 K/uL (1.40-6.50); Neutrophils % (auto) 81.6 %; Polychromasia 2+
[2023-11-28] MEDS ORDERED: methylPREDNISolone 125 MG/2 ML VIAL IV STA (23:28)
[2023-11-28 23:29] LABS: Albumin Globulin Ratio 1.5 (0.9-2); Albumin Level 3.7 gm/dl (3.4-5.0); BUN Creatinine Ratio 39.7 (10-20); Bilirubin,Total 0.5 mg/dl (0.2-1.0); Calcium 9.4 mg/dl (8.6-10.3); Creatinine Clr Calc Pharmacy 151.2 ml/min; Est GFR (African American) 118.6 ml/min; Est GFR (Non-African American) 102.4 ml/min; Globulin 2.5 gm/dl (2.5-4.0); Potassium 4.5 mmol/L (3.5-5.1); Total Protein 6.2 gm/dl (6.0-8.3)
[2023-11-28] MEDS: ASPIRIN CHEW 324 MG PO ONE (23:30)
[2023-11-28 23:36] LABS: Troponin I High Sensitivity 3.7 pg/ml (0-20)
[2023-11-28] MEDS: PANTOprazole 40 MG in SYRINGE 0 ML IV ONE (23:45)
[2023-11-28] MEDS: methylPREDNISolone 60 MG in SYRINGE 0 ML IV ONE (23:45)
[2023-11-28] MEDS: FAMOTIDINE 20MG IV PUSH 20 MG/5 ML SYR IV ONE (23:45)
[2023-11-28 23:48] LABS: ANTI-Xa, UFH(UnfractionatedHep 0.77 IU/ml (0.3-0.7)
[2023-11-28] MEDS: ALBUT/IPRATROP 3MG/0.5MG NEB 3 ML VIAL NEB STA (23:49)
[2023-11-29] MEDS: NITROGLYCERIN SL 0.4 MG/TAB TAB ONE (00:05)
[2023-11-29] MEDS: SODIUM CHLORIDE 0.9% 1,000 ML IV SCH (00:10)
[2023-11-29] MEDS: MoRPHine SULFATE 2 MG/ML CARP ONE (00:11)
--- NOTE | 2023-11-29 01:25 | CT Scan Report ---
Exam(s): CT CHEST Without Contrast EXAM: CT Chest Without Intravenous Contrast CLINICAL HISTORY: Reason for exam: wheezing. TECHNIQUE: Axial computed tomography images of the chest without intravenous contrast. CTDI is 27.61 mGy and DLP is 979.42 mGy-cm. Automated exposure control was utilized for the study. A dose lowering technique was utilized adhering to the principles of ALARA. COMPARISON: No relevant prior studies available. FINDINGS: Lungs: Airspace consolidation in the LEFT upper lobe, consistent with mild pneumonia. No mass. Pleural space: Unremarkable. No pneumothorax. No significant effusion. Heart: Cardiomegaly. No significant pericardial effusion. No significant coronary artery calcifications. Bones/joints: Degenerative changes of the spine. No acute fracture. No dislocation. Old, nonunited left-sided rib fractures. Soft tissues: Unremarkable. Vasculature: Atherosclerotic changes of the aorta. No thoracic aortic aneurysm. Lymph nodes: Unremarkable. No enlarged lymph nodes. Liver: Hepatic steatosis. Gallbladder and bile ducts: Cholecystectomy. IMPRESSION: 1. Airspace consolidation in the LEFT upper lobe, consistent with mild pneumonia. 2. Hepatic steatosis. 3. Cholecystectomy. Electronically signed by: Gabriel Terry MD 11/29/23 01:23 AM
[2023-11-29] MEDS: methylPREDNISolone 60 MG in SYRINGE 0 ML IV SCH (05:58)
[2023-11-29 06:24] LABS: Hematocrit (blood only) 42.6 % (42.0-52.0); Hemoglobin 13.6 g/dl (14.0-18.0); Mean Corpuscular Hemoglobin 25.9 pg (25.0-34.0); Mean Corpuscular Hgb Conc 31.9 g/dL (32.0-36.0); Mean Corpuscular Volume 81.1 fL (80.0-100.0); Mean Platelet Volume 10.2 fL (9.4-12.4); Nucleated RBC # (auto) 0.03 K/uL (0.00-0.12); Nucleated RBC % (auto) 0.1 %; Platelet Count 372 K/uL (130-400); RDW Coefficient of Variation 17.2 % (11.5-14.5); RDW Standard Deviation 50.1 fL (36.4-46.3); Red Blood Count 5.25 M/uL (4.70-6.10)
[2023-11-29 06:53] LABS: Basophils # (auto) 0.06 K/uL (0.00-0.20); Basophils % (auto) 0.3 %; Immature Granulocytes # (auto) 0.53 K/uL (0.01-0.20); Immature Granulocytes % (auto) 2.3 %; Lymphocytes # (auto) 1.01 K/uL (1.20-3.40); Lymphocytes % (auto) 4.4 %; Monocytes # (auto) 0.84 K/uL (0.11-0.59); Monocytes % (auto) 3.6 %; Neutrophils # (auto) 20.66 K/uL (1.40-6.50); Neutrophils % (auto) 89.4 %
[2023-11-29 07:16] LABS: BUN Creatinine Ratio 42.4 (10-20); Calcium 8.6 mg/dl (8.6-10.3); Chol HDL Ratio 3.5 (0-5); Creatinine Clr Calc Pharmacy 175.6 ml/min; Est GFR (African American) 125.8 ml/min; Est GFR (Non-African American) 108.5 ml/min; Potassium 4.8 mmol/L (3.5-5.1)
--- NOTE | 2023-11-29 08:09 | XRay Report ---
XR chest 1V portable HISTORY: Atypical chest pain COMPARISON: Chest 11/26/2023. FINDINGS: No pneumothorax. No pleural effusions. The heart is top normal in size. Mild elevation of t he right hemidiaphragm remains unchanged. No evidence for pulmonary edema. Hazy left upper lobe airsp patrice opacity is noted. No acute fractures. IMPRESSION: Hazy left upper lobe airspace opacity consistent with a pneumonia. Follow-up chest x-ray one to 2 mon ths is recommended to ensure resolution. ACT 112: Negative or not required by law. Electronically signed by: Ayden Gates M.D. 11/29/2023 8:07 AM
[2023-11-29] MEDS: INSULIN HUMAN NPH SC SCH (08:26)
[2023-11-29 08:28] LABS: Estimated Average Glucose 160 mg/dl; Hemoglobin A1C 7.2 % (4.5-5.6)
[2023-11-29] MEDS: predniSONE 20 MG TAB PO SCH (08:31)
[2023-11-29 08:36] LABS: Troponin I High Sensitivity 3.4 pg/ml (0-20)
--- NOTE | 2023-11-29 16:12 | Hospitalist Progress Note ---
Date of Service November 29, 2023 Assessment & Plan (1) Acute hypoxic respiratory failure: Plan: 63-year-old man with history of smoking, COPD, obstructive sleep apnea, obesity admitted with acute hypoxic respiratory failure likely due to COPD exacerbation. He does have some symptoms typical of a viral URI including some sinusitis symptoms, however, respiratory bio fire was negative on admission and COVID was negative x 2. there may have been component of diastolic heart failure and he was diuresed early in hospital stay. Initially was improving but on 11/25 was extremely tight and had to be placed back on IV steroids, pulmonary consulted. had another episode 11/2424 overnight with right-sided chest pain attributed to bronchospasm clinically has been up and down with respect to dyspnea and his lung exam however still much better than on - continue IV solumedrol 60 mg IV every 6 hours, thus far has not tolerated reduction in steroids - continue nebulized bronchodilators as well as Perforomist and budesonide. Dr. Eduardo recommended changing inhaler to BrezTri Trelegy for discharge - continue oral doxycycline and Mucinex NAVEED pneumonia - seen on chest CT 11/27 I personally reviewed the CT films there is definite infiltrate but mild, barely visible on chest x-ray this morning - I do not think this is playing much of a role in his dyspnea currently which is mainly a COPD exacerbation however it may have triggered the exacerbation completed 5+ days of doxycycline and continue ceftriaxone -->cefuroxime day 7 to cover acute sinusitis or left upper lobe pneumonia. procalcitonin negative sputum with light normal rima - already had 3-day course of Afrin for sinusitis, defer Flonase since on oral steroids - BNP is low making heart failure less likely however he is obese so can be false negative, obtained TTE which shows normal EF and has new finding of moderate pulmonary hypertension which likely relates to his COPD and obstructive sleep apnea - diuresed with IV lasix early in hospital course - did not clearly improve his pulmonary status - continue lasix 40 mg po qAM, significant improvement in his leg edema which does bother him - considered pulmonary embolism, seems unlikely since chronically anticoagulated, no chest pain (until 11/27- episode) and hypoxia is very mild, leg edema is asymmetric probably because of old TKR on the left. I did obtain lower extremity duplex last week which is negative for DVT (2) COPD exacerbation: Plan: see above Sees pulm Dr. Eduardo. PFT 11/03/22 reviewed (3) Hyperglycemia, drug-induced: Plan: BG >360 on chemistry panel this AM, caused by IV steroids -start AC HS glucose checks, carb controlled diet -NPH insulin 20 units daily, premeal aspart correctional dose -check A1c (4) Diabetes type 2, controlled: Plan: Developed uncontrolled steroid-induced hyperglycemia. Checked A1c which is 7.2% consistent with type 2 diabetes, new diagnosis -prosthodontist/educator consulted -increase NPH to 40 units qAM and continue premeal aspart, tightened CF, CR -should be able to be controlled on metformin and diet once no longer on high dose steroids (5) Alcohol withdrawal: Plan: 6 shots of whiskey/day along with beer at times, possibly had mild alcohol withdrawal early this admission, treated with gabapentin protocol and few oral doses of lorazepam, resolved -cont thiamine/folate (6) Sinusitis: Plan: Patient has been ill for 2-3 weeks with URI symptoms. see above (7) Atrial fibrillation with rapid ventricular response: Plan: RVR early in admission 2nd to stress of illness, albuterol - seems to have resolved, intermittent mild elevation TSH within normal limits continue digoxin and metoprolol Continue Eliquis 5mg BID (8) Tobacco abuse: Plan: Nicoderm patch 21mg/day. Smoking cessation counseled 11/23, he did buy a box of patches and plans to continue these at home (9) Hypertension: Plan: Continue metoprolol, losartan (10) FELICIA (obstructive sleep apnea): Plan: Outpatient BIPAP settings 18/01 per records. now with moderate pulmonary hypertension on his TTE -continue Bipap in hospital, counseled benefits of rodent exterminator bipap -discussed with lead care manager - his resp supply company was identified and we requested they call him to set appointment for evaluation of his home machine which he reports is not working >1 year (11) Hypomagnesemia: Plan BPH - flomax GERD - PPI hypomagnesemia - replaced IV and normalized right sided chest pain episode overnight 11/27 - see communication note. resolved. may have been bronchospasm with anxiety or other benign cause like MSK. Ruled out for ACS and PE unlikely as discussed above DVT prophylaxisapixaban Admission and Anticipated Discharge Date Admission Date: November 23, 2023 Subjective Jm had a bad night he had 2 episodes of severe right-sided chest pain sort of his whole right hemithorax. Evaluated by resident overnight had EKG negative troponins, noncontrast chest CT which showed a mild left upper lobe pneumonia infiltrate at otherwise unremarkable. He is chronically anticoagulated with negative lower extremity duplex on admission. steroids were increased as it was thought to be possibly bronchospasm related pain pain has resolved but he is nervous about it continues to have dyspnea with minimal exertion Physical Exam 2 Physical Exam: PHYSICAL EXAMINATION Last 24h vital signs reviewed, see documentation in flowsheet General: sitting up in bed looks anxious HEENT: Normocephalic, atraumatic, pupils round and equal, sclerae anicteric, no conjunctival injection, moist mucus membranes Lungs: mildly increased WOB persists, air movement still reasonably good, some coarse breath sounds on the right upper right lower beavers, expiratory wheezes on left, overall still sounding better Heart: Regular rate and rhythm, no murmurs. large neck and srinivasan cannot see neck veins Abdomen: soft nontender nondistended bowel sounds present Extremities: Warm, dry, well-perfused. 1+ bilateral LE edema Neuro: Alert and oriented x 4, face symmetric, moves 4 extremities well. skin dry and no tremor Psych: anxious affect and normal behavior Skin: chronic rash both arms and shins, some are excoriations Results & Data Results & Data Vital Signs (Past 12 Hours) Vital Signs Temp Pulse Resp BP Pulse Ox O2 Del Method O2 Flow Rate 11/29/23 15:00 86 24 94 Nasal Cannula 1 11/29/23 11:18 100 H 24 93 Nasal Cannula 1 11/29/23 10:50 36.4 C L 105 H 19 131/79 95 Nasal Cannula 1 11/29/23 07:16 85 20 93 Nasal Cannula 1 11/29/23 06:54 36.3 C L 88 18 145/106 H 94 Nasal Cannula 1 Laboratory Results 11/29/23 05:15 11/29/23 05:15 high-sensitivity troponin last night and this morning within normal limits ECG Additional Comments: I personally reviewed the EKG tracing from overnight shows atrial fibrillation with nonspecific lateral ST changes, mostly flattening PG Care Time/CCT Total # of Minutes Spent Total Time Spent with Patient: Total time spent is greater than 50% in coordination of care (as documented) at patient's floor/unit and/or counseling patient: Coding Level of Care Code 38378 SUB INP/OBS CARE MIN Diagnoses Acute hypoxic respiratory failure J96.01 COPD exacerbation J44.1 Hyperglycemia, drug-induced R73.9; T50.905A Diabetes type 2, controlled E11.9 Alcohol withdrawal F10.930 Complication of substance-induced condition: uncomplicated Sinusitis J32.9 Atrial fibrillation with rapid ventricular response I48.91 Tobacco abuse Z72.0 Hypertension I10 FELICIA (obstructive sleep apnea) G47.33 Hypomagnesemia E83.42 (5) Alcohol withdrawal Complication of substance-induced condition: uncomplicated Qualified Code(s): F10.930 - Alcohol use, unspecified with withdrawal, uncomplicated
[2023-11-30] MEDS: dilTIAZem HCL 240 MG CAPCR PO SCH (08:20)
[2023-11-30] MEDS: INSULIN HUMAN NPH SC SCH (08:24)
--- NOTE | 2023-11-30 11:04 | Hospitalist Progress Note ---
Date of Service November 30, 2023 Assessment & Plan (1) Acute hypoxic respiratory failure: Plan: 63-year-old man with history of smoking, COPD, obstructive sleep apnea, obesity admitted with acute hypoxic respiratory failure likely due to COPD exacerbation. He did have some symptoms typical of a viral URI including some sinusitis symptoms, however, respiratory bio fire was negative on admission and COVID was negative x 2. there may have been component of diastolic heart failure and he was diuresed early in hospital stay. Initially was improving but on 11/25 was extremely tight and had to be placed back on IV steroids, pulmonary consulted. had another episode 11/2424 overnight with right-sided chest pain attributed to bronchospasm clinically has been up and down with respect to dyspnea and his lung exam however still much better than on - continue IV solumedrol decrease to 40 IV q8h, thus far has not tolerated reduction in steroids for any significant duration - continue nebulized bronchodilators as well as Perforomist and budesonide. Dr. Eduardo recommended changing inhaler to BrezTri Trelegy for discharge - completed a course of oral doxycycline. cont Mucinex - changed metoprolol to diltiazem as a trial to see whether getting off B- tania alleviates any of his acute on chronic symptoms NAVEED pneumonia - seen on chest CT 11/27 I personally reviewed the CT films there is definite infiltrate but mild, barely visible on chest x-ray this morning - I do not think this is playing much of a role in his dyspnea currently which is mainly a COPD exacerbation however it may have triggered the exacerbation completed 5+ days of doxycycline and continue ceftriaxone -->cefuroxime day 11/13 to cover acute sinusitis or left upper lobe pneumonia. procalcitonin negative sputum with light normal rima - already had 3-day course of Afrin for sinusitis, defer Flonase since on oral steroids - BNP is low making heart failure less likely however he is obese so can be false negative, obtained TTE which shows normal EF and has new finding of moderate pulmonary hypertension which likely relates to his COPD and obstructive sleep apnea - diuresed with IV lasix early in hospital course - did not clearly improve his pulmonary status - continue lasix 40 mg po qAM, significant improvement in his leg edema which does bother him - considered pulmonary embolism, seems unlikely since chronically anticoagulated, no chest pain (until 11/27-25 episode) and hypoxia is very mild, leg edema is asymmetric probably because of old TKR on the left. I did obtain lower extremity duplex last week which is negative for DVT (2) COPD exacerbation: Plan: see above Sees pulm Dr. Eduardo. PFT 11/03/22 reviewed (3) Diabetes type 2, controlled: Plan: Developed uncontrolled steroid-induced hyperglycemia. Checked A1c which is 7.2% consistent with type 2 diabetes, new diagnosis -invoice coder consulted -increased NPH to 40 units qAM and continue premeal aspart, tightened CF, CR - monitor these adjustments made last night -should be able to be controlled on metformin and diet once no longer on high dose steroids With diabetes and severe obesity BMI 36 complicated by FELICIA, afib, lung disease, pulmonary hypertension, probable underlying HFpEF he would significantly benefit from GLP-1 agonist -discussed with him and he should follow this up with his PCP (4) Alcohol withdrawal: Plan: 6 shots of whiskey/day along with beer at times, possibly had mild alcohol withdrawal early this admission, treated with gabapentin protocol and few oral doses of lorazepam, resolved -cont thiamine/folate (5) Sinusitis: Plan: Patient has been ill for 2-3 weeks with URI symptoms. see above (6) Atrial fibrillation with rapid ventricular response: Plan: RVR early in admission 2nd to stress of illness, albuterol - seems to have resolved, intermittent mild elevation TSH within normal limits continue digoxin and metoprolol was replaced with diltiazem Continue Eliquis 5mg BID (7) Tobacco abuse: Plan: Nicoderm patch 21mg/day. Smoking cessation counseled 11/23, he did buy a box of patches and plans to continue these at home (8) Hypertension: Plan: Continue metoprolol, losartan (9) FELICIA (obstructive sleep apnea): Plan: Outpatient BIPAP settings 18/01 per records. now with moderate pulmonary hypertension on his TTE -continue Bipap in hospital, counseled benefits of earth sciences professor bipap -discussed with health care administrator - his resp supply company was identified and we requested they call him to set appointment for evaluation of his home machine which he reports is not working >1 year (10) Hypomagnesemia: Plan BPH - flomax GERD - PPI hypomagnesemia - replaced IV and normalized right sided chest pain episode overnight 11/27 - see communication note. resolved. may have been bronchospasm with anxiety or other benign cause like MSK. Ruled out for ACS and PE unlikely as discussed above DVT prophylaxisapixaban Admission and Anticipated Discharge Date Admission Date: November 23, 2023 Subjective Jm did ok last night without any crises. He did sleep. Still dyspneic and feels tight at rest. Physical Exam Physical Exam: PHYSICAL EXAMINATION Last 24h vital signs reviewed, see documentation in flowsheet General: sitting up in bed looks anxious HEENT: Normocephalic, atraumatic, pupils round and equal, sclerae anicteric, no conjunctival injection, moist mucus membranes Lungs: continues to have increased WOB at rest and with talking, coarse BS on right but improved since yest, exp wheeze throughout, fair air movement Heart: Regular rate and rhythm, no murmurs. large neck and srinivasan cannot see neck veins Abdomen: soft nontender nondistended bowel sounds present Extremities: Warm, dry, well-perfused. 1+ bilateral LE edema Neuro: Alert and oriented x 4, face symmetric, moves 4 extremities well. skin d ry and no tremor Psych: normal affect and normal behavior Skin: chronic rash both arms and shins, some are excoriations Results & Data Results & Data Vital Signs (Past 12 Hours) Vital Signs Temp Pulse Pulse Resp BP Pulse Ox O2 Del Method 11/30/23 08:00 Nasal Cannula 11/30/23 07:26 97 H 18 94 Nasal Cannula 11/30/23 07:10 36.4 C L 97 H 18 142/94 H 95 Nasal Cannula 11/30/23 07:00 11/30/23 03:02 36.6 C 98 H 18 149/85 H 97 BiPAP 11/30/23 02:34 101 H 15 96 11/30/23 02:34 101 H 14 96 BiPAP 11/29/23 23:55 106 H 11/29/23 23:45 109 H 19 91 11/29/23 23:45 109 H 19 91 BiPAP 11/29/23 23:03 36.7 C 98 H 18 144/93 H 94 Nasal Cannula O2 Del Method O2 Flow Rate 11/30/23 08:00 2 11/30/23 07:26 1 11/30/23 07:10 1 11/30/23 07:00 Nasal Cannula 11/30/23 03:02 11/30/23 02:34 3 11/30/23 02:34 3 11/29/23 23:55 11/29/23 23:45 3 11/29/23 23:45 3 11/29/23 23:03 1 PG Care Time/CCT Total # of Minutes Spent Total Time Spent with Patient: Total time spent is greater than 50% in coordination of care (as documented) at patient's floor/unit and/or counseling patient: Coding Level of Care Code 16965 SUB INP/OBS CARE 3/50MIN Diagnoses Acute hypoxic respiratory failure J96.01 COPD exacerbation J44.1 Diabetes type 2, controlled E11.9 Alcohol withdrawal F10.930 Complication of substance-induced condition: uncomplicated Sinusitis J32.9 Atrial fibrillation with rapid ventricular response I48.91 Tobacco abuse Z72.0 Hypertension I10 FELICIA (obstructive sleep apnea) G47.33 Hypomagnesemia E83.42 (4) Alcohol withdrawal Complication of substance-induced condition: uncomplicated Qualified Code(s): F10.930 - Alcohol use, unspecified with withdrawal, uncomplicated
[2023-11-30] MEDS: methylPREDNISolone 40 MG in SYRINGE 0 ML IV SCH (12:12)
[2023-11-30] MEDS: MoRPHine SULFATE 4 MG/ML 1 ML CARP\\VIAL IV STA (12:20)
[2023-11-30] MEDS: ALUMINUM/MAGNESIUM SUSP 30 ML UDC PO STA (12:29)
[2023-11-30] MEDS: dilTIAZem HCl 5 MG/ML 5 ML VIAL IV STA (12:35)
--- NOTE | 2023-11-30 12:37 | Communication Note ---
Date of Service: November 30, 2023 Called urgently for chest pain Developed near the end of his lunch Pain is lower substernal, right epigastric, slightly RUQ. He is tender in upper epigastric and RUQ nearer to midline just below the rib margin Lungs are coarse and exp wheezes throughout but air movement is pretty good Tachycardic at 150 very anxious EKG - personally reviewed tracing - with rapid Afib at 150, ST depressions V3-6, I, II, F likely rate related CXR pending A/P: chest / epigastric / right sided pain and upper abdominal tenderness - occurred after eating - he says this is similar to episode that happened Thursday overnight. rapid atrial fibrillation pain is reproducible with palpation of epigastric area as above, seems likely to be GI in origin. Also we've been holding his PPI because of drug interaction with oral cephalosporin I think the rapid AF was precipitated by pain, anxiety, distress rather than the other way around, however, onset of rapid AF could cause chest pain suspicion for PE and ACS is low -diltiazem 10 mg IV x 1 and increase oral diltiazem to 300 mg. dilt drip if HR not coming down with bolus, treatment of pain and anxiety. continue apixaban -follow up CXR and repeat EKG once rate better controlled -serial troponin -check CMP and lipase. he has had cholecystectomy in past -no change to pulmonary meds -SL NTG given, morphine 4 mg IV x 1 -resume PPI - IV bid start now, GI cocktail
[2023-11-30 13:18] LABS: Albumin Globulin Ratio 1.3 (0.9-2); Albumin Level 3.4 gm/dl (3.4-5.0); BUN Creatinine Ratio 36.9 (10-20); Bilirubin,Total 0.8 mg/dl (0.2-1.0); Calcium 8.4 mg/dl (8.6-10.3); Creatinine Clr Calc Pharmacy 159.3 ml/min; Est GFR (African American) 120.8 ml/min; Est GFR (Non-African American) 104.3 ml/min; Globulin 2.7 gm/dl (2.5-4.0); Potassium 4.2 mmol/L (3.5-5.1); Total Protein 6.1 gm/dl (6.0-8.3)
[2023-11-30 13:23] LABS: Troponin I High Sensitivity 4.1 pg/ml (0-20)
--- NOTE | 2023-11-30 13:49 | Communication Note ---
Date of Service: November 30, 2023 Reviewed labs, CXR HS trop remains negative CXR - I reviewed film - with some R base atelectasis, looks hypoinflated, radiologist interp pending Other labs unremarkable: CMP with ALT mild elevation only. bili/AST/alk phos unremarkable, no e/o hepatobiliary process, lipase normal
[2023-11-30] MEDS: PANTOprazole 40 MG in SYRINGE 0 ML IV SCH (13:50)
[2023-11-30] MEDS: INSULIN HUMAN NPH SC STA (13:50)
[2023-11-30] MEDS: dilTIAZem HCL 30 MG TAB PO SCH (14:02)
--- NOTE | 2023-11-30 14:14 | XRay Report ---
XR chest 1V portable HISTORY: chest pain COMPARISON: Chest 11/28/2023. FINDINGS: Subtle hazy left upper lobe airspace opacity is again noted. No pneumothorax. No pleural ef fusions. The heart remains enlarged. Right basilar linear density consistent with subsegmental atelec tasis. Cervical spinal fusion hardware again noted. Old left lower rib fractures are again noted. IMPRESSION: Subtle hazy left upper lobe airspace opacity is again noted and favors a pneumonia. ACT 112: Negative or not required by law. Electronically signed by: Ayden Gates M.D. 11/30/2023 2:12 PM
[2023-12-01] MEDS: dilTIAZem HCL 300 MG CAPCR PO SCH (07:55)
[2023-12-01] MEDS: INSULIN HUMAN NPH SC SCH (08:01)
[2023-12-01 08:34] LABS: Hematocrit (blood only) 43.5 % (42.0-52.0); Hemoglobin 13.5 g/dl (14.0-18.0); Mean Corpuscular Hemoglobin 25.5 pg (25.0-34.0); Mean Corpuscular Volume 82.1 fL (80.0-100.0); Nucleated RBC # (auto) 0.04 K/uL (0.00-0.12); Nucleated RBC % (auto) 0.2 %; Platelet Count 387 K/uL (130-400); RDW Coefficient of Variation 17.3 % (11.5-14.5); RDW Standard Deviation 51.2 fL (36.4-46.3)
[2023-12-01 09:01] LABS: Calcium 8.2 mg/dl (8.6-10.3); Creatinine Clr Calc Pharmacy 145.8 ml/min; Est GFR (African American) 116.5 ml/min; Est GFR (Non-African American) 100.6 ml/min
--- NOTE | 2023-12-01 20:46 | Hospitalist Progress Note ---
Date of Service December 01, 2023 Assessment & Plan (1) Acute hypoxic respiratory failure: Plan: 2nd to COPD exacerbation, NAVEED pneumonia, +/- acute diastolic CHF - but latter unlikely. Slowly improving, and O2 requirement at rest now resolved. [employer] respiratory panel from admission - negative. Repeat COVID testing 48 hrs post-admission - also negative. (2) COPD exacerbation: Plan: Improving. Can wean IV solumedrol from q8h dosing to BID dosing. Continue duonebs Q4h. Cont pulm toilet with flutter valve + incentive spirometry. Cont mucinex 1200mg BID. Cont abx for NAVEED pneumonia/sinusitis. Cont formoterol BID. Cont pulmicort nebs BID. Patient needs tobacco cessation. Of note - sputum cx this admission was negative. Will need [facility] f/u post-d/c. Good pulm rehab candidate - patient interested. (3) Sinusitis: Plan: Finish abx course with cefuroxime BID. Day #7 of 10 today. Improving. (4) Person under investigation for COVID-19: Plan: COVID ruled out -- neg COVID PCR testing x 2 this admission No isolation needs at this time (5) Atrial fibrillation with rapid ventricular response: Plan: Previous provider started diltiazem in [place] of metoprolol. Remains on daily digoxin. Continue Eliquis 5mg BID. Rates at rest largely ok, but remains poorly controlled with walking -- some of which is physiologic in response to severe COPD flare. Cont to monitor. (6) Alcohol dependence: Plan: 6 shots of whiskey/day along with beer at times. No prior h/o alcohol withdrawal. Had gabapentin protocol earlier this admission. Now weaned off. No evidence of etoh withdrawal today. Cont Thiamine 100mg daily + folic acid 1mg daily. (7) Tobacco abuse: Plan: Nicoderm patch 21mg/day. Smoking cessation. (8) Hypertension: Plan: Continue diltiazem. Continue flomax. Continue losartan. (9) GERD (gastroesophageal reflux disease): Plan: PPI twice daily. (10) FELICIA (obstructive sleep apnea): Plan: Outpatient BIPAP settings 15/10 per records. (11) DVT prophylaxis: Plan: Eliquis 5mg BID. (12) Hypomagnesemia: Plan: repleted resolved (13) Diabetes mellitus type 2, uncontrolled: Plan: a1c 7.2% but uncontrolled BSGs due to steroids is on NPH qam + novolog SSI change NPH to lantus; start 25units QAM tomorrow tighten novolog goal range add metformin xr 500mg BID w/ meals starting tomorrow appreciate DM educator assistance Plan slowly progressing Admission and Anticipated Discharge Date Admission Date: November 23, 2023 Subjective I had staff walk him in hallway - sats dropped to 88% in RA; HRs very fast -- 150s to 170s at peak, but most rates much lower he is feeling better - but still with dyspnea with walking cough is improved; less congestion; less sputum sinus congestion improved; less nasal discharge eating is robust he asks about over-arching plan for him, when he can go home, diabetes, etc Review of Systems Review of Systems: gen - no fevers or chills cv - no chest pain; edema improved pulm - see HPI GI - no N/V Physical Exam Physical Exam: gen - obese, coughing, but no distress; pleasant neck - no JVD mouth - MMM, no thrush heart - irregularly irregular, tachy, s1 s2, no murmur lungs - bl wheezes all lung segments; no rales; no distress or increased work of breathing abd - soft NT ND BS+ ext - trace edema, pulses 2+ b/l Results & Data Results & Data Vital Signs (Past 12 Hours) Vital Signs Temp Pulse Pulse Resp BP Pulse Ox O2 Del Method 12/01/23 20:00 115 H 20 94 Room Air 12/01/23 19:52 Room Air 12/01/23 19:52 36.6 C 91 H 18 150/82 H 94 Room Air 12/01/23 15:58 36.3 C L 108 H 17 126/69 92 Room Air 12/01/23 15:22 98 H 17 98 Room Air 12/01/23 15:04 91 H 12/01/23 14:11 91 H 12/01/23 11:06 92 H 19 94 Room Air 12/01/23 10:59 36.3 C L 81 17 133/71 96 Room Air FiO2 12/01/23 20:00 12/01/23 19:52 12/01/23 19:52 12/01/23 15:58 12/01/23 15:22 21 12/01/23 15:04 12/01/23 14:11 12/01/23 11:06 21 12/01/23 10:59 Laboratory Results Laboratory Results - last 24 hr 12/01/23 12/01/23 12/01/23 07:08 08:13 11:02 WBC 21.70 H RBC 5.30 Hgb 13.5 L Hct 43.5 MCV 82.1 MCH 25.5 MCHC 31.0 L RDW Std Deviation 51.2 H RDW Coeff of Brandon 17.3 H Plt Count 387 MPV 10.0 Absolute Nucleated RBC 0.04 Nucleated RBC % (auto) 0.2 Sodium 137 Potassium 4.0 Chloride 98 Carbon Dioxide 30 Anion Gap 9 BUN 27 H Creatinine 0.71 Est Cr Clr Drug Dosing 145.8 Est GFR ( Amer) 116.5 Est GFR (Non-Af Amer) 100.6 BUN/Creatinine Ratio 38.0 H Glucose 317 H* POC Glucose 264 H 238 H Calcium 8.2 L 12/01/23 12/01/23 16:03 20:05 WBC RBC Hgb Hct MCV MCH MCHC RDW Std Deviation RDW Coeff of Brandon Plt Count MPV Absolute Nucleated RBC Nucleated RBC % (auto) Sodium Potassium Chloride Carbon Dioxide Anion Gap BUN Creatinine Est Cr Clr Drug Dosing Est GFR ( Amer) Est GFR (Non-Af Amer) BUN/Creatinine Ratio Glucose POC Glucose 148 H 186 H Calcium PG Care Time/CCT Total # of Minutes Spent Total Time Spent with Patient: Total time spent is greater than 50% in coordination of care (as documented) at patient's floor/unit and/or counseling patient: Coding Level of Care Code 03098 SUB INP/OBS CARE 3/50MIN Diagnoses Acute hypoxic respiratory failure J96.01 COPD exacerbation J44.1 Sinusitis J32.9 Person under investigation for COVID-19 Z20.822 Atrial fibrillation with rapid ventricular response I48.91 Alcohol dependence F10.20 Tobacco abuse Z72.0 Hypertension I10 GERD (gastroesophageal reflux disease) K21.9 FELICIA (obstructive sleep apnea) G47.33 DVT prophylaxis Z29.9 Hypomagnesemia E83.42 Diabetes mellitus type 2, uncontrolled
--- NOTE | 2023-12-02 05:54 | Electrocardiogram Report ---
Test Reason : Blood Pressure : */* mmHG Vent. Rate : 129 BPM Atrial Rate : 85 BPM P-R Int : * ms QRS Dur : 100 ms QT Int : 348 ms P-R-T Axes : * 9 178 degrees QTcB Int : 509 ms Atrial fibrillation with rapid ventricular response Incomplete right bundle branch block Abnormal ECG When compared with ECG of 28-Nov-2023 22:44, ST more depressed Lateral leads T wave inversion now evident in Inferior leads Confirmed by Kareem Urena ([id number]) on 12/02/2023 5:53:54 AM Referred By: REFERRED SELF Confirmed By: Kareem Urena
[2023-12-02 08:00] LABS: BUN Creatinine Ratio 36.8 (10-20); Calcium 8.3 mg/dl (8.6-10.3); Creatinine Clr Calc Pharmacy 152.2 ml/min; Est GFR (African American) 118.6 ml/min; Est GFR (Non-African American) 102.4 ml/min; Magnesium 2.1 mg/dl (1.7-2.4); Potassium 4.3 mmol/L (3.5-5.1)
[2023-12-02] MEDS: metFORMIN HCL ER 500 MG TABCR PO SCH (08:04)
[2023-12-02] MEDS: methylPREDNISolone 40 MG in SYRINGE 0 ML IV SCH (08:07)
[2023-12-02] MEDS: LANTUS PER UNIT CHARGE SQ SCH (08:08)
--- NOTE | 2023-12-02 15:41 | Electrocardiogram Report ---
Test Reason : Blood Pressure : */* mmHG Vent. Rate : 95 BPM Atrial Rate : 84 BPM P-R Int : * ms QRS Dur : 100 ms QT Int : 360 ms P-R-T Axes : * 15 114 degrees QTcB Int : 452 ms Atrial fibrillation Nonspecific ST and T wave abnormality RSR' or QR pattern in V1 suggests right ventricular conduction delay Abnormal ECG When compared with ECG of 23-Nov-2023 07:03, LAHB is no longer present Confirmed by Jayne Maloney (Allan) on 11/29/2023 6:59:28 PM Referred By: REFERRED SELF Confirmed By: Jayne Maloney
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
[2023-12-02] MEDS: PNEUMOCOCCAL VACCINE (PCV20) 20-VAL CONJ-DIP CRM/PF 0.5 ML SYR IM ONE (19:54)
[2023-12-03] MEDS ORDERED: methylPREDNISolone 125 MG/2 ML VIAL IV STA (00:15)
[2023-12-03] MEDS: NITROGLYCERIN SL 0.4 MG/TAB TAB SL PRN (00:22)
--- NOTE | 2023-12-03 00:29 | Magnetic Resonance Report ---
Exam(s): MRI HEAD Without Contrast EXAM: MR Head Without Intravenous Contrast CLINICAL HISTORY: daily headaches, dizziness. TECHNIQUE: Magnetic resonance images of the head/brain without intravenous contrast in multiple planes. COMPARISON: No relevant prior studies available. FINDINGS: Brain: Age-appropriate central and peripheral atrophy. No acute stroke. Small posterior parasagittal right parietal cortical probable infarct near the vertex (series 4 image 15). No acute hemorrhage. No abnormal extra-axial fluid collection. Ventricles: No midline shift. No ventriculomegaly. Bones/joints: Unremarkable. No acute fracture. Sinuses: Unremarkable as visualized. No acute sinusitis. Mastoid air cells: Unremarkable as visualized. No mastoid effusion. Orbits: Unremarkable as visualized. IMPRESSION: No acute stroke or hemorrhage. Small remote right parietal cortical infarct. Electronically signed by: Zack Coronado M.D. 12/03/23 00:28 AM
[2023-12-03] MEDS: FAMOTIDINE 20MG IV PUSH 20 MG/5 ML SYR IV STA (00:34)
[2023-12-03] MEDS: methylPREDNISolone 40 MG in SYRINGE 0 ML IV STA (00:34)
[2023-12-03] MEDS: diazePAM 5 MG/ML 10ML VIAL IV ONE (00:34)
[2023-12-03] MEDS: SODIUM CHLORIDE 0.9% 500 ML IV ONE (00:35)
[2023-12-03] MEDS: diazePAM 5 MG/ML 10ML VIAL ONE (00:35)
[2023-12-03] MEDS: MoRPHine SULFATE 2 MG/ML CARP ONE (00:35)
[2023-12-03] MEDS: diazePAM 5 MG/ML 10ML VIAL IV STA (00:38)
[2023-12-03] MEDS: MoRPHine SULFATE 2 MG/ML CARP IV STA (00:43)
[2023-12-03] MEDS: MAGNESIUM SULFATE / D5W 1 GM/100 ML BAG IV SCH (00:44)
--- NOTE | 2023-12-03 00:46 | Communication Note ---
Date of Service: December 03, 2023 Alerted by nursing that patient having CP. Resident to bedside. Unable to obtain EKG as leads keep popping off from breathing/sweating. Patient belly breathing and obviously in significant discomfort. Pain located inferior to the sternum with radiation into the right abdomen. No distress. No improvement with nitro. Minimal improvement with morphine. Did give 500 mL bolus as patient previously became hypotensive with nitro. Patient appears to have a significant muscle spasm that is palpable directly inferior to the sternum. Patient visibly more comfortable after 5 mg of Valium. Mag load with 2 g and repeat Valium dose 5 mg. Patient is on Flexeril 5 mg TID. Gave a one time spot dose as well. Ordered famotidine and methylpred as well as he had improvement with these medications during a prior episode of CP that was likely broncho/muscle spasm. Will trial heat as well. Patient may benefit from a trigger point injection. Able to obtain EKG once patient more comfortable. Per my read no significant changes from prior. Did order labs including troponin, CBC, CMP, and BNP though I suspect this is a noncardiac event. Case discussed with tres Sandoval. Resident Activity Tracking Resident Involvement: Resident Care Provided Care Provided: Adult Hospital Medicine
[2023-12-03 00:50] LABS: Basophils # (auto) 0.06 K/uL (0.00-0.20); Basophils % (auto) 0.3 %; Hematocrit (blood only) 41.4 % (42.0-52.0); Hemoglobin 13.2 g/dl (14.0-18.0); Immature Granulocytes # (auto) 1.05 K/uL (0.01-0.20); Immature Granulocytes % (auto) 4.5 %; Lymphocytes # (auto) 1.24 K/uL (1.20-3.40); Lymphocytes % (auto) 5.3 %; Mean Corpuscular Hemoglobin 25.8 pg (25.0-34.0); Mean Corpuscular Hgb Conc 31.9 g/dL (32.0-36.0); Mean Platelet Volume 9.7 fL (9.4-12.4); Monocytes # (auto) 1.75 K/uL (0.11-0.59); Monocytes % (auto) 7.5 %; Neutrophils # (auto) 19.19 K/uL (1.40-6.50); Neutrophils % (auto) 82.4 %; Nucleated RBC # (auto) 0.02 K/uL (0.00-0.12); Nucleated RBC % (auto) 0.1 %; Platelet Count 339 K/uL (130-400); RDW Coefficient of Variation 17.3 % (11.5-14.5); RDW Standard Deviation 48.9 fL (36.4-46.3); Red Blood Count 5.11 M/uL (4.70-6.10); White Blood Count 23.29 K/ul (4.8-10.8)
[2023-12-03 01:27] LABS: Albumin Globulin Ratio 1.6 (0.9-2); Albumin Level 3.3 gm/dl (3.4-5.0); BUN Creatinine Ratio 40.3 (10-20); Calcium 8.1 mg/dl (8.6-10.3); Creatinine Clr Calc Pharmacy 154.4 ml/min; Est GFR (African American) 119.4 ml/min; Globulin 2.1 gm/dl (2.5-4.0); Potassium 4.4 mmol/L (3.5-5.1); Total Protein 5.4 gm/dl (6.0-8.3)
[2023-12-03 01:34] LABS: Troponin I High Sensitivity 5.9 pg/ml (0-20)
[2023-12-03] MEDS: CYCLOBENZAPRINE HCL 5 MG TAB PO STA (01:58)
[2023-12-03 08:53] LABS: Troponin I High Sensitivity 5.1 pg/ml (0-20)
--- NOTE | 2023-12-03 10:15 | Ultrasound Report ---
ULTRASOUND RIGHT UPPER QUADRANT ABDOMEN CLINICAL HISTORY: Epigastric/right upper quadrant abdominal pain. COMPARISON STUDY: Abdominal CT dated 03/09/2022. TECHNIQUE: Real-time, grayscale, and color flow sonography of the right upper quadrant of the abdomen was performed. Images are reviewed in the transverse and longitudinal planes. FINDINGS: Liver: The liver is mildly enlarged and demonstrates heterogeneously increased echotexture indicating steatosis. There is no intrahepatic biliary ductal dilatation. The main portal vein is patent. Gallbladder: The gallbladder is surgically absent. No sonographic abnormalities seen in the gallbladd er fossa. The common bile duct measures up to 0.4 cm in diameter. Pancreas: Not visualized due to overlying bowel gas. Right kidney: Survey images of the right kidney demonstrate normal size and echotexture. There is no hydronephrosis. Ascites: None. IMPRESSION: 1. No acute sonographic abnormality is identified noting status post cholecystectomy. 2. Hepatic steatosis. 3. Nonvisualization of the pancreas. ACT 112: Negative or not required by law. Electronically signed by: Atilio Pace M.D. 12/03/2023 10:14 AM
[2023-12-03] MEDS: LANTUS PER UNIT CHARGE SQ SCH (10:16)
--- NOTE | 2023-12-03 15:48 | Psychiatric Consultation ---
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 MDD (major depressive disorder), recurrent episode, moderate F33.1 Alcohol use disorder, severe, dependence F10.20
[2023-12-03] MEDS: SUCRALFATE 1 GM/10 ML UDC PO SCH (20:30)
[2023-12-03] MEDS: busPIRone 5 MG TAB PO SCH (20:31)
--- NOTE | 2023-12-03 20:41 | Hospitalist Progress Note ---
Date of Service December 03, 2023 Assessment & Plan (1) Acute hypoxic respiratory failure: Plan: 2nd to COPD exacerbation, NAVEED pneumonia, +/- acute diastolic CHF. Resolving. O2 requirement at rest now resolved. Will need formal 2-step - order for the am. [employer] respiratory panel from admission - negative. Repeat COVID testing 48 hrs post-admission - also negative. (2) COPD exacerbation: Plan: Improving. Cont PO prednisone 40mg daily; start today. Wean by 10mg every 3 days to off. Continue duonebs Q4h. Cont pulm toilet with flutter valve + incentive spirometry. Cont mucinex 1200mg BID. Cont abx for NAVEED pneumonia/sinusitis. Cont formoterol BID. Cont pulmicort nebs BID. Patient needs tobacco cessation. Of note - sputum cx this admission was negative. Will need [facility] f/u post-d/c. Good pulm rehab candidate - patient interested. (3) Sinusitis: Plan: Finish abx course with cefuroxime BID. Day #10 of 10 today. Resolved (4) Person under investigation for COVID-19: Plan: COVID ruled out -- neg COVID PCR testing x 2 this admission No isolation needs at this time (5) Atrial fibrillation with rapid ventricular response: Plan: Previous provider started diltiazem in [place] of metoprolol. Remains on daily digoxin. Continue Eliquis 5mg BID. Rates at rest largely ok, but remains poorly controlled with walking -- some of which is physiologic in response to severe COPD flare. Consider adding back metoprolol if HRs stay high with activity. Cont to monitor. (6) Alcohol dependence: Plan: 6 shots of whiskey/day along with beer at times. No prior h/o alcohol withdrawal. Had gabapentin protocol earlier this admission. Now weaned off. No evidence of etoh withdrawal today. Cont Thiamine 100mg daily + folic acid 1mg daily. (7) Tobacco abuse: Plan: Nicoderm patch 21mg/day. Smoking cessation. (8) Hypertension: Plan: Continue diltiazem. Continue flomax. Continue losartan. (9) GERD (gastroesophageal reflux disease): Plan: PPI twice daily. add carafate. last night's episode - GERD/esophageal spasm? (10) FELICIA (obstructive sleep apnea): Plan: Outpatient BIPAP settings 18/01 per records. (11) DVT prophylaxis: Plan: Eliquis 5mg BID. (12) Hypomagnesemia: Plan: repleted resolved (13) Diabetes mellitus type 2, uncontrolled: Plan: a1c 7.2% but uncontrolled BSGs due to steroids cont lantus cont novolog cont metformin xr 500mg BID w/ meals appreciate DM educator assistance (14) History of traumatic brain injury: Plan: 2nd to 2021 daily headaches since frequent dizziness mood disorder etc requests imaging prior CT head negative MRI brain with old appearing, small, right sided parietal lobe CVA due to a.fib? 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 due to prior TBI?? may benefit from neurology f/u to follow these chronic neuro symptoms as well as the rightsided stroke seen left message for his significant other this evening on her voicemail hopefully can d/c home tomorrow Admission and Anticipated Discharge Date Admission Date: November 23, 2023 Subjective patient met with psych today plan is to resume prozac 20mg daily overnight had an episode of high epigastric pain that awoke him from sleep lasted 60-90 minutes then finally "eased off" was burping/belching alot during the episode he can't say which med (he got multiple meds ordered by night MD) helped him the most he thinks it was reflux he asks for referral to pulmonary rehab at discharge we discussed getting a stress test as outpatient - he is agreeable breathing is improved denies dyspnea at rest eating 100% meals tele - a.fib Review of Systems Review of Systems: gen - no fevers or chills cv - no chest pain despite last pm's episode pulm - cough improved GI - no N/V Physical Exam Physical Exam: gen - obese, looks the best he has looked all admission, NAD, no distress neck - no JVD mouth - MMM, no thrush heart - irregularly irregular, rate <100, s1 s2, no murmur lungs - mild wheezes b/l; mild rales bases (fine, dry); no increased work of breathing abd - soft NT ND BS+ ext - trace edema b/l , pulses 2+ b/l psych - a/o x 3; less anxious today; not tearful today Results & Data Results & Data Vital Signs (Past 12 Hours) Vital Signs Temp Pulse Pulse Resp BP Pulse Ox O2 Del Method 12/03/23 19:53 36.3 C L 86 18 144/81 H 93 Room Air 12/03/23 19:38 Room Air 12/03/23 19:24 90 18 93 Room Air 12/03/23 16:42 95 H 12/03/23 15:26 36.2 C L 96 H 20 139/88 94 Room Air 12/03/23 15:22 95 H 20 92 Room Air 12/03/23 10:54 36.5 C 95 H 20 168/71 H 94 Room Air 12/03/23 09:59 98 H 16 94 Room Air Laboratory Results Laboratory Results - last 24 hr 12/03/23 12/03/23 12/03/23 00:36 07:03 08:08 WBC 23.29 H RBC 5.11 Hgb 13.2 L Hct 41.4 L MCV 81.0 MCH 25.8 MCHC 31.9 L RDW Std Deviation 48.9 H RDW Coeff of [place] 17.3 H Plt Count 339 MPV 9.7 Immature Gran % (Auto) 4.5 Neut % (Auto) 82.4 Lymph % (Auto) 5.3 [place] % (Auto) 7.5 Eos % (Auto) 0.0 Baso % (Auto) 0.3 Neut # (Auto) 19.19 H Lymph # (Auto) 1.24 [place] # (Auto) 1.75 H Eos # (Auto) 0.00 Baso # (Auto) 0.06 Immature Gran # (Auto) 1.05 H Absolute Nucleated RBC 0.02 Nucleated RBC % (auto) 0.1 Sodium 136 Potassium 4.4 Chloride 100 Carbon Dioxide 29 Anion Gap 7 BUN 27 H Creatinine 0.67 Est Cr Clr Drug Dosing 154.4 Est GFR ( Amer) 119.4 Est GFR (Non-Af Amer) 103.0 BUN/Creatinine Ratio 40.3 H Glucose 128 H POC Glucose 211 H Calcium 8.1 L Total Bilirubin 1.0 AST 23 ALT 93 H Alkaline Phosphatase 29 L Troponin I High Sens 5.9 5.1 B-Natriuretic Peptide 22 Total Protein 5.4 L Albumin 3.3 L Globulin 2.1 L Albumin/Globulin Ratio 1.6 Lipase 5 L 12/03/23 12/03/23 12/03/23 10:54 16:22 20:06 WBC RBC Hgb Hct MCV MCH MCHC RDW Std Deviation RDW Coeff of [place] Plt Count MPV Immature Gran % (Auto) Neut % (Auto) Lymph % (Auto) [place] % (Auto) Eos % (Auto) Baso % (Auto) Neut # (Auto) Lymph # (Auto) [place] # (Auto) Eos # (Auto) Baso # (Auto) Immature Gran # (Auto) Absolute Nucleated RBC Nucleated RBC % (auto) Sodium Potassium Chloride Carbon Dioxide Anion Gap BUN Creatinine Est Cr Clr Drug Dosing Est GFR ( Amer) Est GFR (Non-Af Amer) BUN/Creatinine Ratio Glucose POC Glucose 129 H 100 H 74 Calcium Total Bilirubin AST ALT Alkaline Phosphatase Troponin I High Sens B-Natriuretic Peptide Total Protein Albumin Globulin Albumin/Globulin Ratio Lipase PG Care Time/CCT Total # of Minutes Spent Total Time Spent with Patient: Total time spent is greater than 50% in coordination of care (as documented) at patient's floor/unit and/or counseling patient: Coding Level of Care Code 28180 SUB INP/OBS CARE 3/50MIN Diagnoses Acute hypoxic respiratory failure J96.01 COPD exacerbation J44.1 Sinusitis J32.9 Person under investigation for COVID-19 Z20.822 Atrial fibrillation with rapid ventricular response I48.91 Alcohol dependence F10.20 Tobacco abuse Z72.0 Hypertension I10 GERD (gastroesophageal reflux disease) K21.9 FELICIA (obstructive sleep apnea) G47.33 DVT prophylaxis Z29.9 Hypomagnesemia E83.42 Diabetes mellitus type 2, uncontrolled History of traumatic brain injury Z87.820 Chronic daily headache R51.9 Mood disorder F39 Abdominal pain R10.9
[2023-12-04] MEDS: FLUoxetine HCL 20 MG CAP PO SCH (08:12)
[2023-12-04] MEDS: METOPROLOL TARTRATE 25 MG TAB PO STA (10:35)
[2023-12-04 12:30] VITALS: TEMP 97.9
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
[2023-12-04 15:40] VITALS: PULSE 88; RESP 18; O2SAT 94
[2023-12-04 15:51] VITALS: BP 144/91
--- NOTE | 2023-12-04 22:18 | Electrocardiogram Report ---
Test Reason : Blood Pressure : */* mmHG Vent. Rate : 92 BPM Atrial Rate : 277 BPM P-R Int : * ms QRS Dur : 100 ms QT Int : 372 ms P-R-T Axes : * -6 199 degrees QTcB Int : 460 ms Poor data quality, interpretation may be adversely affected Atrial fibrillation Incomplete right bundle branch block Abnormal ECG When compared with ECG of 30-Nov-2023 12:02, No significant change was found Confirmed by Kareem Urena ([id number]) on 12/04/2023 10:17:59 PM Referred By: REFERRED SELF Confirmed By: Kareem Urena
== END 2023-12-04 16:57 | disposition home or self-care (01) | DRG 189 ==
LOC: ED 05:58 → SUATTDRO 09:35 → EDINP 09:35 → 2S 13:05